=== PATIENT | female | born 1980 | race Caucasian/White ===

== ENCOUNTER → 2019-05-22 07:04 | Outpatient (CLI) | payer BC, SELFPAY ==
[2019-05-22 08:39] LABS: Alanine Aminotransferase 22 IU/L (9-52); Albumin 4.3 g/dL (3.5-5.0); Albumin Globulin Ratio 1.3 (1.0-2.8); Alkaline Phosphatase 62 U/L (38-126); Aspartate Aminotransferase 22 IU/L (14-36); BUN Creatinine Ratio 23.3 (6-22); Bilirubin Total 0.4 mg/dL (0.2-1.3); Blood Urea Nitrogen 14 mg/dL (7-17); Calcium 9.2 mg/dL (8.4-10.2); Carbon Dioxide 27 mmol/L (22-32); Chloride 103 mmol/L (98-107); Cholesterol 146 mg/dL (140-199); Estimated Glomerular Filt Rate > 60.0 mL/min (>60); Globulin 3.3 g/dL (1.7-4.1); Glucose 101 mg/dL (70-100); HDL Cholesterol 39 mg/dL (40-60); HEMOLYSIS < 15 (0-50); LDL Cholesterol Calculated 70 mg/dL (<100); Potassium 3.5 mmol/L (3.4-5.1); Sodium 139 mmol/L (137-145); Total Protein 7.6 g/dL (6.3-8.2); Triglycerides 186 mg/dL (35-150)
[2019-05-22 08:46] LABS: Creatinine Urine Random 135.7 mg/dL
[2019-05-22 08:50] LABS: Microalbumi Creatinin Ratio Ur 11.7 ug/mg CR (<30); Microalbumin Urine Random 1.6 mg/dL (0-1.6)
[2019-05-22 09:05] LABS: Thyroid Stimulating Hormone 2.14 uIU/mL (0.47-4.68)
== END ==
PROVIDERS: PCP Physician Assistant; Visit Provider Physician Assistant
DX: Z00.00 Encounter for general adult medical examination without abnormal findings (principal); Z13.1 Encounter for screening for diabetes mellitus; Z13.220 Encounter for screening for lipoid disorders; Z13.6 Encounter for screening for cardiovascular disorders
CPT/HCPCS: 36415; 80053; 80061; 82043; 82570; 84443

== ENCOUNTER → 2020-05-16 08:00 | Outpatient (CLI) | payer BC, SELFPAY ==
[2020-05-16 10:02] LABS: Alanine Aminotransferase 18 IU/L (<35); Albumin 4.5 g/dL (3.5-5.0); Albumin Globulin Ratio 1.5 (1.0-2.8); Alkaline Phosphatase 51 U/L (38-126); Aspartate Aminotransferase 27 IU/L (14-36); BUN Creatinine Ratio 20.3 (6-22); Bilirubin Total 0.3 mg/dL (0.2-1.3); Blood Urea Nitrogen 14 mg/dL (7-17); Calcium 9.2 mg/dL (8.4-10.2); Carbon Dioxide 25 mmol/L (22-32); Chloride 106 mmol/L (98-107); Estimated Glomerular Filt Rate > 60.0 mL/min (>60); Glucose 99 mg/dL (70-100); HEMOLYSIS < 15 (0-50); Potassium 3.5 mmol/L (3.4-5.1); Sodium 139 mmol/L (137-145); Total Protein 7.5 g/dL (6.3-8.2)
[2020-05-16 10:36] LABS: Thyroid Stimulating Hormone 3.65 uIU/mL (0.47-4.68)
== END ==
PROVIDERS: PCP Family Medicine; Referring Provider Family Medicine; Visit Provider Family Medicine
DX: Z00.00 Encounter for general adult medical examination without abnormal findings (principal); F32.9 Major depressive disorder, single episode, unspecified
CPT/HCPCS: 36415; 80053; 84443

== ENCOUNTER → 2020-08-05 09:53 | Outpatient (CLI) | payer BC, SELFPAY ==
--- NOTE | 2020-08-05 09:55 | DI.RAD.S_ITS ---
PROCEDURE: XR LUMBAR SPINE 2-3V INDICATIONS: Acute low back pain TECHNIQUE: 3 views of the lumbar spine were acquired. COMPARISON: [facility], CR, XR CERVICAL SPINE 2V OR 3V, 08/05/2020, 9:51. FINDINGS: Bones: 5 [id number] vertebrae are present. There is minimal levoconvex lumbar scoliotic curvature seen. No focal AP alignment abnormality is seen. No vertebral body compression fractures. No suspicious bony lesions. The disc heights are well preserved. Mild lower lumbar spine facet arthropathy is seen. Soft tissues: Overlying bowel gas pattern is normal. No suspicious soft tissue calcifications. Right pelvis clips are seen. IMPRESSION: No acute abnormality is seen on these plain films. Lower lumbar spine facet arthropathy can be seen. Minimal levoconvex scoliotic curvature. Dictated by: Bishnu Ashton M.D. on 08/05/2020 at 9:53 Approved by: Bishnu Ashton M.D. on 08/05/2020 at 9:54
--- NOTE | 2020-08-05 09:55 | DI.RAD.S_ITS ---
PROCEDURE: XR CERVICAL SPINE 2V OR 3V INDICATIONS: Progressive neck and right shoulder pain TECHNIQUE: 3 view(s) of the cervical spine were acquired. COMPARISON: [facility], CR, XR LUMBAR SPINE 2-3V, 08/05/2020, 9:51. FINDINGS: Bones: No fractures or dislocations to the T1 level. The lateral masses of C1 appear intact on the odontoid view. No suspicious bony lesions. There is straightening of the normal cervical lordosis. The disc heights are well preserved. Soft tissues: No prevertebral soft tissue swelling. The visualized lung apices are unremarkable. IMPRESSION: Straightening of the normal cervical lordosis is seen, which is commonly observed in patients with muscular spasm. Dictated by: Bishnu Ashton M.D. on 08/05/2020 at 9:54 Approved by: Bishnu Ashton M.D. on 08/05/2020 at 9:55
== END ==
PROVIDERS: PCP Family Medicine; Referring Provider Family Medicine; Visit Provider Family Medicine
DX: S16.1XXA Strain of muscle, fascia and tendon at neck level, initial encounter (principal); M54.2 Cervicalgia; M25.511 Pain in right shoulder; M54.5 Low back pain; M47.816 Spondylosis without myelopathy or radiculopathy, lumbar region
CPT/HCPCS: 72040; 72100

== ENCOUNTER 2020-08-12 17:06 | Emergency (ER) | payer BC, SELFPAY ==
[2020-08-12] VITALS (8 sets, daily range): BP systolic 140–188; BP diastolic 88–108; PULSE 61–67; RESP 13–48; TEMP 36.6; O2SAT 98–99; BMI 28.2
[2020-08-12] MEDS: LIDOCAINE 2% 6 ML in SODIUM CHLORIDE 0.9% 50 ML 336 ML IV (18:10)
[2020-08-12] MEDS: ONDANSETRON 4 MG/2 ML INJ IV (18:10)
[2020-08-12 18:16] LABS: Bacteria Urine Many (>30); Culture Indicated Urine Specimen Cultured; RBC Urine 5-10/HPF (0-5/HPF); Squamous Epithelial Cell Urine 1-5 /HPF (0-5/HPF); WBC Urine 5-10/HPF (0-5/HPF)
[2020-08-12] MEDS: KETOROLAC 60 MG/2 ML VIAL 30 MG IV (18:18)
--- NOTE | 2020-08-12 18:23 | ED_ITS ---
HPI - Abdominal Pain General Chief Complaint: Abdominal Pain Stated Complaint: thinks she has a kidney stone Time Seen by Provider: 08/12/20 17:29 Source: patient Mode of arrival: Ambulatory Limitations: no limitations History of Present Illness HPI narrative: 39-year-old woman with a history kidney stones 5 years ago status post lithotripsy presents with 2 days of bladder symptoms including burning and a sense of incomplete voiding and pressure. She increased cranberry juice hoping that things would improve however she woke this morning and felt generally unwell without a fever vomiting, diarrhea, cough, chest pain, dyspnea. Began developing left-sided flank pain around 11:00 a.m. high up near the kidney described as a burning, constant type pain. Only other complaint is a sense of feeling bloated. Related Data Home Medications Medication Instructions Recorded Confirmed cetirizine 10 mg tablet 10 mg PO DAILY 04/07/19 08/05/20 fluticasone propionate 50 2 spray NASAL DAILY 04/07/19 08/05/20 mcg/actuation nasal spray,suspension multivitamin 1 tab PO DAILY 05/20/19 08/05/20 Previous Rx's Medication Instructions Recorded hydrochlorothiazide 25 mg tablet 25 mg PO DAILY PRN #30 tab 05/20/19 zaleplon 5 mg capsule See Rx Instructions PO BEDTIME PRN 11/11/19 #45 cap sertraline 100 mg tablet 100 mg PO DAILY #90 tab 03/08/20 cyclobenzaprine 10 mg tablet 10 mg PO BEDTIME #20 tab 07/13/20 naproxen 500 mg tablet 500 mg PO BID #30 tab 07/13/20 tramadol 50 mg tablet 50 mg PO TID PRN #30 tab 07/13/20 lidocaine 5 % topical patch 1 patch TOP DAILY #30 each 08/05/20 methocarbamol 500 mg tablet 500 mg PO TID #30 tab 08/05/20 naproxen 500 mg tablet 500 mg PO BID #60 tab 08/05/20 levofloxacin 500 mg PO DAILY #7 tab 08/12/20 Allergies Allergy/AdvReac Type Severity Reaction Status Date / Time Sulfa (Sulfonamide Allergy Severe Anaphylactic Verified 08/12/20 17:21 Antibiotics) shock Penicillins Allergy Intermediate Hives Verified 08/12/20 17:21 cefaclor [From [facility]] Allergy Mild Hives Verified 08/12/20 17:21 Review of Systems Review of Systems Narrative: Remainder of review of systems including constitutional, ENT, cardiovascular, respiratory, GI, , musculoskeletal, skin, neurologic and psychiatric systems reviewed and are unremarkable except as noted in HPI. Patient History Medical History Asthma (Chronic) Cervical strain (Acute) Fractures (Resolved) Kidney stones (Chronic ~2013) Lumbar strain (Acute) Seasonal allergies (Chronic ~2015) Surgical History H/O lithotripsy (Acute) H/O: hysterectomy (Acute) Family History Father Hyperlipidemia Hypertension Grandfather Cancer Grandmother Cancer Grandfather Dementia Grandmother Dementia Social History Smoking Status: Never smoker second hand exposure: No alcohol intake: never substance use type: does not use Smoking Status: Never smoker Substance Use Type: does not use Exam Narrative Exam Narrative: General: Healthy appearing, in no acute distress. Able to give a complete and coherent history. Well-nourished well-developed HEENT: Moist mucous membranes, normal sclera with reactive pupils, Neck: No JVD, supple Respiratory: Lungs are clear to auscultation, no wheezing no rales no rhonchi. Full and symmetrical air movement Cardiac: Regular rate and rhythm no murmurs no bruits Abdomen: Soft slightly distended, hypoactive bowel tones, left upper flank pain radiating into the left lower quadrant without rebound or guarding Skin: Warm and dry, no rashes Neurologic: Grossly neurologically intact with no obvious asymmetries or abnormalities Extremities: No trauma, well perfused Psych: Cooperative, appropriate insight and affect Initial Vital Signs Initial Vital Signs: Vital Signs Pulse Rate 64 08/12/20 17:14 Blood Pressure 186/103 H 08/12/20 17:14 Pulse Oximetry 99 08/12/20 17:14 Course Orders Ordered: ED Orders 08/12/20 17:55 Urine Culture Stat Urine Microscopic Stat 08/12/20 18:27 CT kidney ureter bladder (KUB) Stat 08/12/20 20:23 Basic Metabolic Panel Stat Complete Blood Count AUTO DIFF Stat Discontinued Medications Lidocaine HCl 6 ml/ Sodium (Chloride) 56 mls @ 336 mls/hr IV NOW ONE Stop: 08/12/20 17:47 Last Infusion: 08/12/20 18:27 Dose: 0 mls/hr Documented by: Admin: 08/12/20 18:10 Dose: 336 mls/hr Documented by: KT Levofloxacin (Levaquin) 750 mg in 150 mls @ 100 mls/hr IV NOW ONE Stop: 08/12/20 21:53 Last Infusion: 08/12/20 22:07 Dose: 0 mls/hr Documented by: Admin: 08/12/20 20:37 Dose: 100 mls/hr Documented by: CAROLA Ketorolac Tromethamine (Toradol) 30 mg IV NOW ONE Stop: 08/12/20 18:00 Last Admin: 08/12/20 18:18 Dose: 30 mg Documented by: KT Ondansetron HCl (Zofran) 4 mg IV NOW ONE Stop: 08/12/20 17:47 Last Admin: 08/12/20 18:10 Dose: 4 mg Documented by: KT Vital Signs Vital signs: Vital Signs - 8 hr 08/12/20 17:14 08/12/20 17:21 08/12/20 17:23 Temperature 97.9 F Pulse Rate 64 67 65 Respiratory Rate 18 22 Blood Pressure 186/103 H 186/103 H Pulse Oximetry 99 99 99 08/12/20 18:12 08/12/20 18:16 08/12/20 18:20 Temperature Pulse Rate 67 Respiratory Rate 48 H 23 Blood Pressure 188/97 H 181/108 H Pulse Oximetry 08/12/20 18:30 08/12/20 21:54 Temperature Pulse Rate 61 63 Respiratory Rate 13 20 Blood Pressure 173/102 H 140/88 Pulse Oximetry 98 MDM - Abdominal Pain Medical Records Attestation: I reviewed the patient's medical records. Lab Data Attestation: I reviewed the patient's lab results. Result diagrams: 08/12/20 20:23 08/12/20 20:23 Labs: Lab Results 08/12/20 08/12/20 08/12/20 Range/Units 17:55 20:23 20:23 WBC 8.8 (4.5-11.0) X10^3/uL RBC 4.38 (4.0-5.2) X10^6/uL Hgb 12.3 (12.0-16.0) g/dL Hct 37.2 (36-46) % MCV 85.0 (80-100) fL MCH 28.1 (26-34) PG MCHC 33.1 (30-36) % RDW 13.9 (11.6-14.8) % Plt Count 225 (150-400) X10^3/uL Neut % (Auto) 53.4 (50-75) % Lymph % (Auto) 34.1 (25-40) % Mcdonald % (Auto) 8.0 (3-14) % Eos % (Auto) 4.0 (2-4) % Baso % (Auto) 0.5 (0-2) % Neut # (Auto) 4700 (8354-8858) /uL Lymph # (Auto) 3000 (7524-1314) /uL Mcdonald # (Auto) 700 (0-900) /uL Eos # (Auto) 400 (0-450) /uL Baso # (Auto) 0 (0-100) /uL Sodium 139 (137-145) mmol/L Potassium 3.8 (3.4-5.1) mmol/L Chloride 107 (98-107) mmol/L Carbon Dioxide 27 (22-32) mmol/L BUN 11 (7-17) mg/dL Creatinine 0.52 (0.52-1.04) mg/dL Estimated GFR > 60.0 (>60) mL/min BUN/Creatinine Ratio 21.2 (6-22) Glucose 94 (70-100) mg/dL Calcium 8.9 (8.4-10.2) mg/dL Urine RBC 5-10/hpf H (0-5/HPF) Urine WBC 5-10/hpf H (0-5/HPF) Ur Squamous Epith Cells 1-5 /hpf (0-5/HPF) Urine Bacteria Many (>30) H (None) Ur Culture Indicated? Specimen cultured Point of care testing: Urine Dip Bedside Urine Glucose Negative Bedside Urine Bilirubin - Negative Bedside Urine Ketone - Negative Urine Specific [place] 1.015 Bedside Urine Occult Blood ++ Bedside Urine pH 6.5 Bedside Urine Protein - Negative Bedside Urine Urobilinogen - Negative Bedside Urine Nitrite - Negative Bedside Urine Leukocytes - Negative Esterase Imaging Data CT KUB: Radiologist's Impression: FINDINGS: Image quality: Excellent. Lung bases: Lung bases are clear. Heart size is normal. Urinary system: Both kidneys are normal in size. No kidney stones. No hydronephrosis or perinephric fat stranding. Both ureters appear non-dilated throughout their expected courses. Bladder wall thickness is normal; no calcified bladder stones. Other solid organs: Liver is normal in size. Gallbladder is unremarkable . Pancreas is normal in contours. Spleen is normal in size. No adrenal nodules. Peritoneum and bowel: Unenhanced bowel loops demonstrate normal wall thickness and caliber. The appendix is not visualized; however surgical clips are present in the region of the cecum in the lower quadrant suggesting prior appendectomy. No free fluid or air. Nodes and vessels: No retroperitoneal or mesenteric adenopathy by size criteria. Aorta and inferior vena cava are normal in caliber. Abdominal wall: No ventral hernias. Pelvis: No free pelvic fluid. No inguinal hernias or adenopathy. Bones: No suspicious bony lesions. No vertebral body compression fractures. IMPRESSION: 1. No hydronephrosis, nephrolithiasis, hydroureter, or ureterolithiasis. 1. No acute intra-abdominal findings. Findings likely associated with prior appendectomy. Dictated by: Zahira Mcdaniels M.D. on 08/12/2020 at 18:53 MDM Narrative Medical decision making narrative: 39-year-old woman presents with dysuria for 48 hours and increasing left flank pain. Workup suggest no evidence for acute kidney stone nor dramatic pyelonephritis. She is not septic. Due to her allergies, Levaquin was chosen as the treatment drug of choice. First dose is given IV in the emergency department. She will be discharged home with a prescription for same. Along with instructions on when to return and signs and symptoms of pyelonephritis. Safe for home discharge Discharge Plan Departure Patient Disposition: Home Clinical Impression: Urinary tract infection Qualifiers: Urinary tract infection type: acute cystitis Hematuria presence: with hematuria Qualified Code(s): N30.01 - Acute cystitis with hematuria Discharge Date/Time: 08/12/20 22:09 Instructions: DI for Kidney Infection Activity Restrictions/Additional Instructions: Thank you for coming in today There is no sign of a kidney stone. Your lab work was very reassuring with no signs of sepsis or overwhelming infection. Your urine clearly looks like a bladder infection and with your worsening symptoms I am concerned that this will develop or is beginning to develop into a kidney infection. With all of your allergies, I have used an antibiotic called Levaquin. I will ask you to continue a full 7 day course. If you develop worsening fevers, chills, pain or other symptoms that are new or concerning please return to the emergency department. I wish you the best Prescriptions: New levofloxacin 500 mg tablet 500 mg PO DAILY Qty: 7 RF: 0 No Action zaleplon 5 mg capsule See Rx Instructions PO BEDTIME PRN (Reason: difficulty staying asleep) Qty: 45 RF: 0 sertraline 100 mg tablet 100 mg PO DAILY Qty: 90 RF: 3 cetirizine [Zyrtec] 10 mg tablet 10 mg PO DAILY RF: 0 fluticasone propionate [Flonase Allergy Relief] 50 mcg/actuation spray,s uspension 2 spray NASAL DAILY RF: 0 multivitamin tablet 1 tab PO DAILY RF: 0 hydrochlorothiazide 25 mg tablet 25 mg PO DAILY PRN (Reason: edema) Qty: 30 RF: 3 cyclobenzaprine 10 mg tablet 10 mg PO BEDTIME Qty: 20 RF: 0 tramadol 50 mg tablet 50 mg PO TID PRN (Reason: pain) Qty: 30 RF: 0 naproxen 500 mg tablet 500 mg PO BID Qty: 30 RF: 0 lidocaine 5 % adhesive patch,medicated 1 patch TOP DAILY Qty: 30 RF: 0 methocarbamol 500 mg tablet 500 mg PO TID Qty: 30 RF: 1 naproxen 500 mg tablet 500 mg PO BID Qty: 60 RF: 1 Referrals: Robert Ramirez, [Primary Care Provider] -
--- NOTE | 2020-08-12 18:27 | DI.CT.S_ITS ---
PROCEDURE: CT KIDNEY URETER BLADDER (KUB) INDICATIONS: Left flank pain with hematuria TECHNIQUE: Noncontrast 5 mm thick sections acquired from the diaphragms to the symphysis. 5 mm thick coronal and sagittal reformats were then performed. For radiation dose reduction, the following was used: automated exposure control, adjustment of mA and/or kV according to patient size. COMPARISON: None. FINDINGS: Image quality: Excellent. Lung bases: Lung bases are clear. Heart size is normal. Urinary system: Both kidneys are normal in size. No kidney stones. No hydronephrosis or perinephric fat stranding. Both ureters appear non-dilated throughout their expected courses. Bladder wall thickness is normal; no calcified bladder stones. Other solid organs: Liver is normal in size. Gallbladder is unremarkable . Pancreas is normal in contours. Spleen is normal in size. No adrenal nodules. Peritoneum and bowel: Unenhanced bowel loops demonstrate normal wall thickness and caliber. The appendix is not visualized; however surgical clips are present in the region of the cecum in the lower quadrant suggesting prior appendectomy. No free fluid or air. Nodes and vessels: No retroperitoneal or mesenteric adenopathy by size criteria. Aorta and inferior vena cava are normal in caliber. Abdominal wall: No ventral hernias. Pelvis: No free pelvic fluid. No inguinal hernias or adenopathy. Bones: No suspicious bony lesions. No vertebral body compression fractures. IMPRESSION: 1. No hydronephrosis, nephrolithiasis, hydroureter, or ureterolithiasis. 1. No acute intra-abdominal findings. Findings likely associated with prior appendectomy. Dictated by: Zahira Mcdaniels M.D. on 08/12/2020 at 18:53 Approved by: Zahira Mcdaniels M.D. on 08/12/2020 at 18:56
[2020-08-12 20:31] LABS: Add Manual Diff / Slide Review NO; Basophils Absolute Auto 0 /uL (0-100); Basophils Percent Auto 0.5 % (0-2); Eosinophils Absolute Auto 400 /uL (0-450); Hematocrit 37.2 % (36-46); Hemoglobin 12.3 g/dL (12.0-16.0); Lymphocytes Absolute Auto 3000 /uL (1100-4500); Lymphocytes Percent Auto 34.1 % (25-40); Mean Corpuscular HGB Conc 33.1 % (30-36); Mean Corpuscular Hemoglobin 28.1 PG (26-34); Monocytes Absolute Auto 700 /uL (0-900); Neutrophils Absolute Auto 4700 /uL (1500-7000); Neutrophils Percent Auto 53.4 % (50-75); Platelet Count 225 X10^3/uL (150-400); Red Blood Cell Count 4.38 X10^6/uL (4.0-5.2); Red Cell Distribution Width 13.9 % (11.6-14.8); White Blood Cell Count 8.8 X10^3/uL (4.5-11.0)
[2020-08-12] MEDS: levoFLOXacin 750 MG/150 ML PIGGYBACK 100 MG IV (20:37)
[2020-08-12 20:43] LABS: BUN Creatinine Ratio 21.2 (6-22); Blood Urea Nitrogen 11 mg/dL (7-17); Calcium 8.9 mg/dL (8.4-10.2); Carbon Dioxide 27 mmol/L (22-32); Chloride 107 mmol/L (98-107); Estimated Glomerular Filt Rate > 60.0 mL/min (>60); Glucose 94 mg/dL (70-100); HEMOLYSIS < 15 (0-50); Potassium 3.8 mmol/L (3.4-5.1); Sodium 139 mmol/L (137-145)
== END 2020-08-12 22:09 | disposition home or self-care (01) ==
PROVIDERS: Emergency Medicine; Emergency Provider Emergency Medicine; PCP Family Medicine
DX: N30.01 Acute cystitis with hematuria (principal)
CPT/HCPCS: 74176; 80048; 81003; 81015; 85025; 87077; 87086; 87186; 96365; 96367; 96375; 99284; J1885; J1956; J2405

== ENCOUNTER → 2020-08-19 10:02 | Outpatient (CLI) | payer BC, SELFPAY | PROVIDERS: PCP Family Medicine; Visit Provider Family Medicine | DX: N30.01 Acute cystitis with hematuria (principal) | CPT/HCPCS: 87086 ==

== ENCOUNTER 2020-10-05 05:03 | Emergency (ER) | payer BC, SELFPAY ==
[2020-10-05] VITALS (12 sets, daily range): BP systolic 150–189; BP diastolic 81–104; PULSE 54–65; RESP 12–23; TEMP 36.8; O2SAT 98–100; BMI 28.2
[2020-10-05] MEDS: ONDANSETRON 4 MG/2 ML INJ IV ×2 (05:36→08:38)
[2020-10-05] MEDS: diazePAM 5 MG TABLET PO (05:36)
--- NOTE | 2020-10-05 05:39 | ED_ITS ---
HPI - General Adult <Kamran Rivas DO - Last Filed: 10/05/20 18:39> General Chief complaint: Dizziness Stated complaint: Dizzy, headache, weakness since 9pm Time Seen by Provider: 10/05/20 05:05 Source: patient and family Mode of arrival: Ambulatory Limitations: no limitations History of Present Illness HPI narrative: Patient is a 39-year-old female here for evaluation of dizziness and a slight headache. She states that the symptoms started last evening at approximately 2100 hours. She was sitting on the couch when she stood up the symptoms started. They have been consistent since then. When she closes her eyes she feels like the symptoms improved somewhat. Has had quite a bit of nausea. No ringing in her ears. No sore throat. No fevers. Has not tried anything for the symptoms prior to arrival. She also describes a slight headache and weakness in her lower extremities. Related Data Home Medications Medication Instructions Recorded Confirmed cetirizine 10 mg tablet 10 mg PO DAILY 04/07/19 08/19/20 fluticasone propionate 50 2 spray NASAL DAILY 04/07/19 08/19/20 mcg/actuation nasal spray,suspension multivitamin 1 tab PO DAILY 05/20/19 08/19/20 Previous Rx's Medication Instructions Recorded hydrochlorothiazide 25 mg tablet 25 mg PO DAILY PRN #30 tab 05/20/19 zaleplon 5 mg capsule See Rx Instructions PO BEDTIME PRN 11/11/19 #45 cap sertraline 100 mg tablet 100 mg PO DAILY #90 tab 03/08/20 cyclobenzaprine 10 mg tablet 10 mg PO BEDTIME #20 tab 07/13/20 naproxen 500 mg tablet 500 mg PO BID #30 tab 07/13/20 tramadol 50 mg tablet 50 mg PO TID PRN #30 tab 07/13/20 lidocaine 5 % topical patch 1 patch TOP DAILY #30 each 08/05/20 methocarbamol 500 mg tablet 500 mg PO TID #30 tab 08/05/20 naproxen 500 mg tablet 500 mg PO BID #60 tab 08/05/20 levofloxacin 500 mg PO DAILY #7 tab 08/12/20 diazepam [Valium] 5 mg PO Q6H PRN #14 tab 10/05/20 meclizine 25 mg PO Q6-8H PRN #14 tab 10/05/20 ondansetron 4 mg PO Q4H PRN #14 tab 10/05/20 Allergies Allergy/AdvReac Type Severity Reaction Status Date / Time Sulfa (Sulfonamide Allergy Severe Anaphylactic Verified 10/05/20 05:22 Antibiotics) shock Penicillins Allergy Intermediate Hives Verified 10/05/20 05:22 cefaclor [From Ceclor] Allergy Mild Hives Verified 10/05/20 05:22 Review of Systems <Kamran Rivas DO - Last Filed: 10/05/20 18:39> Constitutional Constitutional: Reports fatigue, Denies fever(s), Reports headache(s) and Reports weakness Eyes Eyes: Reports blurry vision ENT Ears, Nose, Mouth, and Throat: Reports vertigo, Reports dizziness, Reports headache(s), Reports disequilibrium and Denies sore throat Cardiovascular Cardiovascular: Denies chest pain and Denies dyspnea Respiratory Respiratory: Denies dyspnea Gastrointestinal Gastrointestinal: Denies abdominal pain, Reports nausea and Denies vomiting Genitourinary Genitourinary: Denies dysuria Genitourinary: Denies dysuria Musculoskeletal Musculoskeletal: Denies arthralgias and Denies myalgias Integumentary/Breasts Skin/Breast: Denies lesions and Denies rash Neurologic Neurologic: Denies behavioral changes, Denies confusion, Reports vertigo, Reports dizziness, Reports headache(s), Reports disequilibrium and Reports weakness Psychiatric Psychiatric: Denies behavioral changes and Denies confusion Endocrine Endocrine: Reports fatigue Hematologic/Lymphatic Hematologic/Lymphatic: Denies easy bleeding and Denies easy bruising Allergic/Immunologic Allergic/Immunologic: Denies urticaria Patient History <Kamran Rivas DO - Last Filed: 10/05/20 18:39> Medical History (Updated 10/05/20 @ 08:28 by Marc Foley MD) Asthma Cervical strain Fractures Kidney stones (~2013) Lumbar strain Seasonal allergies (~2015) Surgical History H/O lithotripsy H/O: hysterectomy Family History Father Hyperlipidemia Hypertension Grandfather Cancer Grandmother Cancer Grandfather Dementia Grandmother Dementia Social History Smoking Status: Never smoker second hand exposure: No alcohol intake: never substance use type: does not use Smoking Status: Never smoker alcohol intake frequency: other Substance Use Type: does not use Exam <DO Abdulkadir Everett Last Filed: 10/05/20 18:39> Initial Vital Signs Initial Vital Signs: Vital Signs Pulse Rate 62 10/05/20 05:20 Respiratory Rate 12 10/05/20 05:20 Blood Pressure 170/104 H 10/05/20 05:20 Pulse Oximetry 99 10/05/20 05:20 Const General: cooperative Limitations: mental status not altered HENMT Head: normal to inspection and normocephalic Ears: TM's normal bilaterally Nose: external nose normal Face and sinus: normal facial exam Eyes Pupils: PERRL EOM: EOM intact bilaterally Resp Effort & Inspection: normal respiratory effort Auscultation: clear to auscultation bilaterally Cardio Rate: regular rate Rhythm: regular rhythm GI Inspection: non-distended Palpation: soft and No firm Skin Lesions: no lesions Rashes: no rashes Neuro General: patient alert, patient awake and patient oriented x3 Cognition: normal cognition Motor: muscle tone normal throughout Sensory Exam: no sensory deficits noted Extrem General: normal to inspection and capillary refill normal Psych Appearance: grossly normal and well kempt <Marc Foley MD - Last Filed: 10/05/20 09:14> Initial Vital Signs Initial Vital Signs: Vital Signs Pulse Rate 62 10/05/20 05:20 Respiratory Rate 12 10/05/20 05:20 Blood Pressure 170/104 H 10/05/20 05:20 Pulse Oximetry 99 10/05/20 05:20 Scores <DO Abdulkadir Everett Last Filed: 10/05/20 18:39> GCS [place] coma scale eye opening: Spontaneous [place] coma scale verbal response: Orientated [place] coma scale motor response: Obey commands [place] coma scale total score: 15 Course <DO Abdulkadir Everett Last Filed: 10/05/20 18:39> Orders Ordered: Discontinued Medications Diazepam (Diazepam 5 Mg Tablet) 5 mg PO NOW ONE Stop: 10/05/20 05:33 Last Admin: 10/05/20 05:36 Dose: 5 mg Documented by: AUPDIKE Meclizine HCl (Meclizine Hcl 12.5 Mg Tablet) 25 mg PO NOW ONE Stop: 10/05/20 06:51 Last Admin: 10/05/20 06:54 Dose: 25 mg Documented by: LAURE Ondansetron HCl (Ondansetron 4 Mg/2 Ml Inj) 4 mg IV NOW ONE Stop: 10/05/20 05:33 Last Admin: 10/05/20 05:36 Dose: 4 mg Documented by: LAURE Ondansetron HCl (Ondansetron 4 Mg/2 Ml Inj) 4 mg IV NOW ONE Stop: 10/05/20 08:35 Last Admin: 10/05/20 08:38 Dose: 4 mg Documented by: TAYLOR Vital Signs Vital signs: Vital Signs - 8 hr 10/05/20 05:20 10/05/20 05:22 10/05/20 05:30 Temperature 98.3 F Pulse Rate 62 65 65 Respiratory Rate 12 18 13 Blood Pressure 170/104 H 189/102 H 170/102 H Pulse Oximetry 99 99 98 10/05/20 06:00 10/05/20 06:30 10/05/20 06:56 Temperature Pulse Rate 64 57 L 54 L Respiratory Rate 23 19 17 Blood Pressure 158/100 H 166/89 H 159/88 H Pulse Oximetry 98 98 99 10/05/20 07:00 10/05/20 07:30 10/05/20 08:00 Temperature Pulse Rate 57 L 54 L 62 Respiratory Rate 15 12 Blood Pressure 150/81 H 163/90 H Pulse Oximetry 99 99 99 10/05/20 08:30 10/05/20 08:34 10/05/20 08:38 Temperature Pulse Rate 54 L 54 L 55 L Respiratory Rate 12 12 14 Blood Pressure 163/91 H Pulse Oximetry 99 100 99 <Marc Foley MD - Last Filed: 10/05/20 09:14> Course Course Narrative: The patient was initially evaluated and treated by Dr. Rivas. He gave Valium initially, due to ongoing symptoms I dose of meclizine was given. At this time she is improved, but is not symptom free. She is sitting up with slight dizziness compared to earlier. She has ongoing nausea without emesis. She denies any headache. She has no visual changes. She denies confusion. She has no focal numbness or weakness. She reports symptoms consistent with a viral URI over the past 2 days. She has no chronic ENT disease, no chronic dizziness. On my repeat exam: Vitals are reviewed and are stable. ENT is normal. Cardiovascular: RRR, no murmur. Normal S1-S2. Normal sinus rhythm on cardiac technologist. Neuro exam: Motor and sensory intact. She is oriented x3. Sees is improved. I will treat her for labyrinthitis. She will be discharged home on Valium, Meclizine, and Zofran as needed for nausea. Orders Ordered: Discontinued Medications Diazepam (Diazepam 5 Mg Tablet) 5 mg PO NOW ONE Stop: 10/05/20 05:33 Last Admin: 10/05/20 05:36 Dose: 5 mg Documented by: LAURE Meclizine HCl (Meclizine Hcl 12.5 Mg Tablet) 25 mg PO NOW ONE Stop: 10/05/20 06:51 Last Admin: 10/05/20 06:54 Dose: 25 mg Documented by: LAURE Ondansetron HCl (Ondansetron 4 Mg/2 Ml Inj) 4 mg IV NOW ONE Stop: 10/05/20 05:33 Last Admin: 10/05/20 05:36 Dose: 4 mg Documented by: LAURE Ondansetron HCl (Ondansetron 4 Mg/2 Ml Inj) 4 mg IV NOW ONE Stop: 10/05/20 08:35 Last Admin: 10/05/20 08:38 Dose: 4 mg Documented by: TAYLOR Vital Signs Vital signs: Vital Signs - 8 hr 10/05/20 05:20 10/05/20 05:22 10/05/20 05:30 Temperature 98.3 F Pulse Rate 62 65 65 Respiratory Rate 12 18 13 Blood Pressure 170/104 H 189/102 H 170/102 H Pulse Oximetry 99 99 98 10/05/20 06:00 10/05/20 06:30 10/05/20 06:56 Temperature Pulse Rate 64 57 L 54 L Respiratory Rate 23 19 17 Blood Pressure 158/100 H 166/89 H 159/88 H Pulse Oximetry 98 98 99 10/05/20 07:00 10/05/20 07:30 10/05/20 08:00 Temperature Pulse Rate 57 L 54 L 62 Respiratory Rate 15 12 Blood Pressure 150/81 H 163/90 H Pulse Oximetry 99 99 99 10/05/20 08:30 10/05/20 08:34 12/02/20 08:38 Temperature Pulse Rate 54 L 54 L 55 L Respiratory Rate 12 12 14 Blood Pressure 163/91 H Pulse Oximetry 99 100 99 Medical Decision Making <Kamran Rivas, DO - Last Filed: 10/05/20 18:39> ECG Data Attestation: I personally reviewed and interpreted this ECG as follows: Prior ECG tracings: not available for review Interpretation: Sinus bradycardia Ventricular rate of 54 Normal axis Normal QRS Normal QTC No ST T wave changes MDM Narrative Medical decision making narrative: Patient did have positional symptoms. Her symptoms were worse when she looked to the left. They were still present when she looked to the right but significantly better than the left. She was given Valium which improved her symptoms tremendously until she stood up and became very unsteady. She was then given meclizine. Care turned over to day provider change of shift to re-evaluate and disposition. Discharge Plan Departure Patient Disposition: Home Clinical Impression: Acute labyrinthitis Qualifiers: Laterality: left Qualified Code(s): H83.02 - Labyrinthitis, left ear Instructions: DI for Labyrinthitis Activity Restrictions/Additional Instructions: Rest at home, be sure you drink plenty of fluids and remain well hydrated. Meclizine every 6 hours as needed for dizziness. Valium every 6 hours for added control dizziness. Zofran every 4 hours prevent nausea. Follow-up with your doctor within 2 days of not improving, return the ER if obviously worse. Prescriptions: New diazepam [Valium] 5 mg tablet 5 mg PO Q6H PRN (Reason: dizziness) Qty: 14 RF: 0 meclizine 25 mg tablet,chewable 25 mg PO Q6-8H PRN (Reason: dizziness) Qty: 14 RF: 0 ondansetron 4 mg tablet,disintegrating 4 mg PO Q4H PRN (Reason: nausea and vomiting) Qty: 14 RF: 0 No Action zaleplon 5 mg capsule See Rx Instructions PO BEDTIME PRN (Reason: difficulty staying asleep) Qty: 45 RF: 0 sertraline 100 mg tablet 100 mg PO DAILY Qty: 90 RF: 3 cetirizine [Zyrtec] 10 mg tablet 10 mg PO DAILY RF: 0 fluticasone propionate [Flonase Allergy Relief] 50 mcg/actuation spray,suspension 2 spray NASAL DAILY RF: 0 multivitamin tablet 1 tab PO DAILY RF: 0 hydrochlorothiazide 25 mg tablet 25 mg PO DAILY PRN (Reason: edema) Qty: 30 RF: 3 cyclobenzaprine 10 mg tablet 10 mg PO BEDTIME Qty: 20 RF: 0 tramadol 50 mg tablet 50 mg PO TID PRN (Reason: pain) Qty: 30 RF: 0 naproxen 500 mg tablet 500 mg PO BID Qty: 30 RF: 0 lidocaine 5 % adhesive patch,medicated 1 patch TOP DAILY Qty: 30 RF: 0 methocarbamol 500 mg tablet 500 mg PO TID Qty: 30 RF: 1 naproxen 500 mg tablet 500 mg PO BID Qty: 60 RF: 1 levofloxacin 500 mg tablet 500 mg PO DAILY Qty: 7 RF: 0 Referrals: Robert Ramirez DO [Primary Care Provider] -
--- NOTE | 2020-10-05 06:50 | PC.NURSE ---
Attempted to ambulate pt. Pt sat on the bed with some slight dizziness. When pt went to stand she states she felt as if she was going to fall over. Pt was unable to ambulate. informed.
[2020-10-05] MEDS: MECLIZINE HCL 12.5 MG TABLET 25 MG PO (06:54)
--- NOTE | 2020-10-05 08:13 | PC.NURSE ---
Patient able to stand at bedside, reports some dizziness best if eyes are closed. Reports improvement since last medication, feels as though she would be able to manage at home. Provider aware of patient improvement
== END 2020-10-05 09:00 | disposition home or self-care (01) ==
PROVIDERS: Emergency Provider Emergency Medicine; PCP Family Medicine
DX: H83.02 Labyrinthitis, left ear (principal); R51.9 Headache, unspecified; R11.0 Nausea; R07.9 Chest pain, unspecified
CPT/HCPCS: 93005; 99281; 99283; J2405

== ENCOUNTER → 2021-01-03 17:07 | Outpatient (CLI) | payer BC, SELFPAY ==
--- NOTE | 2021-01-03 17:08 | DI.MRI.S_ITS ---
PROCEDURE: MR KNEE RT WO CON INDICATIONS: right knee injury, PT has been tried, not helping TECHNIQUE: Noncontrast sagittal PD fast spin echo and T2 fast spin echo with fat saturation, sagittal 3-D FLASH with fat saturation; coronal T1 spin echo and PD fast spin echo with fat saturation, and axial PD fast spin echo with fat saturation through the knee. COMPARISON: None. FINDINGS: Image quality: Excellent. Menisci: The medial and lateral menisci demonstrate normal morphology and internal signal. The meniscal root ligaments appear intact. Cruciate ligaments: The anterior and posterior cruciate ligaments appear intact. Medial structures: Mildly thickened MCL is seen suggestive of low-grade MCL sprain. The posterior oblique ligament, semimembranosus tendon insertions, oblique popliteal ligament, and meniscocapsular junction appear intact. Visualized portions of the pes anserinus tendons appear normal. No abnormal bursal fluid. Lateral structures: The lateral collateral ligament, long and short heads of the biceps femoris tendon appear intact. The popliteus tendon appears normal; the popliteofibular ligament appears intact. The posterosuperior and anteroinferior popliteomeniscal fascicles appear intact. The arcuate and fabellofibular ligaments appear intact, on either side of the lateral inferior geniculate artery. Iliotibial band appears normal. Anterior structures: The quadriceps and patellar tendons appear intact. Patellar alignment is normal. No femoral trochlear dysplasia or ventral trochlear prominence. No edema in the infrapatellar fat pad. Bones and cartilage: No bone marrow contusions or fractures. Mild joint space narrowing and low-grade chondromalacia in medial femoral tibial compartment is seen. Low-grade chondromalacia involving apex and medial facet of patella cartilage is also noted. Joint space: There is small amount of joint fluid. No Granger's cyst. Normal appearing synovial plicae are incidentally noted. IMPRESSION: 1. No evidence of focal meniscal tear. 2. Cruciate ligaments are intact. Low-grade MCL sprain. 3. Mild medial femoral tibial compartment joint space narrowing and low-grade chondromalacia. Low-grade chondromalacia patella as above. No fracture or dislocation. Small joint effusion. Dictated by: Alfonzo Taylor M.D. on 01/04/2021 at 9:15 Approved by: Alfonzo Taylor M.D. on 01/04/2021 at 9:18
== END ==
PROVIDERS: Family Provider Family Medicine; PCP Family Medicine; Referring Provider Family Medicine; Visit Provider Family Medicine
DX: S89.91XA Unspecified injury of right lower leg, initial encounter (principal); S83.411A Sprain of medial collateral ligament of right knee, initial encounter; M22.41 Chondromalacia patellae, right knee; M25.561 Pain in right knee; X58.XXXA Exposure to other specified factors, initial encounter
CPT/HCPCS: 73721

== ENCOUNTER 2021-01-10 09:00 | Outpatient (RCR) | payer BC, SELFPAY ==
--- NOTE | 2020-12-05 13:21 | PT.OIE ---
Current Diagnoses Sprain of medial collateral ligament of right knee, initial encounter (12/05/20) Past Medical History (Last Updated 11/16/20 @ 14:14 by Robert Ramirez DO) Asthma Cervical strain Fractures Kidney stones (~2013) Lumbar strain MCL sprain of right knee Seasonal allergies (~2015) Past Surgical History (Last Reviewed 08/12/20 @ 18:26 by Haydee Jimenes MD) H/O lithotripsy H/O: hysterectomy Visit Care Team Role Provider Type Robert Ramirez DO Attending Provider Physician Family Provider Primary Care Provider Referring Provider Specialty: Family Practice Address: [address] [place] [address] Email: [email or web address] Physical Therapy Initial Evaluation PT-OP-A Visit Information Start: 12/05/20 08:53 Freq: Status: Active Protocol: Document 12/05/20 09:01 (Rec: 12/05/20 13:21 [email or web address]) Out-Patient Physical Therapy Visit Information Visit Information Visit Type Initial Evaluation Visit Start Time 09:01 Visit Stop Time 09:45 Total Visit Minutes 44 Visit Number 12/03 Number of TEMPERATURE REGULATOR Visits 0 Evaluation Information Evaluation Date 12/05/20 PT-OP-B Current Condition Start: 12/05/20 08:53 Freq: Status: Active Protocol: Document 12/05/20 09:01 (Rec: 12/05/20 13:21 [email or web address]) Current Condition History of Current Condition Onset Date a month ago Current Complaints R medial knee pain, difficulty in walking and standing History of Current Condition Pt is a 40 yo healthy and active female here for her new onset of R medial knee pain started a month ago. Pt was riding her stationary bike at home and accidentally extended her R leg forcefully while riding it in a hill climb workout. Pt stated that it feels like stepping down into air when you miss a step sometimes. Pt felt a pull and popping sensation at the inner aspect of her R knee. She has been having pain 4/10 in standing and walking ever since. Bending her knees such as squat bothers her as well. 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 Pt currently is able to do some light exercise in the pool but too painful for exercising on the land. Her goal is to be able to participate a race with 3.5 miles running + 13 miles biking and 400 M swimming this May. Pt went to see Dr. Ramirez 11/16/20 and he stated Exam is consistent with a [id number] right MCL sprain with a potential meniscal injury Treatment Goals Patient/Caregiver Goals 1. Her goal is to be able to participate a race with 3.5 miles running + 13 miles biking and 400 M swimming this May. 2. To be able to stand, walk and squat without discomfort. Personal Factors Other Personal Factors That May Effect anxiety Therapy/Recovery PT-OP-C Subjective Start: 12/05/20 08:53 Freq: Status: Active Protocol: Document 12/05/20 09:01 (Rec: 12/05/20 13:21 [email or web address]) Patient Questionnaires Lower Extremity Functional Scale LEFS Score 34 LEFS Impairment 40 to 59% Impaired (Score 32- 47) OP-PT Pain Assessment Location R medial knee pain Pain Location Details MCL region and medial joint line Intensity 4 Scale Used Numeric (0 - 10) Description Aching,Dull,Pressure Frequency Constant Pain Aggravating Factors Activity,Exercise,Standing, Walking,Bending,Lifting Pain Alleviating Factors Cold,Inactivity PT-OP-D Balance Start: 12/05/20 08:53 Freq: Status: Active Protocol: Document 12/05/20 09:01 (Rec: 12/05/20 13:21 [email or web address]) Balance Tests Single Limb Standing Single Limb- Right 30s Single Limb- Left >60 Other Other Balance Tests Performed pt stands with R knee slightly flexed during balance test PT-OP-E Functional Tests Start: 12/05/20 08:53 Freq: Status: Active Protocol: Document 12/05/20 09:01 (Rec: 12/05/20 13:21 [email or web address]) Functional Tests Star Excursion Balance Test Score standing on R (with pain) fwd= 22inches lateral= 27 standing on L fwd= 28inches lateral= 28 Single Leg Squat Test Comment squat with RLE (with pain) = 23.5inches, squat with LLE = 20.5 inches PT-OP-F Manual Assessment Start: 12/05/20 08:53 Freq: Status: Active Protocol: Document 12/05/20 09:01 (Rec: 12/05/20 13:21 [email or web address]) Manual Assessments Soft Tissue Assessment Soft Tissue Mobility Assessment significant tenderness to pressure at medial joint line at R knee, and increased pain at MCL region PT-OP-G Mobility & Gait Start: 12/05/20 08:53 Freq: Status: Active Protocol: Document 12/05/20 09:01 (Rec: 12/05/20 13:21 [email or web address]) OP Gait Assessment Gait Deviations General Gait Pattern Antalgic,Decreased Stride Length,Decreased Feet Clearance Comments Gait Comments increased knee flexion on R during stance phase noted. dec push off PT-OP-J Posture/Palpation/Skin Start: 12/05/20 08:53 Freq: Status: Active Protocol: Document 12/05/20 09:01 (Rec: 12/05/20 13:21 [email or web address]) Posture Evaluation Position Standing Knee Posture (R) Ext. Tibial Torsion,(R) Excess Flexion PT-OP-K Range of Motion Start: 12/05/20 08:53 Freq: Status: Active Protocol: Document 12/05/20 09:01 (Rec: 12/05/20 13:21 [email or web address]) Knee Goniometric Range of Motion Knee Right Knee ROM WFL No Patient Position Supine Flexion Active (degrees) 125 Extension Active (degrees) 3 Comments medial knee pain during flexion and extension Left Knee ROM WFL Yes Patient Position Supine Flexion Active (degrees) 140 Extension Active (degrees) 0 PT-OP-L Special Tests Start: 12/05/20 08:53 Freq: Status: Active Protocol: Document 12/05/20 09:01 (Rec: 12/05/20 13:21 [email or web address]) Special Tests Knee Special Tests Kong's Test Results -ve Apley's Compression Test Results +ve R medial knee Comments pain noted Alise Test Test Results +ve R medial knee Comments pain noted Varus- 25 Degrees Test Results +ve R medial knee Comments pain noted no laxity noted Varus- 0 Degrees Test Results +ve R medial knee Comments pain notedm, no laxity noted Valgus- 25 Degrees Test Results +ve R medial knee Comments pain noted no laxity noted Valgus- 0 Degrees Test Results +ve R medial knee Comments pain noted no laxity noted PT-OP-M Strength Start: 12/05/20 08:53 Freq: Status: Active Protocol: Document 12/05/20 09:01 (Rec: 12/05/20 13:21 [email or web address]) Hip Strength Hip Manual Muscle Testing Right Flexion (L2) 4+ Good+ Extension (S1) 4+ Good+ Abduction 4+ Good+ Adduction 4+ Good+ Left Flexion (L2) 5 Normal Extension (S1) 5 Normal Abduction 5 Normal Adduction 5 Normal Knee Strength Knee Manual Muscle Testing Right Flexion (S2) 4- Good- Extension (L3) 4- Good- Comments significant medial knee pain noted from 90 - 3 degrees against resistance Left Flexion (S2) 5 Normal Extension (L3) 5 Normal Ankle/Foot Strength Ankle and Foot Manual Muscle Testing Right Dorsiflexion (L4) 5 Normal Plantarflexion (S1) 5 Normal Left Dorsiflexion (L4) 5 Normal Plantarflexion (S1) 5 Normal PT-OP-Q Treatments Start: 12/05/20 08:53 Freq: Status: Active Protocol: Document 12/05/20 09:01 (Rec: 12/05/20 13:21 [email or web address]) Manual Therapy Treatment Soft Tissue Mobilization medial joint line Mobilization Type Sustained Pressure,Trigger Point Release Intensity/Depth Superficial Body Position Hooklying Comments significant pain at MCL region and less sensitive at medial joint line. Improved discomfort after. PT-OP-T Assessment and Plan Start: 12/05/20 08:53 Freq: Status: Active Protocol: Document 12/05/20 09:01 (Rec: 12/05/20 13:21 [email or web address]) Physical Therapy Assessment Rehab Potential Rehabilitation Potential Excellent Evaluation Complexity Number of Personal Factors/Comorbidities 1-2 Number of Body Systems Impaired 1-2 Clinical Presentation at Evaluation Stable Impairments Impairments Activity Tolerance,Balance, Edema,Functional Activities, Functional Mobility,Gait,Pain, Posture,ROM,Sensation,Soft Tissue Mobility,Strength, Transfers Goals return to sports Impairment unable to participate triathlon training Short Term Goal (STG) pt will be able to return to biking and swimming 3 times / week with minimal discomfort STG Duration 5 weeks Aluminum Boat Inspector Goal (LTG) pt will be able to return to running, biking and swimming 4 -5 times at full effort per week without discomfort so she can continue her triathlon training for competition in May. LTG Duration 10 weeks ROM Impairment R knee flexion =125, extension =3 Aluminum Boat Inspector Goal (LTG) pt will regain full ROM at R knee ( flexion = 140 , extension =0) LTG Duration 6 weeks functional activities Impairment pain 4/10 for walking , standing and squating Aluminum Boat Inspector Goal (LTG) Pt will not have pain more than 2/10 during walking, standing and squating LTG Duration 10 weeks LEFS Impairment pt scores 34/80 on LEFS Short Term Goal (STG) pt will score >45 on LEFS to improve her overall quality of life STG Duration 5 weeks Aluminum Boat Inspector Goal (LTG) pt will score >60 on LEFS to improve her overall quality of life LTG Duration 10 weeks Assessment Summary Assessment Pt is an active and healthy 40 yo female here for her new onset of R medial knee pain since a month ago who injured herself while riding a stationary bike. Upon assessment, pt was very pain sensitive which makes accurate assessment difficult. However , pt shows signs of grade 1- 2 MCL strain with possible medial meniscal tear since she was positive for WB activities and Alise & Apley compression special tests. Pt did feel better with improved ROM and gait after manual therapy so this PT will cont monitor her progress. Pt will benefit from skilled therapy at this point to improve her ROM, single leg balance /stability and strength in order for her to fully return to her triathlon training for competition in May. Will consider recommending further imaging to rule out meniscal tear if pt unable to progress. Physical Therapy Plan Frequency and Duration Frequency of Treatment 2x/wkx4 then 1x/wkx4 Duration of Treatment 10 weeks Plan of Care Start Date 12/05/20 Plan of Care End Date 02/18/21 Therapeutic Interventions Therapeutic Interventions Aquatic Therapy,Balance Training,Coordination Training ,Gait Training,Home Exercise Program,Joint Mobilizations, Manual Therapy,Neuromuscular Re-education,Patient/Caregiver Education,Self-Care/Home Management,Soft Tissue Mobilization,Taping, Therapeutic Activities, Therapeutic Exercises Modalities Biofeedback,Cold Pack/Ice Massage,Electric Stimulation, Hot Packs,Infrared Therapy, Iontophoresis,Ultrasound Next Visit Focus/Plan Next Note Type Treatment Note Next Visit Plan STM on medial joint line and MCL tibial IR knee flexion and extension ROM bike LAQ and knee flexion leg press if needed.
--- NOTE | 2020-12-05 13:21 | PT.OPPOC ---
Physical, Occupational & Speech Therapy At [facility] Current Diagnoses Sprain of medial collateral ligament of right knee, initial encounter (12/05/20) Visit Care Team Role Provider Type Robert Ramirez DO Attending Provider Physician Family Provider Primary Care Provider Referring Provider Specialty: Family Practice Address: [address] [place] [address], [facility] Email: [email or web address] Of Care PT-OP-T Assessment and Plan Start: 12/05/20 08:53 Freq: Status: Active Protocol: Document 12/05/20 09:01 (Rec: 12/05/20 13:21 [email or web address]) Physical Therapy Assessment Rehab Potential Rehabilitation Potential Excellent Evaluation Complexity Number of Personal Factors/Comorbidities 1-2 Number of Body Systems Impaired 1-2 Clinical Presentation at Evaluation Stable Impairments Impairments Activity Tolerance,Balance, Edema,Functional Activities, Functional Mobility,Gait,Pain, Posture,ROM,Sensation,Soft Tissue Mobility,Strength, Transfers Goals return to sports Impairment unable to participate triathlon training Short Term Goal (STG) pt will be able to return to biking and swimming 3 times / week with minimal discomfort STG Duration 5 weeks [employer] Goal (LTG) pt will be able to return to running, biking and swimming 4 -5 times at full effort per week without discomfort so she can continue her triathlon training for competition in May. LTG Duration 10 weeks ROM Impairment R knee flexion =125, extension =3 Fdc Goal (LTG) pt will regain full ROM at R knee ( flexion = 140 , extension =0) LTG Duration 6 weeks functional activities Impairment pain 4/10 for walking , standing and squating [employer] Goal (LTG) Pt will not have pain more than 2/10 during walking, standing and squating LTG Duration 10 weeks LEFS Impairment pt scores 34/80 on LEFS Short Term Goal (STG) pt will score >45 on LEFS to improve her overall quality of life STG Duration 5 weeks Fdc Goal (LTG) pt will score >60 on LEFS to improve her overall quality of life LTG Duration 10 weeks Assessment Summary Assessment Pt is an active and healthy 40 yo female here for her new onset of R medial knee pain since a month ago who injured herself while riding a stationary bike. Upon assessment, pt was very pain sensitive which makes accurate assessment difficult. However , pt shows signs of grade 1- 2 MCL strain with possible medial meniscal tear since she was positive for WB activities and Alise & Apley compression special tests. Pt did feel better with improved ROM and gait after manual therapy so this PT will cont monitor her progress. Pt will benefit from skilled therapy at this point to improve her ROM, single leg balance /stability and strength in order for her to fully return to her triathlon training for competition in May. Will consider recommending further imaging to rule out meniscal tear if pt unable to progress. Physical Therapy Plan Frequency and Duration Frequency of Treatment 2x/wkx4 then 1x/wkx4 Duration of Treatment 10 weeks Plan of Care Start Date 12/05/20 Plan of Care End Date 02/18/21 Therapeutic Interventions Therapeutic Interventions Aquatic Therapy,Balance Training,Coordination Training ,Gait Training,Home Exercise Program,Joint Mobilizations, Manual Therapy,Neuromuscular Re-education,Patient/Caregiver Education,Self-Care/Home Management,Soft Tissue Mobilization,Taping, Therapeutic Activities, Therapeutic Exercises Modalities Biofeedback,Cold Pack/Ice Massage,Electric Stimulation, Hot Packs,Infrared Therapy, Iontophoresis,Ultrasound Next Visit Focus/Plan Next Note Type Treatment Note Next Visit Plan STM on medial joint line and MCL tibial IR knee flexion and extension ROM bike LAQ and knee flexion leg press if needed. Plan of Care Dates Plan of Care Start Date 12/05/20 Plan of Care End Date 02/18/21 Electronically Signed by: Darlene Guerrero PT 12/05/20 1321 Please Sign and Return: I have reviewed this Plan of Care and certify that the skilled therapy services above are required to meet the patient?s needs. Physician Signature Date Printed Name and Credentials Clinical Instructor Signature Printed Name and Credentials
--- NOTE | 2020-12-08 09:49 | PT.OTN ---
Current Diagnoses Sprain of medial collateral ligament of right knee, initial encounter (12/08/20) Physical Therapy Treatment Note PT-OP-A Visit Information Start: 12/05/20 08:53 Freq: Status: Active Protocol: Document 12/08/20 08:58 HH (Rec: 12/08/20 09:49 HH [id number]) Out-Patient Physical Therapy Visit Information Visit Information Visit Type Treatment Note Visit Start Time 09:02 Visit Stop Time 09:45 Total Visit Minutes 43 Visit Number Number of MERCERIZER Visits 0 PT-OP-B Current Condition Start: 12/05/20 08:53 Freq: Status: Active Protocol: Document 12/05/20 09:01 HH (Rec: 12/05/20 13:21 HH [email or web address]) Current Condition History of Current Condition Onset Date a month ago Current Complaints R medial knee pain, difficulty in walking and standing History of Current Condition Pt is a 40 yo healthy and active female here for her new onset of R medial knee pain started a month ago. Pt was riding her stationary bike at home and accidentally extended her R leg forcefully while riding it in a hill climb workout. Pt stated that it feels like stepping down into air when you miss a step sometimes. Pt felt a pull and popping sensation at the inner aspect of her R knee. She has been having pain 4/10 in standing and walking ever since. Bending her knees such as squat bothers her as well. 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 Pt currently is able to do some light exercise in the pool but too painful for exercising on the land. Her goal is to be able to participate a race with 3.5 miles running + 13 miles biking and 400 M swimming this May. Pt went to see Dr. Ramirez 11/16/20 and he stated Exam is consistent with a [id number] right MCL sprain with a potential meniscal injury Treatment Goals Patient/Caregiver Goals 1. Her goal is to be able to participate a race with 3.5 miles running + 13 miles biking and 400 M swimming this May. 2. To be able to stand, walk and squat without discomfort. Personal Factors Other Personal Factors That May Effect anxiety Therapy/Recovery PT-OP-C Subjective Start: 12/05/20 08:53 Freq: Status: Active Protocol: Document 12/08/20 08:58 (Rec: 12/08/20 09:49 [id number]) OP-PT Subjective Patient Comments Patient Comments I feel a little better on the treatment day but then i got sore yesterday and stiff. Patient Reported Progress Improving PT-OP-D Balance Start: 12/05/20 08:53 Freq: Status: Active Protocol: Document 12/05/20 09:01 (Rec: 12/05/20 13:21 [email or web address]) Balance Tests Single Limb Standing Single Limb- Right 30s Single Limb- Left >60 Other Other Balance Tests Performed pt stands with R knee slightly flexed during balance test PT-OP-E Functional Tests Start: 12/05/20 08:53 Freq: Status: Active Protocol: Document 12/05/20 09:01 (Rec: 12/05/20 13:21 [email or web address]) Functional Tests Star Excursion Balance Test Score standing on R (with pain) fwd= 22inches lateral= 27 standing on L fwd= 28inches lateral= 28 Single Leg Squat Test Comment squat with RLE (with pain) = 23.5inches, squat with LLE = 20.5 inches PT-OP-F Manual Assessment Start: 12/05/20 08:53 Freq: Status: Active Protocol: Document 12/05/20 09:01 (Rec: 12/05/20 13:21 [email or web address]) Manual Assessments Soft Tissue Assessment Soft Tissue Mobility Assessment significant tenderness to pressure at medial joint line at R knee, and increased pain at MCL region PT-OP-G Mobility & Gait Start: 12/05/20 08:53 Freq: Status: Active Protocol: Document 12/05/20 09:01 (Rec: 12/05/20 13:21 [email or web address]) OP Gait Assessment Gait Deviations General Gait Pattern Antalgic,Decreased Stride Length,Decreased Feet Clearance Comments Gait Comments increased knee flexion on R during stance phase noted. dec push off PT-OP-J Posture/Palpation/Skin Start: 12/05/20 08:53 Freq: Status: Active Protocol: Document 12/05/20 09:01 (Rec: 12/05/20 13:21 [email or web address]) Posture Evaluation Position Standing Knee Posture (R) Ext. Tibial Torsion,(R) Excess Flexion PT-OP-K Range of Motion Start: 12/05/20 08:53 Freq: Status: Active Protocol: Document 12/05/20 09:01 (Rec: 12/05/20 13:21 [email or web address]) Knee Goniometric Range of Motion Knee Right Knee ROM WFL No Patient Position Supine Flexion Active (degrees) 125 Extension Active (degrees) 3 Comments medial knee pain during flexion and extension Left Knee ROM WFL Yes Patient Position Supine Flexion Active (degrees) 140 Extension Active (degrees) 0 PT-OP-L Special Tests Start: 12/05/20 08:53 Freq: Status: Active Protocol: Document 12/05/20 09:01 (Rec: 12/05/20 13:21 [email or web address]) Special Tests Knee Special Tests Kong's Test Results -ve Apley's Compression Test Results +ve R medial knee Comments pain noted Alise Test Test Results +ve R medial knee Comments pain noted Varus- 25 Degrees Test Results +ve R medial knee Comments pain noted no laxity noted Varus- 0 Degrees Test Results +ve R medial knee Comments pain notedm, no laxity noted Valgus- 25 Degrees Test Results +ve R medial knee Comments pain noted no laxity noted Valgus- 0 Degrees Test Results +ve R medial knee Comments pain noted no laxity noted PT-OP-M Strength Start: 12/05/20 08:53 Freq: Status: Active Protocol: Document 12/05/20 09:01 (Rec: 12/05/20 13:21 [email or web address]) Hip Strength Hip Manual Muscle Testing Right Flexion (L2) 4+ Good+ Extension (S1) 4+ Good+ Abduction 4+ Good+ Adduction 4+ Good+ Left Flexion (L2) 5 Normal Extension (S1) 5 Normal Abduction 5 Normal Adduction 5 Normal Knee Strength Knee Manual Muscle Testing Right Flexion (S2) 4- Good- Extension (L3) 4- Good- Comments significant medial knee pain noted from 90 - 3 degrees against resistance Left Flexion (S2) 5 Normal Extension (L3) 5 Normal Ankle/Foot Strength Ankle and Foot Manual Muscle Testing Right Dorsiflexion (L4) 5 Normal Plantarflexion (S1) 5 Normal Left Dorsiflexion (L4) 5 Normal Plantarflexion (S1) 5 Normal PT-OP-Q Treatments Start: 12/05/20 08:53 Freq: Status: Active Protocol: Document 12/08/20 08:58 (Rec: 12/08/20 09:49 [id number]) Cardio Equipment Bicycle (Upright) Duration (Minutes) 4 Resistance 0 Seat Position 4 Other pt tends to ER R tibia, pain noted Therapeutic Exercises Supine Exercises SAQ Side right Reps/Minutes 3 sec hold x 8 Comments for HEP, difficulty engaging quad supine knee flexion Supine Exercise Name heel slide Side right Comments for HEP, pain at medial joint line quad set Side right Reps/Minutes 3 sec hold x10 Comments for HEP, pain at medial joint line Sitting Exercises knee flexion Sitting Exercise Name with skateboard Side left Comments for HEP, pain at medial joint line LAQ Side left Comments significant pain at medial joint line Manual Therapy Treatment Soft Tissue Mobilization medial joint line Mobilization Type Sustained Pressure,Trigger Point Release Intensity/Depth Superficial Body Position Hooklying Comments significant pain at MCL region and less sensitive at medial joint line. PT-OP-T Assessment and Plan Start: 12/05/20 08:53 Freq: Status: Active Protocol: Document 12/08/20 08:58 (Rec: 12/08/20 09:49 [id number]) Physical Therapy Assessment Goals return to sports Impairment unable to participate triathlon training Short Term Goal (STG) pt will be able to return to biking and swimming 3 times / week with minimal discomfort STG Duration 5 weeks Sheeter Helper Goal (LTG) pt will be able to return to running, biking and swimming 4 -5 times at full effort per week without discomfort so she can continue her triathlon training for competition in May. LTG Duration 10 weeks ROM Impairment R knee flexion =125, extension =3 Usp Goal (LTG) pt will regain full ROM at R knee ( flexion = 140 , extension =0) LTG Duration 6 weeks functional activities Impairment pain 4/10 for walking , standing and squating Usp Goal (LTG) Pt will not have pain more than 2/10 during walking, standing and squating LTG Duration 10 weeks LEFS Impairment pt scores 34/80 on LEFS Short Term Goal (STG) pt will score >45 on LEFS to improve her overall quality of life STG Duration 5 weeks Usp Goal (LTG) pt will score >60 on LEFS to improve her overall quality of life LTG Duration 10 weeks Assessment Summary Assessment pt has significant pain during knee ROM. Difficulty performning LAQ and knee flexion. She also has clicking during knee ROM ex which indicates possible meniscal tear. Added SAQ, quad set, knee flexion and biking today, Physical Therapy Plan Frequency and Duration Frequency of Treatment 2x/wkx4 then 1x/wkx4 Duration of Treatment 10 weeks Plan of Care Start Date 12/05/20 Plan of Care End Date 02/18/21 Next Visit Focus/Plan Next Note Type Treatment Note Next Visit Plan STM on medial joint line and MCL tibial IR knee flexion and extension ROM bike LAQ and knee flexion leg press if needed.
--- NOTE | 2020-12-12 09:16 | PT.OTN ---
Current Diagnoses Sprain of medial collateral ligament of right knee, initial encounter (12/12/20) Physical Therapy Treatment Note PT-OP-A Visit Information Start: 12/05/20 08:53 Freq: Status: Active Protocol: Document 12/12/20 08:10 HH (Rec: 12/12/20 09:16 [id number]) Out-Patient Physical Therapy Visit Information Visit Information Visit Type Treatment Note Visit Start Time 08:14 Visit Stop Time 09:05 Total Visit Minutes 51 Visit Number 01/31 Number of OPERATIONS ASST Visits 0 PT-OP-B Current Condition Start: 12/05/20 08:53 Freq: Status: Active Protocol: Document 12/05/20 09:01 HH (Rec: 12/05/20 13:21 [email or web address]) Current Condition History of Current Condition Onset Date a month ago Current Complaints R medial knee pain, difficulty in walking and standing History of Current Condition Pt is a 40 yo healthy and active female here for her new onset of R medial knee pain started a month ago. Pt was riding her stationary bike at home and accidentally extended her R leg forcefully while riding it in a hill climb workout. Pt stated that it feels like stepping down into air when you miss a step sometimes. Pt felt a pull and popping sensation at the inner aspect of her R knee. She has been having pain 4/10 in standing and walking ever since. Bending her knees such as squat bothers her as well. 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 Pt currently is able to do some light exercise in the pool but too painful for exercising on the land. Her goal is to be able to participate a race with 3.5 miles running + 13 miles biking and 400 M swimming this May. Pt went to see Dr. Ramirez 11/16/20 and he stated Exam is consistent with a [id number] right MCL sprain with a potential meniscal injury Treatment Goals Patient/Caregiver Goals 1. Her goal is to be able to participate a race with 3.5 miles running + 13 miles biking and 400 M swimming this May. 2. To be able to stand, walk and squat without discomfort. Personal Factors Other Personal Factors That May Effect anxiety Therapy/Recovery PT-OP-C Subjective Start: 12/05/20 08:53 Freq: Status: Active Protocol: Document 12/12/20 08:10 (Rec: 12/12/20 09:16 [id number]) OP-PT Subjective Patient Comments Patient Comments Sindy been doing my exercises couple times a day. Bending my knee is the hardest. But i am able to straighten a little better. I tend to get swelled up towards the end of the day. Patient Reported Progress Improving PT-OP-D Balance Start: 12/05/20 08:53 Freq: Status: Active Protocol: Document 12/05/20 09:01 (Rec: 12/05/20 13:21 [email or web address]) Balance Tests Single Limb Standing Single Limb- Right 30s Single Limb- Left >60 Other Other Balance Tests Performed pt stands with R knee slightly flexed during balance test PT-OP-E Functional Tests Start: 12/05/20 08:53 Freq: Status: Active Protocol: Document 12/05/20 09:01 (Rec: 12/05/20 13:21 [email or web address]) Functional Tests Star Excursion Balance Test Score standing on R (with pain) fwd= 22inches lateral= 27 standing on L fwd= 28inches lateral= 28 Single Leg Squat Test Comment squat with RLE (with pain) = 23.5inches, squat with LLE = 20.5 inches PT-OP-F Manual Assessment Start: 12/05/20 08:53 Freq: Status: Active Protocol: Document 12/05/20 09:01 (Rec: 12/05/20 13:21 [email or web address]) Manual Assessments Soft Tissue Assessment Soft Tissue Mobility Assessment significant tenderness to pressure at medial joint line at R knee, and increased pain at MCL region PT-OP-G Mobility & Gait Start: 12/05/20 08:53 Freq: Status: Active Protocol: Document 12/05/20 09:01 (Rec: 12/05/20 13:21 [email or web address]) OP Gait Assessment Gait Deviations General Gait Pattern Antalgic,Decreased Stride Length,Decreased Feet Clearance Comments Gait Comments increased knee flexion on R during stance phase noted. dec push off PT-OP-J Posture/Palpation/Skin Start: 12/05/20 08:53 Freq: Status: Active Protocol: Document 12/05/20 09:01 (Rec: 12/05/20 13:21 [email or web address]) Posture Evaluation Position Standing Knee Posture (R) Ext. Tibial Torsion,(R) Excess Flexion PT-OP-K Range of Motion Start: 12/05/20 08:53 Freq: Status: Active Protocol: Document 12/05/20 09:01 (Rec: 12/05/20 13:21 [email or web address]) Knee Goniometric Range of Motion Knee Right Knee ROM WFL No Patient Position Supine Flexion Active (degrees) 125 Extension Active (degrees) 3 Comments medial knee pain during flexion and extension Left Knee ROM WFL Yes Patient Position Supine Flexion Active (degrees) 140 Extension Active (degrees) 0 PT-OP-L Special Tests Start: 12/05/20 08:53 Freq: Status: Active Protocol: Document 12/05/20 09:01 (Rec: 12/05/20 13:21 [email or web address]) Special Tests Knee Special Tests Kong's Test Results -ve Apley's Compression Test Results +ve R medial knee Comments pain noted Alise Test Test Results +ve R medial knee Comments pain noted Varus- 25 Degrees Test Results +ve R medial knee Comments pain noted no laxity noted Varus- 0 Degrees Test Results +ve R medial knee Comments pain notedm, no laxity noted Valgus- 25 Degrees Test Results +ve R medial knee Comments pain noted no laxity noted Valgus- 0 Degrees Test Results +ve R medial knee Comments pain noted no laxity noted PT-OP-M Strength Start: 12/05/20 08:53 Freq: Status: Active Protocol: Document 12/05/20 09:01 (Rec: 12/05/20 13:21 [email or web address]) Hip Strength Hip Manual Muscle Testing Right Flexion (L2) 4+ Good+ Extension (S1) 4+ Good+ Abduction 4+ Good+ Adduction 4+ Good+ Left Flexion (L2) 5 Normal Extension (S1) 5 Normal Abduction 5 Normal Adduction 5 Normal Knee Strength Knee Manual Muscle Testing Right Flexion (S2) 4- Good- Extension (L3) 4- Good- Comments significant medial knee pain noted from 90 - 3 degrees against resistance Left Flexion (S2) 5 Normal Extension (L3) 5 Normal Ankle/Foot Strength Ankle and Foot Manual Muscle Testing Right Dorsiflexion (L4) 5 Normal Plantarflexion (S1) 5 Normal Left Dorsiflexion (L4) 5 Normal Plantarflexion (S1) 5 Normal PT-OP-Q Treatments Start: 12/05/20 08:53 Freq: Status: Active Protocol: Document 12/12/20 08:10 (Rec: 12/12/20 09:16 [email or web address]) Cardio Equipment Bicycle (Upright) Duration (Minutes) 6 Resistance 0 Seat Position 4 Other less pain noted. Therapeutic Exercises Supine Exercises SAQ Side right Reps/Minutes 3 sec hold x 8 Comments difficulty engaging quad supine knee flexion Supine Exercise Name heel slide Side right Comments pain at medial joint line quad set Side right Reps/Minutes 3 sec hold x10 Comments pain at medial joint line Prone Exercises hamstrings curl Side right Reps/Minutes 10 x2 Comments joint tightness at end range ~ 100 degrees Sitting Exercises knee flexion Sitting Exercise Name with skateboard, up to 100degrees Side right Comments pain at medial joint line, clicking at 55 degreee Manual Therapy Treatment Soft Tissue Mobilization medial quad Mobilization Type Sustained Pressure,Trigger Point Release Intensity/Depth Moderate Body Position Supine Comments noticed tightness at distal medial quad. medial joint line Mobilization Type Sustained Pressure,Trigger Point Release Intensity/Depth Superficial Body Position Hooklying Comments significant pain at MCL region and less sensitive at medial joint line. Joint Mobilizations patella Joint medial and lateral Grade III Body Position Supine Reps/Duration 4 mins PT-OP-T Assessment and Plan Start: 12/05/20 08:53 Freq: Status: Active Protocol: Document 12/12/20 08:10 (Rec: 12/12/20 09:16 [id number]) Physical Therapy Assessment Goals return to sports Impairment unable to participate triathlon training Short Term Goal (STG) pt will be able to return to biking and swimming 3 times / week with minimal discomfort STG Duration 5 weeks Snf Goal (LTG) pt will be able to return to running, biking and swimming 4 -5 times at full effort per week without discomfort so she can continue her triathlon training for competition in May. LTG Duration 10 weeks ROM Impairment R knee flexion =125, extension =3 Snf Goal (LTG) pt will regain full ROM at R knee ( flexion = 140 , extension =0) LTG Duration 6 weeks functional activities Impairment pain 4/10 for walking , standing and squating Scout Goal (LTG) Pt will not have pain more than 2/10 during walking, standing and squating LTG Duration 10 weeks LEFS Impairment pt scores 34/80 on LEFS Short Term Goal (STG) pt will score >45 on LEFS to improve her overall quality of life STG Duration 5 weeks Snf Goal (LTG) pt will score >60 on LEFS to improve her overall quality of life LTG Duration 10 weeks Assessment Summary Assessment Pt shows some improvements regarding quad engagement and knee extension today. She was able to bike with less discomfort. Cont POC with ROM in gravity eliminated positions Physical Therapy Plan Frequency and Duration Frequency of Treatment 2x/wkx4 then 1x/wkx4 Duration of Treatment 10 weeks Plan of Care Start Date 12/05/20 Plan of Care End Date 02/18/21 Next Visit Focus/Plan Next Note Type Treatment Note Next Visit Plan STM on medial joint line and MCL tibial IR knee flexion and extension ROM bike LAQ and knee flexion leg press if needed.
--- NOTE | 2020-12-16 13:00 | PT.OTN ---
Current Diagnoses Sprain of medial collateral ligament of right knee, initial encounter (12/16/20) Physical Therapy Treatment Note PT-OP-A Visit Information Start: 12/05/20 08:53 Freq: Status: Active Protocol: Document 12/16/20 12:01 MA (Rec: 12/16/20 12:58 MA [id number]) Out-Patient Physical Therapy Visit Information Visit Information Visit Type Treatment Note Visit Start Time 11:59 Visit Stop Time 12:44 Total Visit Minutes 45 Visit Number 03/03 Number of MOTORS AND CONTROLS TESTER Visits 1 PT-OP-B Current Condition Start: 12/05/20 08:53 Freq: Status: Active Protocol: Document 12/05/20 09:01 HH (Rec: 12/05/20 13:21 HH [email or web address]) Current Condition History of Current Condition Onset Date a month ago Current Complaints R medial knee pain, difficulty in walking and standing History of Current Condition Pt is a 40 yo healthy and active female here for her new onset of R medial knee pain started a month ago. Pt was riding her stationary bike at home and accidentally extended her R leg forcefully while riding it in a hill climb workout. Pt stated that it feels like stepping down into air when you miss a step sometimes. Pt felt a pull and popping sensation at the inner aspect of her R knee. She has been having pain 4/10 in standing and walking ever since. Bending her knees such as squat bothers her as well. 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 Pt currently is able to do some light exercise in the pool but too painful for exercising on the land. Her goal is to be able to participate a race with 3.5 miles running + 13 miles biking and 400 M swimming this May. Pt went to see Dr. Ramirez 11/16/20 and he stated Exam is consistent with a [id number] right MCL sprain with a potential meniscal injury Treatment Goals Patient/Caregiver Goals 1. Her goal is to be able to participate a race with 3.5 miles running + 13 miles biking and 400 M swimming this May. 2. To be able to stand, walk and squat without discomfort. Personal Factors Other Personal Factors That May Effect anxiety Therapy/Recovery PT-OP-C Subjective Start: 12/05/20 08:53 Freq: Status: Active Protocol: Document 12/16/20 12:01 MA (Rec: 12/16/20 12:58 MA [id number]) OP-PT Subjective Patient Comments Patient Comments My knee is more stiff and achy today and I couldn't sleep last night PT-OP-D Balance Start: 12/05/20 08:53 Freq: Status: Active Protocol: Document 12/05/20 09:01 (Rec: 12/05/20 13:21 [email or web address]) Balance Tests Single Limb Standing Single Limb- Right 30s Single Limb- Left >60 Other Other Balance Tests Performed pt stands with R knee slightly flexed during balance test PT-OP-E Functional Tests Start: 12/05/20 08:53 Freq: Status: Active Protocol: Document 12/05/20 09:01 (Rec: 12/05/20 13:21 [email or web address]) Functional Tests Star Excursion Balance Test Score standing on R (with pain) fwd= 22inches lateral= 27 standing on L fwd= 28inches lateral= 28 Single Leg Squat Test Comment squat with RLE (with pain) = 23.5inches, squat with LLE = 20.5 inches PT-OP-F Manual Assessment Start: 12/05/20 08:53 Freq: Status: Active Protocol: Document 12/05/20 09:01 (Rec: 12/05/20 13:21 [email or web address]) Manual Assessments Soft Tissue Assessment Soft Tissue Mobility Assessment significant tenderness to pressure at medial joint line at R knee, and increased pain at MCL region PT-OP-G Mobility & Gait Start: 12/05/20 08:53 Freq: Status: Active Protocol: Document 12/05/20 09:01 (Rec: 12/05/20 13:21 [email or web address]) OP Gait Assessment Gait Deviations General Gait Pattern Antalgic,Decreased Stride Length,Decreased Feet Clearance Comments Gait Comments increased knee flexion on R during stance phase noted. dec push off PT-OP-J Posture/Palpation/Skin Start: 12/05/20 08:53 Freq: Status: Active Protocol: Document 12/05/20 09:01 (Rec: 12/05/20 13:21 [email or web address]) Posture Evaluation Position Standing Knee Posture (R) Ext. Tibial Torsion,(R) Excess Flexion PT-OP-K Range of Motion Start: 12/05/20 08:53 Freq: Status: Active Protocol: Document 12/05/20 09:01 (Rec: 12/05/20 13:21 [email or web address]) Knee Goniometric Range of Motion Knee Right Knee ROM WFL No Patient Position Supine Flexion Active (degrees) 125 Extension Active (degrees) 3 Comments medial knee pain during flexion and extension Left Knee ROM WFL Yes Patient Position Supine Flexion Active (degrees) 140 Extension Active (degrees) 0 PT-OP-L Special Tests Start: 12/05/20 08:53 Freq: Status: Active Protocol: Document 12/05/20 09:01 (Rec: 12/05/20 13:21 [email or web address]) Special Tests Knee Special Tests Kong's Test Results -ve Apley's Compression Test Results +ve R medial knee Comments pain noted Alise Test Test Results +ve R medial knee Comments pain noted Varus- 25 Degrees Test Results +ve R medial knee Comments pain noted no laxity noted Varus- 0 Degrees Test Results +ve R medial knee Comments pain notedm, no laxity noted Valgus- 25 Degrees Test Results +ve R medial knee Comments pain noted no laxity noted Valgus- 0 Degrees Test Results +ve R medial knee Comments pain noted no laxity noted PT-OP-M Strength Start: 12/05/20 08:53 Freq: Status: Active Protocol: Document 12/05/20 09:01 (Rec: 12/05/20 13:21 [email or web address]) Hip Strength Hip Manual Muscle Testing Right Flexion (L2) 4+ Good+ Extension (S1) 4+ Good+ Abduction 4+ Good+ Adduction 4+ Good+ Left Flexion (L2) 5 Normal Extension (S1) 5 Normal Abduction 5 Normal Adduction 5 Normal Knee Strength Knee Manual Muscle Testing Right Flexion (S2) 4- Good- Extension (L3) 4- Good- Comments significant medial knee pain noted from 90 - 3 degrees against resistance Left Flexion (S2) 5 Normal Extension (L3) 5 Normal Ankle/Foot Strength Ankle and Foot Manual Muscle Testing Right Dorsiflexion (L4) 5 Normal Plantarflexion (S1) 5 Normal Left Dorsiflexion (L4) 5 Normal Plantarflexion (S1) 5 Normal PT-OP-Q Treatments Start: 12/05/20 08:53 Freq: Status: Active Protocol: Document 12/16/20 12:01 MA (Rec: 12/16/20 12:58 MA [id number]) Cardio Equipment Bicycle (Upright) Duration (Minutes) 6 Resistance 2 Seat Position 4 Other added resistance due to pt pushing too hard down Therapeutic Exercises Supine Exercises HS curl Supine Exercise Name HS curl with RLE up on theraball Equipment Used 55cm theraball Reps/Minutes 2x8 SAQ Side right Reps/Minutes 3 sec hold x 8 Comments difficulty engaging quad supine knee flexion Supine Exercise Name heel slide Side right Equipment Used scooter Comments pain at medial joint line quad set Side right Reps/Minutes 3 sec hold x10 Comments pain at medial joint line Prone Exercises hamstrings curl Side right Reps/Minutes x8 Comments d/c due to increase in pain to 8/10 Manual Therapy Treatment Soft Tissue Mobilization medial quad Mobilization Type Sustained Pressure,Trigger Point Release Intensity/Depth Moderate Body Position Supine Comments noticed tightness at distal medial quad. medial joint line Mobilization Type Sustained Pressure,Trigger Point Release Intensity/Depth Superficial Body Position Hooklying Comments significant pain at MCL region and less sensitive at medial joint line. Self-Care/Home Management Treatment Education Patient Education Pain Management Other Education Spoke with pt about taking it easy this weekend with workouts and icing due to her significant increase in pain today before next tx session on Saturday. PT-OP-R Modalities Start: 12/05/20 08:53 Freq: Status: Active Protocol: Document 12/16/20 12:58 MA (Rec: 12/16/20 13:00 MA [id number]) Hot Pack/Cold Pack Treatment Cold Pack Location R knee Patient Position Supine Treatment Duration (minutes) 10 Patient Tolerance Good Comments pillow long ways under RLE PT-OP-T Assessment and Plan Start: 12/05/20 08:53 Freq: Status: Active Protocol: Document 12/16/20 12:01 MA (Rec: 12/16/20 12:58 MA [id number]) Physical Therapy Assessment Goals return to sports Impairment unable to participate triathlon training Short Term Goal (STG) pt will be able to return to biking and swimming 3 times / week with minimal discomfort STG Duration 5 weeks Fpc Goal (LTG) pt will be able to return to running, biking and swimming 4 -5 times at full effort per week without discomfort so she can continue her triathlon training for competition in May. LTG Duration 10 weeks ROM Impairment R knee flexion =125, extension =3 Fpc Goal (LTG) pt will regain full ROM at R knee ( flexion = 140 , extension =0) LTG Duration 6 weeks functional activities Impairment pain 4/10 for walking , standing and squating Fpc Goal (LTG) Pt will not have pain more than 2/10 during walking, standing and squating LTG Duration 10 weeks LEFS Impairment pt scores 34/80 on LEFS Short Term Goal (STG) pt will score >45 on LEFS to improve her overall quality of life STG Duration 5 weeks Fpc Goal (LTG) pt will score >60 on LEFS to improve her overall quality of life LTG Duration 10 weeks Assessment Summary Assessment Pt arrives with significant knee pain, 05/13, today. She is unsure what she did differently yesterday but didn 't sleep well due to the pain. Pt was unable to do prone HS curls due to the pain but could tolerate HS curls supine with RLE up on theraball. Increased resistance on upright bike with improvement to pt's form and no increase in pain. Spoke with pt about taking it easy with workouts over the weekend and icing to reduce R knee swelling to see if pain decreases before next tx session on Saturday. Physical Therapy Plan Next Visit Focus/Plan Next Note Type Treatment Note Next Visit Plan STM on medial joint line and MCL tibial IR knee flexion and extension ROM bike LAQ and knee flexion leg press if needed.
--- NOTE | 2020-12-19 10:24 | PT.OTN ---
Current Diagnoses Sprain of medial collateral ligament of right knee, initial encounter (12/19/20) Physical Therapy Treatment Note PT-OP-A Visit Information Start: 12/05/20 08:53 Freq: Status: Active Protocol: Document 12/19/20 09:35 MA (Rec: 12/19/20 10:19 MA [id number]) Out-Patient Physical Therapy Visit Information Visit Information Visit Type Treatment Note Visit Start Time 09:32 Visit Stop Time 10:22 Total Visit Minutes 50 Visit Number 04/02 Number of PRESCRIPTION CLERK LENSES Visits 2 PT-OP-B Current Condition Start: 12/05/20 08:53 Freq: Status: Active Protocol: Document 12/05/20 09:01 HH (Rec: 12/05/20 13:21 HH [email or web address]) Current Condition History of Current Condition Onset Date a month ago Current Complaints R medial knee pain, difficulty in walking and standing History of Current Condition Pt is a 40 yo healthy and active female here for her new onset of R medial knee pain started a month ago. Pt was riding her stationary bike at home and accidentally extended her R leg forcefully while riding it in a hill climb workout. Pt stated that it feels like stepping down into air when you miss a step sometimes. Pt felt a pull and popping sensation at the inner aspect of her R knee. She has been having pain 4/10 in standing and walking ever since. Bending her knees such as squat bothers her as well. 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 Pt currently is able to do some light exercise in the pool but too painful for exercising on the land. Her goal is to be able to participate a race with 3.5 miles running + 13 miles biking and 400 M swimming this May. Pt went to see Dr. Ramirez 11/16/20 and he stated Exam is consistent with a [id number] right MCL sprain with a potential meniscal injury Treatment Goals Patient/Caregiver Goals 1. Her goal is to be able to participate a race with 3.5 miles running + 13 miles biking and 400 M swimming this May. 2. To be able to stand, walk and squat without discomfort. Personal Factors Other Personal Factors That May Effect anxiety Therapy/Recovery PT-OP-C Subjective Start: 12/05/20 08:53 Freq: Status: Active Protocol: Document 12/19/20 09:35 MA (Rec: 12/19/20 10:19 MA [id number]) OP-PT Subjective Patient Comments Patient Comments My knee is sore but doesn't hurt as much as it did last week PT-OP-D Balance Start: 12/05/20 08:53 Freq: Status: Active Protocol: Document 12/05/20 09:01 (Rec: 12/05/20 13:21 [email or web address]) Balance Tests Single Limb Standing Single Limb- Right 30s Single Limb- Left >60 Other Other Balance Tests Performed pt stands with R knee slightly flexed during balance test PT-OP-E Functional Tests Start: 12/05/20 08:53 Freq: Status: Active Protocol: Document 12/05/20 09:01 (Rec: 12/05/20 13:21 [email or web address]) Functional Tests Star Excursion Balance Test Score standing on R (with pain) fwd= 22inches lateral= 27 standing on L fwd= 28inches lateral= 28 Single Leg Squat Test Comment squat with RLE (with pain) = 23.5inches, squat with LLE = 20.5 inches PT-OP-F Manual Assessment Start: 12/05/20 08:53 Freq: Status: Active Protocol: Document 12/05/20 09:01 (Rec: 12/05/20 13:21 [email or web address]) Manual Assessments Soft Tissue Assessment Soft Tissue Mobility Assessment significant tenderness to pressure at medial joint line at R knee, and increased pain at MCL region PT-OP-G Mobility & Gait Start: 12/05/20 08:53 Freq: Status: Active Protocol: Document 12/05/20 09:01 (Rec: 12/05/20 13:21 [email or web address]) OP Gait Assessment Gait Deviations General Gait Pattern Antalgic,Decreased Stride Length,Decreased Feet Clearance Comments Gait Comments increased knee flexion on R during stance phase noted. dec push off PT-OP-J Posture/Palpation/Skin Start: 12/05/20 08:53 Freq: Status: Active Protocol: Document 12/05/20 09:01 (Rec: 12/05/20 13:21 [email or web address]) Posture Evaluation Position Standing Knee Posture (R) Ext. Tibial Torsion,(R) Excess Flexion PT-OP-K Range of Motion Start: 12/05/20 08:53 Freq: Status: Active Protocol: Document 12/05/20 09:01 (Rec: 12/05/20 13:21 [email or web address]) Knee Goniometric Range of Motion Knee Right Knee ROM WFL No Patient Position Supine Flexion Active (degrees) 125 Extension Active (degrees) 3 Comments medial knee pain during flexion and extension Left Knee ROM WFL Yes Patient Position Supine Flexion Active (degrees) 140 Extension Active (degrees) 0 PT-OP-L Special Tests Start: 12/05/20 08:53 Freq: Status: Active Protocol: Document 12/05/20 09:01 (Rec: 12/05/20 13:21 [email or web address]) Special Tests Knee Special Tests Kong's Test Results -ve Apley's Compression Test Results +ve R medial knee Comments pain noted Alise Test Test Results +ve R medial knee Comments pain noted Varus- 25 Degrees Test Results +ve R medial knee Comments pain noted no laxity noted Varus- 0 Degrees Test Results +ve R medial knee Comments pain notedm, no laxity noted Valgus- 25 Degrees Test Results +ve R medial knee Comments pain noted no laxity noted Valgus- 0 Degrees Test Results +ve R medial knee Comments pain noted no laxity noted PT-OP-M Strength Start: 12/05/20 08:53 Freq: Status: Active Protocol: Document 12/05/20 09:01 (Rec: 12/05/20 13:21 [email or web address]) Hip Strength Hip Manual Muscle Testing Right Flexion (L2) 4+ Good+ Extension (S1) 4+ Good+ Abduction 4+ Good+ Adduction 4+ Good+ Left Flexion (L2) 5 Normal Extension (S1) 5 Normal Abduction 5 Normal Adduction 5 Normal Knee Strength Knee Manual Muscle Testing Right Flexion (S2) 4- Good- Extension (L3) 4- Good- Comments significant medial knee pain noted from 90 - 3 degrees against resistance Left Flexion (S2) 5 Normal Extension (L3) 5 Normal Ankle/Foot Strength Ankle and Foot Manual Muscle Testing Right Dorsiflexion (L4) 5 Normal Plantarflexion (S1) 5 Normal Left Dorsiflexion (L4) 5 Normal Plantarflexion (S1) 5 Normal PT-OP-Q Treatments Start: 12/05/20 08:53 Freq: Status: Active Protocol: Document 12/19/20 09:35 MA (Rec: 12/19/20 10:19 MA [id number]) Cardio Equipment Bicycle (Upright) Duration (Minutes) 6 Resistance 2 Seat Position 4 Other d/c due to knee popping Therapeutic Exercises Supine Exercises HS curl Supine Exercise Name HS curl with RLE up on theraball Equipment Used 55cm theraball Reps/Minutes 2x8 SAQ Side right Reps/Minutes 3 sec hold x 8 Comments difficulty engaging quad, 6/10 pain supine knee flexion Supine Exercise Name heel slide Side right Comments pain at medial joint line quad set Side right Reps/Minutes 3 sec hold x10 Comments pain at medial joint line Manual Therapy Treatment Soft Tissue Mobilization medial quad Mobilization Type Sustained Pressure,Trigger Point Release Intensity/Depth Moderate Body Position Supine Comments noticed tightness at distal medial quad. medial joint line Mobilization Type Sustained Pressure,Trigger Point Release Intensity/Depth Superficial Body Position Hooklying Comments significant pain at MCL region and less sensitive at medial joint line. 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 PT-OP-R Modalities Start: 12/05/20 08:53 Freq: Status: Active Protocol: Document 12/19/20 10:19 MA (Rec: 12/19/20 10:20 MA [id number]) Hot Pack/Cold Pack Treatment Cold Pack Location R knee Patient Position Hooklying Treatment Duration (minutes) 10 Patient Tolerance Good Comments hooklying with legs propped up PT-OP-T Assessment and Plan Start: 12/05/20 08:53 Freq: Status: Active Protocol: Document 12/19/20 09:35 MA (Rec: 12/19/20 10:19 MA [id number]) Physical Therapy Assessment Goals return to sports Impairment unable to participate triathlon training Short Term Goal (STG) pt will be able to return to biking and swimming 3 times / week with minimal discomfort STG Duration 5 weeks Group Home Goal (LTG) pt will be able to return to running, biking and swimming 4 -5 times at full effort per week without discomfort so she can continue her triathlon training for competition in May. LTG Duration 10 weeks ROM Impairment R knee flexion =125, extension =3 Group Home Goal (LTG) pt will regain full ROM at R knee ( flexion = 140 , extension =0) LTG Duration 6 weeks functional activities Impairment pain 4/10 for walking , standing and squating Group Home Goal (LTG) Pt will not have pain more than 2/10 during walking, standing and squating LTG Duration 10 weeks LEFS Impairment pt scores 34/80 on LEFS Short Term Goal (STG) pt will score >45 on LEFS to improve her overall quality of life STG Duration 5 weeks Group Home Goal (LTG) pt will score >60 on LEFS to improve her overall quality of life LTG Duration 10 weeks Assessment Summary Assessment Pt continues to have medial knee pain 6/10 with movement today. Discontinued cardio biking after 4 minutes due to uncomfortable clicking in R knee. Pt did not have clicking feeling during any other ther ex. Pt has some swelling around medial jt line . Ended session with an ice pack Physical Therapy Plan Frequency and Duration Frequency of Treatment 2x/wkx4 then 1x/wkx4 Duration of Treatment 10 weeks Plan of Care Start Date 12/05/20 Plan of Care End Date 02/18/21 Therapeutic Interventions Therapeutic Interventions Aquatic Therapy,Balance Training,Coordination Training ,Gait Training,Home Exercise Program,Joint Mobilizations, Manual Therapy,Neuromuscular Re-education,Patient/Caregiver Education,Self-Care/Home Management,Soft Tissue Mobilization,Taping, Therapeutic Activities, Therapeutic Exercises Modalities Biofeedback,Cold Pack/Ice Massage,Electric Stimulation, Hot Packs,Infrared Therapy, Iontophoresis,Ultrasound Next Visit Focus/Plan Next Note Type Treatment Note Next Visit Plan STM on medial joint line and MCL tibial IR knee flexion and extension ROM bike LAQ and knee flexion leg press if needed.
--- NOTE | 2020-12-21 10:16 | PT.OTN ---
Current Diagnoses Sprain of medial collateral ligament of right knee, initial encounter (12/21/20) Physical Therapy Treatment Note PT-OP-A Visit Information Start: 12/05/20 08:53 Freq: Status: Active Protocol: Document 12/21/20 09:32 MA (Rec: 12/21/20 10:16 MA [id number]) Out-Patient Physical Therapy Visit Information Visit Information Visit Type Treatment Note Visit Start Time 09:30 Visit Stop Time 10:10 Total Visit Minutes 40 Visit Number 05/03 Number of TOPOGRAPHICAL SURVEYOR Visits 3 PT-OP-B Current Condition Start: 12/05/20 08:53 Freq: Status: Active Protocol: Document 12/05/20 09:01 HH (Rec: 12/05/20 13:21 HH [email or web address]) Current Condition History of Current Condition Onset Date a month ago Current Complaints R medial knee pain, difficulty in walking and standing History of Current Condition Pt is a 40 yo healthy and active female here for her new onset of R medial knee pain started a month ago. Pt was riding her stationary bike at home and accidentally extended her R leg forcefully while riding it in a hill climb workout. Pt stated that it feels like stepping down into air when you miss a step sometimes. Pt felt a pull and popping sensation at the inner aspect of her R knee. She has been having pain 4/10 in standing and walking ever since. Bending her knees such as squat bothers her as well. 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 Pt currently is able to do some light exercise in the pool but too painful for exercising on the land. Her goal is to be able to participate a race with 3.5 miles running + 13 miles biking and 400 M swimming this May. Pt went to see Dr. Ramirez 11/16/20 and he stated Exam is consistent with a [id number] right MCL sprain with a potential meniscal injury Treatment Goals Patient/Caregiver Goals 1. Her goal is to be able to participate a race with 3.5 miles running + 13 miles biking and 400 M swimming this May. 2. To be able to stand, walk and squat without discomfort. Personal Factors Other Personal Factors That May Effect anxiety Therapy/Recovery PT-OP-C Subjective Start: 12/05/20 08:53 Freq: Status: Active Protocol: Document 12/21/20 09:32 MA (Rec: 12/21/20 10:16 MA [id number]) OP-PT Subjective Patient Comments Patient Comments My knee feels stiff and the knot on the inside of my knee reminds me of when you get hit by a paint ball PT-OP-D Balance Start: 12/05/20 08:53 Freq: Status: Active Protocol: Document 12/05/20 09:01 (Rec: 12/05/20 13:21 [email or web address]) Balance Tests Single Limb Standing Single Limb- Right 30s Single Limb- Left >60 Other Other Balance Tests Performed pt stands with R knee slightly flexed during balance test PT-OP-E Functional Tests Start: 12/05/20 08:53 Freq: Status: Active Protocol: Document 12/05/20 09:01 (Rec: 12/05/20 13:21 [email or web address]) Functional Tests Star Excursion Balance Test Score standing on R (with pain) fwd= 22inches lateral= 27 standing on L fwd= 28inches lateral= 28 Single Leg Squat Test Comment squat with RLE (with pain) = 23.5inches, squat with LLE = 20.5 inches PT-OP-F Manual Assessment Start: 12/05/20 08:53 Freq: Status: Active Protocol: Document 12/05/20 09:01 (Rec: 12/05/20 13:21 [email or web address]) Manual Assessments Soft Tissue Assessment Soft Tissue Mobility Assessment significant tenderness to pressure at medial joint line at R knee, and increased pain at MCL region PT-OP-G Mobility & Gait Start: 12/05/20 08:53 Freq: Status: Active Protocol: Document 12/05/20 09:01 (Rec: 12/05/20 13:21 [email or web address]) OP Gait Assessment Gait Deviations General Gait Pattern Antalgic,Decreased Stride Length,Decreased Feet Clearance Comments Gait Comments increased knee flexion on R during stance phase noted. dec push off PT-OP-J Posture/Palpation/Skin Start: 12/05/20 08:53 Freq: Status: Active Protocol: Document 12/05/20 09:01 (Rec: 12/05/20 13:21 [email or web address]) Posture Evaluation Position Standing Knee Posture (R) Ext. Tibial Torsion,(R) Excess Flexion PT-OP-K Range of Motion Start: 12/05/20 08:53 Freq: Status: Active Protocol: Document 12/05/20 09:01 (Rec: 12/05/20 13:21 [email or web address]) Knee Goniometric Range of Motion Knee Right Knee ROM WFL No Patient Position Supine Flexion Active (degrees) 125 Extension Active (degrees) 3 Comments medial knee pain during flexion and extension Left Knee ROM WFL Yes Patient Position Supine Flexion Active (degrees) 140 Extension Active (degrees) 0 PT-OP-L Special Tests Start: 12/05/20 08:53 Freq: Status: Active Protocol: Document 12/05/20 09:01 (Rec: 12/05/20 13:21 [email or web address]) Special Tests Knee Special Tests Kong's Test Results -ve Apley's Compression Test Results +ve R medial knee Comments pain noted Alise Test Test Results +ve R medial knee Comments pain noted Varus- 25 Degrees Test Results +ve R medial knee Comments pain noted no laxity noted Varus- 0 Degrees Test Results +ve R medial knee Comments pain notedm, no laxity noted Valgus- 25 Degrees Test Results +ve R medial knee Comments pain noted no laxity noted Valgus- 0 Degrees Test Results +ve R medial knee Comments pain noted no laxity noted PT-OP-M Strength Start: 12/05/20 08:53 Freq: Status: Active Protocol: Document 12/05/20 09:01 (Rec: 12/05/20 13:21 [email or web address]) Hip Strength Hip Manual Muscle Testing Right Flexion (L2) 4+ Good+ Extension (S1) 4+ Good+ Abduction 4+ Good+ Adduction 4+ Good+ Left Flexion (L2) 5 Normal Extension (S1) 5 Normal Abduction 5 Normal Adduction 5 Normal Knee Strength Knee Manual Muscle Testing Right Flexion (S2) 4- Good- Extension (L3) 4- Good- Comments significant medial knee pain noted from 90 - 3 degrees against resistance Left Flexion (S2) 5 Normal Extension (L3) 5 Normal Ankle/Foot Strength Ankle and Foot Manual Muscle Testing Right Dorsiflexion (L4) 5 Normal Plantarflexion (S1) 5 Normal Left Dorsiflexion (L4) 5 Normal Plantarflexion (S1) 5 Normal PT-OP-Q Treatments Start: 12/05/20 08:53 Freq: Status: Active Protocol: Document 12/21/20 09:32 MA (Rec: 12/21/20 10:16 MA [id number]) Cardio Equipment Bicycle (Upright) Duration (Minutes) 3 Resistance 2 Seat Position 4 Other d/c due to knee popping Gym Equipment Shuttle Recovery squats Details bilateral Resistance 50# Shuttle Recovery Platform Stable Reps/Time 8x Therapeutic Exercises Supine Exercises SAQ Side right Reps/Minutes 3 sec hold x 8 supine knee flexion Supine Exercise Name heel slide Side right Comments pain at medial joint line quad set Side right Reps/Minutes 5 sec hold x10 Comments pain at medial jt line Manual Therapy Treatment Soft Tissue Mobilization medial quad Mobilization Type Sustained Pressure,Trigger Point Release Intensity/Depth Moderate Body Position Supine Comments noticed tightness at distal medial quad. medial joint line Mobilization Type Sustained Pressure,Trigger Point Release Intensity/Depth Superficial Body Position Hooklying Comments significant pain at MCL region and less sensitive at medial joint line. PT-OP-R Modalities Start: 12/05/20 08:53 Freq: Status: Active Protocol: Document 12/19/20 10:19 MA (Rec: 12/19/20 10:20 MA [id number]) Hot Pack/Cold Pack Treatment Cold Pack Location R knee Patient Position Hooklying Treatment Duration (minutes) 10 Patient Tolerance Good Comments hooklying with legs propped up PT-OP-T Assessment and Plan Start: 12/05/20 08:53 Freq: Status: Active Protocol: Document 12/21/20 09:32 MA (Rec: 12/21/20 10:16 MA [id number]) Physical Therapy Assessment Goals return to sports Impairment unable to participate triathlon training Short Term Goal (STG) pt will be able to return to biking and swimming 3 times / week with minimal discomfort STG Duration 5 weeks Residential Goal (LTG) pt will be able to return to running, biking and swimming 4 -5 times at full effort per week without discomfort so she can continue her triathlon training for competition in May. LTG Duration 10 weeks ROM Impairment R knee flexion =125, extension =3 Ironworker Apprentice Goal (LTG) pt will regain full ROM at R knee ( flexion = 140 , extension =0) LTG Duration 6 weeks functional activities Impairment pain 4/10 for walking , standing and squating Ironworker Apprentice Goal (LTG) Pt will not have pain more than 2/10 during walking, standing and squating LTG Duration 10 weeks LEFS Impairment pt scores 34/80 on LEFS Short Term Goal (STG) pt will score >45 on LEFS to improve her overall quality of life STG Duration 5 weeks Residential Goal (LTG) pt will score >60 on LEFS to improve her overall quality of life LTG Duration 10 weeks Assessment Summary Assessment Pt continues to having clicking when on exercise bike. Attempted supine squats on shuttle recovery with clicking continuing. Clicking is more bothersome than painful for pt. She is showing better quad engagement with quad sets and SAQ today.She continues to have 6/10 pain during exercises. Pt has less swelling medially than on Saturday, but did not have time to ice at end of session due to work schedule. Physical Therapy Plan Frequency and Duration Frequency of Treatment 2x/wkx4 then 1x/wkx4 Duration of Treatment 10 weeks Plan of Care Start Date 12/05/20 Plan of Care End Date 02/18/21 Therapeutic Interventions Therapeutic Interventions Aquatic Therapy,Balance Training,Coordination Training ,Gait Training,Home Exercise Program,Joint Mobilizations, Manual Therapy,Neuromuscular Re-education,Patient/Caregiver Education,Self-Care/Home Management,Soft Tissue Mobilization,Taping, Therapeutic Activities, Therapeutic Exercises Modalities Biofeedback,Cold Pack/Ice Massage,Electric Stimulation, Hot Packs,Infrared Therapy, Iontophoresis,Ultrasound Next Visit Focus/Plan Next Note Type Treatment Note Next Visit Plan Adjust leg press for less ROM STM on medial joint line and MCL tibial IR knee flexion and extension ROM bike LAQ and knee flexion
--- NOTE | 2020-12-26 10:14 | PT.OTN ---
Current Diagnoses Sprain of medial collateral ligament of right knee, initial encounter (12/26/20) Physical Therapy Treatment Note PT-OP-A Visit Information Start: 12/05/20 08:53 Freq: Status: Active Protocol: Document 12/26/20 09:34 MA (Rec: 12/26/20 10:14 MA [id number]) Out-Patient Physical Therapy Visit Information Visit Information Visit Type Treatment Note Visit Start Time 09:30 Visit Stop Time 10:18 Total Visit Minutes 48 Visit Number 06/02 Number of DRAW IN HAND Visits 4 PT-OP-B Current Condition Start: 12/05/20 08:53 Freq: Status: Active Protocol: Document 12/05/20 09:01 HH (Rec: 12/05/20 13:21 HH [email or web address]) Current Condition History of Current Condition Onset Date a month ago Current Complaints R medial knee pain, difficulty in walking and standing History of Current Condition Pt is a 40 yo healthy and active female here for her new onset of R medial knee pain started a month ago. Pt was riding her stationary bike at home and accidentally extended her R leg forcefully while riding it in a hill climb workout. Pt stated that it feels like stepping down into air when you miss a step sometimes. Pt felt a pull and popping sensation at the inner aspect of her R knee. She has been having pain 4/10 in standing and walking ever since. Bending her knees such as squat bothers her as well. 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 Pt currently is able to do some light exercise in the pool but too painful for exercising on the land. Her goal is to be able to participate a race with 3.5 miles running + 13 miles biking and 400 M swimming this May. Pt went to see Dr. Ramirez 11/16/20 and he stated Exam is consistent with a [id number] right MCL sprain with a potential meniscal injury Treatment Goals Patient/Caregiver Goals 1. Her goal is to be able to participate a race with 3.5 miles running + 13 miles biking and 400 M swimming this May. 2. To be able to stand, walk and squat without discomfort. Personal Factors Other Personal Factors That May Effect anxiety Therapy/Recovery PT-OP-C Subjective Start: 12/05/20 08:53 Freq: Status: Active Protocol: Document 12/26/20 09:34 MA (Rec: 12/26/20 10:14 MA [id number]) OP-PT Subjective Patient Comments Patient Comments My knee doesn't feel any worse, so that's good right? PT-OP-D Balance Start: 12/05/20 08:53 Freq: Status: Active Protocol: Document 12/05/20 09:01 (Rec: 12/05/20 13:21 [email or web address]) Balance Tests Single Limb Standing Single Limb- Right 30s Single Limb- Left >60 Other Other Balance Tests Performed pt stands with R knee slightly flexed during balance test PT-OP-E Functional Tests Start: 12/05/20 08:53 Freq: Status: Active Protocol: Document 12/05/20 09:01 (Rec: 12/05/20 13:21 [email or web address]) Functional Tests Star Excursion Balance Test Score standing on R (with pain) fwd= 22inches lateral= 27 standing on L fwd= 28inches lateral= 28 Single Leg Squat Test Comment squat with RLE (with pain) = 23.5inches, squat with LLE = 20.5 inches PT-OP-F Manual Assessment Start: 12/05/20 08:53 Freq: Status: Active Protocol: Document 12/05/20 09:01 (Rec: 12/05/20 13:21 [email or web address]) Manual Assessments Soft Tissue Assessment Soft Tissue Mobility Assessment significant tenderness to pressure at medial joint line at R knee, and increased pain at MCL region PT-OP-G Mobility & Gait Start: 12/05/20 08:53 Freq: Status: Active Protocol: Document 12/05/20 09:01 (Rec: 12/05/20 13:21 [email or web address]) OP Gait Assessment Gait Deviations General Gait Pattern Antalgic,Decreased Stride Length,Decreased Feet Clearance Comments Gait Comments increased knee flexion on R during stance phase noted. dec push off PT-OP-J Posture/Palpation/Skin Start: 12/05/20 08:53 Freq: Status: Active Protocol: Document 12/05/20 09:01 (Rec: 12/05/20 13:21 [email or web address]) Posture Evaluation Position Standing Knee Posture (R) Ext. Tibial Torsion,(R) Excess Flexion PT-OP-K Range of Motion Start: 12/05/20 08:53 Freq: Status: Active Protocol: Document 12/05/20 09:01 (Rec: 12/05/20 13:21 [email or web address]) Knee Goniometric Range of Motion Knee Right Knee ROM WFL No Patient Position Supine Flexion Active (degrees) 125 Extension Active (degrees) 3 Comments medial knee pain during flexion and extension Left Knee ROM WFL Yes Patient Position Supine Flexion Active (degrees) 140 Extension Active (degrees) 0 PT-OP-L Special Tests Start: 12/05/20 08:53 Freq: Status: Active Protocol: Document 12/05/20 09:01 (Rec: 12/05/20 13:21 [email or web address]) Special Tests Knee Special Tests Kong's Test Results -ve Apley's Compression Test Results +ve R medial knee Comments pain noted Alise Test Test Results +ve R medial knee Comments pain noted Varus- 25 Degrees Test Results +ve R medial knee Comments pain noted no laxity noted Varus- 0 Degrees Test Results +ve R medial knee Comments pain notedm, no laxity noted Valgus- 25 Degrees Test Results +ve R medial knee Comments pain noted no laxity noted Valgus- 0 Degrees Test Results +ve R medial knee Comments pain noted no laxity noted PT-OP-M Strength Start: 12/05/20 08:53 Freq: Status: Active Protocol: Document 12/05/20 09:01 (Rec: 12/05/20 13:21 [email or web address]) Hip Strength Hip Manual Muscle Testing Right Flexion (L2) 4+ Good+ Extension (S1) 4+ Good+ Abduction 4+ Good+ Adduction 4+ Good+ Left Flexion (L2) 5 Normal Extension (S1) 5 Normal Abduction 5 Normal Adduction 5 Normal Knee Strength Knee Manual Muscle Testing Right Flexion (S2) 4- Good- Extension (L3) 4- Good- Comments significant medial knee pain noted from 90 - 3 degrees against resistance Left Flexion (S2) 5 Normal Extension (L3) 5 Normal Ankle/Foot Strength Ankle and Foot Manual Muscle Testing Right Dorsiflexion (L4) 5 Normal Plantarflexion (S1) 5 Normal Left Dorsiflexion (L4) 5 Normal Plantarflexion (S1) 5 Normal PT-OP-Q Treatments Start: 12/05/20 08:53 Freq: Status: Active Protocol: Document 12/26/20 09:34 MA (Rec: 12/26/20 10:14 MA [id number]) Cardio Equipment Recumbent Bicycle Duration (Minutes) 6 Resistance 1 Seat Position 4 Therapeutic Exercises Supine Exercises HS curl Supine Exercise Name HS curl with RLE up on theraball Equipment Used 55cm theraball Reps/Minutes 2x8 Prone Exercises hamstrings curl Side right Reps/Minutes x10 Comments 0-90 degrees flexion Sitting Exercises knee flexion Sitting Exercise Name with towel under R foot Side right Reps/Minutes x10 Comments heel slides seated 0-100 degrees knee flexion LAQ Side right Reps/Minutes x10 Comments 6/10 pain Manual Therapy Treatment Soft Tissue Mobilization medial quad Mobilization Type Sustained Pressure,Trigger Point Release Intensity/Depth Moderate Body Position Supine Comments noticed tightness at distal medial quad. medial joint line Mobilization Type Sustained Pressure,Trigger Point Release Intensity/Depth Superficial Body Position Hooklying Comments significant pain at MCL region and less sensitive at medial joint line. PT-OP-R Modalities Start: 12/05/20 08:53 Freq: Status: Active Protocol: Document 12/26/20 09:34 MA (Rec: 12/26/20 10:14 MA [id number]) Hot Pack/Cold Pack Treatment Cold Pack Location R knee Patient Position Hooklying Treatment Duration (minutes) 10 Patient Tolerance Good Comments hooklying with legs propped up PT-OP-T Assessment and Plan Start: 12/05/20 08:53 Freq: Status: Active Protocol: Document 12/26/20 09:34 MA (Rec: 12/26/20 10:14 MA [id number]) Physical Therapy Assessment Goals return to sports Impairment unable to participate triathlon training Short Term Goal (STG) pt will be able to return to biking and swimming 3 times / week with minimal discomfort STG Duration 5 weeks Retail Maintenance Technician Goal (LTG) pt will be able to return to running, biking and swimming 4 -5 times at full effort per week without discomfort so she can continue her triathlon training for competition in May. LTG Duration 10 weeks ROM Impairment R knee flexion =125, extension =3 Retail Maintenance Technician Goal (LTG) pt will regain full ROM at R knee ( flexion = 140 , extension =0) LTG Duration 6 weeks functional activities Impairment pain 4/10 for walking , standing and squating Senior Care Goal (LTG) Pt will not have pain more than 2/10 during walking, standing and squating LTG Duration 10 weeks LEFS Impairment pt scores 34/80 on LEFS Short Term Goal (STG) pt will score >45 on LEFS to improve her overall quality of life STG Duration 5 weeks Retail Maintenance Technician Goal (LTG) pt will score >60 on LEFS to improve her overall quality of life LTG Duration 10 weeks Assessment Summary Assessment Pt has less pain today during most exercises but continues to feel some pain at medial jt line. Pt had less pain and clicking with recumbant bike than upright bike last week. Performed heel slides seated today with less pain than when supine. Pt continues to have minor swelling around R medial jt line- ended session with ice pack. Physical Therapy Plan Frequency and Duration Frequency of Treatment 2x/wkx4 then 1x/wkx4 Duration of Treatment 10 weeks Plan of Care Start Date 12/05/20 Plan of Care End Date 02/18/21 Therapeutic Interventions Therapeutic Interventions Aquatic Therapy,Balance Training,Coordination Training ,Gait Training,Home Exercise Program,Joint Mobilizations, Manual Therapy,Neuromuscular Re-education,Patient/Caregiver Education,Self-Care/Home Management,Soft Tissue Mobilization,Taping, Therapeutic Activities, Therapeutic Exercises Modalities Biofeedback,Cold Pack/Ice Massage,Electric Stimulation, Hot Packs,Infrared Therapy, Iontophoresis,Ultrasound Next Visit Focus/Plan Next Note Type Treatment Note Next Visit Plan Adjust leg press for less ROM STM on medial joint line and MCL tibial IR knee flexion and extension ROM recumbant bike LAQ and knee flexion
--- NOTE | 2020-12-29 09:53 | PT.OTN ---
Current Diagnoses Sprain of medial collateral ligament of right knee, initial encounter (12/29/20) Physical Therapy Treatment Note PT-OP-A Visit Information Start: 12/05/20 08:53 Freq: Status: Active Protocol: Document 12/29/20 09:06 (Rec: 12/29/20 09:53 [id number]) Out-Patient Physical Therapy Visit Information Visit Information Visit Type Progress Note Visit Start Time 09:04 Visit Stop Time 09:45 Total Visit Minutes 41 Visit Number 07/03 Number of LABORER SAWMILL Visits 0 PT-OP-B Current Condition Start: 12/05/20 08:53 Freq: Status: Active Protocol: Document 12/05/20 09:01 HH (Rec: 12/05/20 13:21 [email or web address]) Current Condition History of Current Condition Onset Date a month ago Current Complaints R medial knee pain, difficulty in walking and standing History of Current Condition Pt is a 40 yo healthy and active female here for her new onset of R medial knee pain started a month ago. Pt was riding her stationary bike at home and accidentally extended her R leg forcefully while riding it in a hill climb workout. Pt stated that it feels like stepping down into air when you miss a step sometimes. Pt felt a pull and popping sensation at the inner aspect of her R knee. She has been having pain 4/10 in standing and walking ever since. Bending her knees such as squat bothers her as well. 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 Pt currently is able to do some light exercise in the pool but too painful for exercising on the land. Her goal is to be able to participate a race with 3.5 miles running + 13 miles biking and 400 M swimming this May. Pt went to see Dr. Ramirez 11/16/20 and he stated Exam is consistent with a [id number] right MCL sprain with a potential meniscal injury Treatment Goals Patient/Caregiver Goals 1. Her goal is to be able to participate a race with 3.5 miles running + 13 miles biking and 400 M swimming this May. 2. To be able to stand, walk and squat without discomfort. Personal Factors Other Personal Factors That May Effect anxiety Therapy/Recovery PT-OP-C Subjective Start: 12/05/20 08:53 Freq: Status: Active Protocol: Document 12/29/20 09:06 (Rec: 12/29/20 09:53 [id number]) OP-PT Subjective Patient Comments Patient Comments My knee basically feels the same over the past month but it didnt get worse Patient Reported Progress Same PT-OP-D Balance Start: 12/05/20 08:53 Freq: Status: Active Protocol: Document 12/05/20 09:01 (Rec: 12/05/20 13:21 [email or web address]) Balance Tests Single Limb Standing Single Limb- Right 30s Single Limb- Left >60 Other Other Balance Tests Performed pt stands with R knee slightly flexed during balance test PT-OP-E Functional Tests Start: 12/05/20 08:53 Freq: Status: Active Protocol: Document 12/05/20 09:01 (Rec: 12/05/20 13:21 [email or web address]) Functional Tests Star Excursion Balance Test Score standing on R (with pain) fwd= 22inches lateral= 27 standing on L fwd= 28inches lateral= 28 Single Leg Squat Test Comment squat with RLE (with pain) = 23.5inches, squat with LLE = 20.5 inches PT-OP-F Manual Assessment Start: 12/05/20 08:53 Freq: Status: Active Protocol: Document 12/05/20 09:01 (Rec: 12/05/20 13:21 [email or web address]) Manual Assessments Soft Tissue Assessment Soft Tissue Mobility Assessment significant tenderness to pressure at medial joint line at R knee, and increased pain at MCL region PT-OP-G Mobility & Gait Start: 12/05/20 08:53 Freq: Status: Active Protocol: Document 12/05/20 09:01 (Rec: 12/05/20 13:21 [email or web address]) OP Gait Assessment Gait Deviations General Gait Pattern Antalgic,Decreased Stride Length,Decreased Feet Clearance Comments Gait Comments increased knee flexion on R during stance phase noted. dec push off PT-OP-J Posture/Palpation/Skin Start: 12/05/20 08:53 Freq: Status: Active Protocol: Document 12/05/20 09:01 (Rec: 12/05/20 13:21 [email or web address]) Posture Evaluation Position Standing Knee Posture (R) Ext. Tibial Torsion,(R) Excess Flexion PT-OP-K Range of Motion Start: 12/05/20 08:53 Freq: Status: Active Protocol: Document 12/05/20 09:01 (Rec: 12/05/20 13:21 [email or web address]) Knee Goniometric Range of Motion Knee Right Knee ROM WFL No Patient Position Supine Flexion Active (degrees) 125 Extension Active (degrees) 3 Comments medial knee pain during flexion and extension Left Knee ROM WFL Yes Patient Position Supine Flexion Active (degrees) 140 Extension Active (degrees) 0 PT-OP-L Special Tests Start: 12/05/20 08:53 Freq: Status: Active Protocol: Document 12/05/20 09:01 (Rec: 12/05/20 13:21 [email or web address]) Special Tests Knee Special Tests Kong's Test Results -ve Apley's Compression Test Results +ve R medial knee Comments pain noted Alise Test Test Results +ve R medial knee Comments pain noted Varus- 25 Degrees Test Results +ve R medial knee Comments pain noted no laxity noted Varus- 0 Degrees Test Results +ve R medial knee Comments pain notedm, no laxity noted Valgus- 25 Degrees Test Results +ve R medial knee Comments pain noted no laxity noted Valgus- 0 Degrees Test Results +ve R medial knee Comments pain noted no laxity noted PT-OP-M Strength Start: 12/05/20 08:53 Freq: Status: Active Protocol: Document 12/05/20 09:01 (Rec: 12/05/20 13:21 [email or web address]) Hip Strength Hip Manual Muscle Testing Right Flexion (L2) 4+ Good+ Extension (S1) 4+ Good+ Abduction 4+ Good+ Adduction 4+ Good+ Left Flexion (L2) 5 Normal Extension (S1) 5 Normal Abduction 5 Normal Adduction 5 Normal Knee Strength Knee Manual Muscle Testing Right Flexion (S2) 4- Good- Extension (L3) 4- Good- Comments significant medial knee pain noted from 90 - 3 degrees against resistance Left Flexion (S2) 5 Normal Extension (L3) 5 Normal Ankle/Foot Strength Ankle and Foot Manual Muscle Testing Right Dorsiflexion (L4) 5 Normal Plantarflexion (S1) 5 Normal Left Dorsiflexion (L4) 5 Normal Plantarflexion (S1) 5 Normal PT-OP-Q Treatments Start: 12/05/20 08:53 Freq: Status: Active Protocol: Document 12/29/20 09:06 (Rec: 12/29/20 09:53 [id number]) Cardio Equipment Recumbent Stepper (Sci-Fit) Duration (Minutes) 8 Resistance 1 Seat Position 10 Other no much discomfort Therapeutic Exercises Sitting Exercises knee flexion Sitting Exercise Name with skate board Side right Reps/Minutes x10 Comments heel slides seated 0-100 degrees knee flexion LAQ Side right Reps/Minutes x10 Manual Therapy Treatment Soft Tissue Mobilization medial quad Mobilization Type Sustained Pressure,Trigger Point Release Intensity/Depth Moderate Body Position Supine Comments noticed tightness at distal medial quad. medial joint line Mobilization Type Sustained Pressure,Trigger Point Release Intensity/Depth Superficial Body Position Hooklying Comments significant pain at MCL region and less sensitive at medial joint line. PT-OP-R Modalities Start: 12/05/20 08:53 Freq: Status: Active Protocol: Document 12/26/20 09:34 MA (Rec: 12/26/20 10:14 MA [id number]) Hot Pack/Cold Pack Treatment Cold Pack Location R knee Patient Position Hooklying Treatment Duration (minutes) 10 Patient Tolerance Good Comments hooklying with legs propped up PT-OP-T Assessment and Plan Start: 12/05/20 08:53 Freq: Status: Active Protocol: Document 12/29/20 09:06 (Rec: 12/29/20 09:53 [id number]) Physical Therapy Assessment Goals return to sports Impairment unable to participate triathlon training Short Term Goal (STG) pt will be able to return to biking and swimming 3 times / week with minimal discomfort STG Duration 5 weeks [employer] Weapons Sergeant Goal (LTG) pt will be able to return to running, biking and swimming 4 -5 times at full effort per week without discomfort so she can continue her triathlon training for competition in May. LTG Duration 10 weeks ROM Impairment R knee flexion =125, extension =3 [employer] Weapons Sergeant Goal (LTG) pt will regain full ROM at R knee ( flexion = 140 , extension =0) LTG Duration 6 weeks functional activities Impairment pain 4/10 for walking , standing and squating [employer] Sergeant Goal (LTG) Pt will not have pain more than 2/10 during walking, standing and squating LTG Duration 10 weeks LEFS Impairment pt scores 34/80 on LEFS Short Term Goal (STG) pt will score >45 on LEFS to improve her overall quality of life STG Duration 5 weeks Assisted Goal (LTG) pt will score >60 on LEFS to improve her overall quality of life LTG Duration 10 weeks Progress Towards Goals Progress Towards Goals Slow Progress - Other Assessment Summary Assessment Pt has been in rehab for almost 1 month but did not show significant progress with ROM and activity tolerance. Her R knee flexion= 125 same as IE. Pt cont to have difficulty in knee flexion , prolonged WB position, and cont stiffness throughout the day. In my professional opinion, i suspect pt has possible meniscal tear vs MCL strain. Recommended pt to consult with PCP to acquire MRI screening and further ortho consult. However, Pt will still benefit from skilled therapy to maintain her ROM, strength and overall mobility if pt had to go for surgery. Physical Therapy Plan Frequency and Duration Frequency of Treatment 2x/wkx4 then 1x/wkx4 Duration of Treatment 10 weeks Plan of Care Start Date 12/05/20 Plan of Care End Date 02/18/21 Next Visit Focus/Plan Next Note Type Treatment Note Next Visit Plan Adjust leg press for less ROM STM on medial joint line and MCL tibial IR knee flexion and extension ROM recumbant bike LAQ and knee flexion
--- NOTE | 2021-01-03 10:48 | PT.OTN ---
Current Diagnoses Sprain of medial collateral ligament of right knee, initial encounter (01/03/21) Physical Therapy Treatment Note PT-OP-A Visit Information Start: 12/05/20 08:53 Freq: Status: Active Protocol: Document 01/03/21 09:02 (Rec: 01/03/21 09:50 [id number]) Out-Patient Physical Therapy Visit Information Visit Information Visit Type Treatment Note Visit Start Time 09:04 Visit Stop Time 09:45 Total Visit Minutes 41 Visit Number 08/03 Number of AUTOMATIC CHIEF Visits 0 PT-OP-B Current Condition Start: 12/05/20 08:53 Freq: Status: Active Protocol: Document 12/05/20 09:01 HH (Rec: 12/05/20 13:21 [email or web address]) Current Condition History of Current Condition Onset Date a month ago Current Complaints R medial knee pain, difficulty in walking and standing History of Current Condition Pt is a 40 yo healthy and active female here for her new onset of R medial knee pain started a month ago. Pt was riding her stationary bike at home and accidentally extended her R leg forcefully while riding it in a hill climb workout. Pt stated that it feels like stepping down into air when you miss a step sometimes. Pt felt a pull and popping sensation at the inner aspect of her R knee. She has been having pain 4/10 in standing and walking ever since. Bending her knees such as squat bothers her as well. 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 Pt currently is able to do some light exercise in the pool but too painful for exercising on the land. Her goal is to be able to participate a race with 3.5 miles running + 13 miles biking and 400 M swimming this May. Pt went to see Dr. Ramirez 11/16/20 and he stated Exam is consistent with a [id number] right MCL sprain with a potential meniscal injury Treatment Goals Patient/Caregiver Goals 1. Her goal is to be able to participate a race with 3.5 miles running + 13 miles biking and 400 M swimming this May. 2. To be able to stand, walk and squat without discomfort. Personal Factors Other Personal Factors That May Effect anxiety Therapy/Recovery PT-OP-C Subjective Start: 12/05/20 08:53 Freq: Status: Active Protocol: Document 01/03/21 09:02 (Rec: 01/03/21 09:50 [id number]) OP-PT Subjective Patient Comments Patient Comments My knee got really swollen on saturday since i stood for a long time for the swimming. Patient Reported Progress Same PT-OP-D Balance Start: 12/05/20 08:53 Freq: Status: Active Protocol: Document 12/05/20 09:01 (Rec: 12/05/20 13:21 [email or web address]) Balance Tests Single Limb Standing Single Limb- Right 30s Single Limb- Left >60 Other Other Balance Tests Performed pt stands with R knee slightly flexed during balance test PT-OP-E Functional Tests Start: 12/05/20 08:53 Freq: Status: Active Protocol: Document 12/05/20 09:01 (Rec: 12/05/20 13:21 [email or web address]) Functional Tests Star Excursion Balance Test Score standing on R (with pain) fwd= 22inches lateral= 27 standing on L fwd= 28inches lateral= 28 Single Leg Squat Test Comment squat with RLE (with pain) = 23.5inches, squat with LLE = 20.5 inches PT-OP-F Manual Assessment Start: 12/05/20 08:53 Freq: Status: Active Protocol: Document 12/05/20 09:01 (Rec: 12/05/20 13:21 [email or web address]) Manual Assessments Soft Tissue Assessment Soft Tissue Mobility Assessment significant tenderness to pressure at medial joint line at R knee, and increased pain at MCL region PT-OP-G Mobility & Gait Start: 12/05/20 08:53 Freq: Status: Active Protocol: Document 12/05/20 09:01 (Rec: 12/05/20 13:21 [email or web address]) OP Gait Assessment Gait Deviations General Gait Pattern Antalgic,Decreased Stride Length,Decreased Feet Clearance Comments Gait Comments increased knee flexion on R during stance phase noted. dec push off PT-OP-J Posture/Palpation/Skin Start: 12/05/20 08:53 Freq: Status: Active Protocol: Document 12/05/20 09:01 (Rec: 12/05/20 13:21 [email or web address]) Posture Evaluation Position Standing Knee Posture (R) Ext. Tibial Torsion,(R) Excess Flexion PT-OP-K Range of Motion Start: 12/05/20 08:53 Freq: Status: Active Protocol: Document 12/05/20 09:01 (Rec: 12/05/20 13:21 [email or web address]) Knee Goniometric Range of Motion Knee Right Knee ROM WFL No Patient Position Supine Flexion Active (degrees) 125 Extension Active (degrees) 3 Comments medial knee pain during flexion and extension Left Knee ROM WFL Yes Patient Position Supine Flexion Active (degrees) 140 Extension Active (degrees) 0 PT-OP-L Special Tests Start: 12/05/20 08:53 Freq: Status: Active Protocol: Document 12/05/20 09:01 (Rec: 12/05/20 13:21 [email or web address]) Special Tests Knee Special Tests Kong's Test Results -ve Apley's Compression Test Results +ve R medial knee Comments pain noted Alise Test Test Results +ve R medial knee Comments pain noted Varus- 25 Degrees Test Results +ve R medial knee Comments pain noted no laxity noted Varus- 0 Degrees Test Results +ve R medial knee Comments pain notedm, no laxity noted Valgus- 25 Degrees Test Results +ve R medial knee Comments pain noted no laxity noted Valgus- 0 Degrees Test Results +ve R medial knee Comments pain noted no laxity noted PT-OP-M Strength Start: 12/05/20 08:53 Freq: Status: Active Protocol: Document 12/05/20 09:01 (Rec: 12/05/20 13:21 [email or web address]) Hip Strength Hip Manual Muscle Testing Right Flexion (L2) 4+ Good+ Extension (S1) 4+ Good+ Abduction 4+ Good+ Adduction 4+ Good+ Left Flexion (L2) 5 Normal Extension (S1) 5 Normal Abduction 5 Normal Adduction 5 Normal Knee Strength Knee Manual Muscle Testing Right Flexion (S2) 4- Good- Extension (L3) 4- Good- Comments significant medial knee pain noted from 90 - 3 degrees against resistance Left Flexion (S2) 5 Normal Extension (L3) 5 Normal Ankle/Foot Strength Ankle and Foot Manual Muscle Testing Right Dorsiflexion (L4) 5 Normal Plantarflexion (S1) 5 Normal Left Dorsiflexion (L4) 5 Normal Plantarflexion (S1) 5 Normal PT-OP-Q Treatments Start: 12/05/20 08:53 Freq: Status: Active Protocol: Document 01/03/21 09:02 HH (Rec: 01/03/21 09:50 HH [id number]) Cardio Equipment Recumbent Stepper (Sci-Fit) Duration (Minutes) 8 Resistance 1 Seat Position 10 Other no much discomfort Gym Equipment Shuttle Recovery squats Details unilateral, mini squat to TKE Resistance 25# Shuttle Recovery Platform Stable Reps/Time pain with full squat Therapeutic Exercises Sitting Exercises TKE Side bilateral Equipment Used level 1 Reps/Minutes 10 x2 knee flexion Sitting Exercise Name with skate board Side right Reps/Minutes x10 Comments heel slides seated 0-100 degrees knee flexion Manual Therapy Treatment Soft Tissue Mobilization medial quad Mobilization Type Sustained Pressure,Trigger Point Release Intensity/Depth Moderate Body Position Supine Comments noticed tightness at distal medial quad. medial joint line Mobilization Type Sustained Pressure,Trigger Point Release Intensity/Depth Superficial Body Position Hooklying Comments significant pain at MCL region , medial posterior jointline PT-OP-R Modalities Start: 12/05/20 08:53 Freq: Status: Active Protocol: Document 12/26/20 09:34 MA (Rec: 12/26/20 10:14 MA [id number]) Hot Pack/Cold Pack Treatment Cold Pack Location R knee Patient Position Hooklying Treatment Duration (minutes) 10 Patient Tolerance Good Comments hooklying with legs propped up PT-OP-T Assessment and Plan Start: 12/05/20 08:53 Freq: Status: Active Protocol: Document 01/03/21 09:02 HH (Rec: 01/03/21 09:50 [id number]) Physical Therapy Assessment Goals return to sports Impairment unable to participate triathlon training Short Term Goal (STG) pt will be able to return to biking and swimming 3 times / week with minimal discomfort STG Duration 5 weeks Business Development Executive Goal (LTG) pt will be able to return to running, biking and swimming 4 -5 times at full effort per week without discomfort so she can continue her triathlon training for competition in May. LTG Duration 10 weeks ROM Impairment R knee flexion =125, extension =3 Group Home Goal (LTG) pt will regain full ROM at R knee ( flexion = 140 , extension =0) LTG Duration 6 weeks functional activities Impairment pain 4/10 for walking , standing and squating Group Home Goal (LTG) Pt will not have pain more than 2/10 during walking, standing and squating LTG Duration 10 weeks LEFS Impairment pt scores 34/80 on LEFS Short Term Goal (STG) pt will score >45 on LEFS to improve her overall quality of life STG Duration 5 weeks Group Home Goal (LTG) pt will score >60 on LEFS to improve her overall quality of life LTG Duration 10 weeks Assessment Summary Assessment Pt has increased pain , tonicity at medial and medialposterior joint line with swelling. She did feel better after manual therapy. Also focused on close chain activities since pt has been c /o significant pain with open chain ROM ex. Pt alecia session well and she will have MRI screen and f/u with Dr. Ramirez tomorrow. Physical Therapy Plan Frequency and Duration Frequency of Treatment 2x/wkx4 then 1x/wkx4 Duration of Treatment 10 weeks Plan of Care Start Date 12/05/20 Plan of Care End Date 02/18/21 Next Visit Focus/Plan Next Note Type Treatment Note Next Visit Plan Adjust leg press for less ROM STM on medial joint line and MCL tibial IR knee flexion and extension ROM recumbant bike LAQ and knee flexion
--- NOTE | 2021-01-10 09:53 | PT.OTN ---
Current Diagnoses Sprain of medial collateral ligament of right knee, initial encounter (01/10/21) Physical Therapy Treatment Note PT-OP-A Visit Information Start: 12/05/20 08:53 Freq: Status: Active Protocol: Document 01/10/21 08:37 HH (Rec: 01/10/21 09:53 [id number]) Out-Patient Physical Therapy Visit Information Visit Information Visit Type Treatment Note Visit Note MRI on 01/04/21 1. No evidence of focal meniscal tear. 2. Cruciate ligaments are intact. Low-grade MCL sprain. 3. Mild medial femoral tibial compartment joint space narrowing and low-grade chondromalacia. Low-grade chondromalacia patella as above. No fracture or dislocation. Small joint effusion. Visit Start Time 09:02 Visit Stop Time 09:45 Total Visit Minutes 43 Visit Number 09/02 Number of MACHINIST LINOTYPE Visits 0 PT-OP-B Current Condition Start: 12/05/20 08:53 Freq: Status: Active Protocol: Document 12/05/20 09:01 HH (Rec: 12/05/20 13:21 [email or web address]) Current Condition History of Current Condition Onset Date a month ago Current Complaints R medial knee pain, difficulty in walking and standing History of Current Condition Pt is a 40 yo healthy and active female here for her new onset of R medial knee pain started a month ago. Pt was riding her stationary bike at home and accidentally extended her R leg forcefully while riding it in a hill climb workout. Pt stated that it feels like stepping down into air when you miss a step sometimes. Pt felt a pull and popping sensation at the inner aspect of her R knee. She has been having pain 4/10 in standing and walking ever since. Bending her knees such as squat bothers her as well. 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 Pt currently is able to do some light exercise in the pool but too painful for exercising on the land. Her goal is to be able to participate a race with 3.5 miles running + 13 miles biking and 400 M swimming this May. Pt went to see Dr. Ramirez 11/16/20 and he stated Exam is consistent with a 4hd-[id number] right MCL sprain with a potential meniscal injury Treatment Goals Patient/Caregiver Goals 1. Her goal is to be able to participate a race with 3.5 miles running + 13 miles biking and 400 M swimming this May. 2. To be able to stand, walk and squat without discomfort. Personal Factors Other Personal Factors That May Effect anxiety Therapy/Recovery PT-OP-C Subjective Start: 12/05/20 08:53 Freq: Status: Active Protocol: Document 01/10/21 08:37 (Rec: 01/10/21 09:53 [id number]) OP-PT Subjective Patient Comments Patient Comments My medial side doesnt really hurt anymore but more so at the anterior side. Patient Reported Progress Same PT-OP-D Balance Start: 12/05/20 08:53 Freq: Status: Active Protocol: Document 12/05/20 09:01 (Rec: 12/05/20 13:21 [email or web address]) Balance Tests Single Limb Standing Single Limb- Right 30s Single Limb- Left >60 Other Other Balance Tests Performed pt stands with R knee slightly flexed during balance test PT-OP-E Functional Tests Start: 12/05/20 08:53 Freq: Status: Active Protocol: Document 12/05/20 09:01 (Rec: 12/05/20 13:21 [email or web address]) Functional Tests Star Excursion Balance Test Score standing on R (with pain) fwd= 22inches lateral= 27 standing on L fwd= 28inches lateral= 28 Single Leg Squat Test Comment squat with RLE (with pain) = 23.5inches, squat with LLE = 20.5 inches PT-OP-F Manual Assessment Start: 12/05/20 08:53 Freq: Status: Active Protocol: Document 12/05/20 09:01 (Rec: 12/05/20 13:21 [email or web address]) Manual Assessments Soft Tissue Assessment Soft Tissue Mobility Assessment significant tenderness to pressure at medial joint line at R knee, and increased pain at MCL region PT-OP-G Mobility & Gait Start: 12/05/20 08:53 Freq: Status: Active Protocol: Document 12/05/20 09:01 (Rec: 12/05/20 13:21 [email or web address]) OP Gait Assessment Gait Deviations General Gait Pattern Antalgic,Decreased Stride Length,Decreased Feet Clearance Comments Gait Comments increased knee flexion on R during stance phase noted. dec push off PT-OP-J Posture/Palpation/Skin Start: 12/05/20 08:53 Freq: Status: Active Protocol: Document 12/05/20 09:01 (Rec: 12/05/20 13:21 [email or web address]) Posture Evaluation Position Standing Knee Posture (R) Ext. Tibial Torsion,(R) Excess Flexion PT-OP-K Range of Motion Start: 12/05/20 08:53 Freq: Status: Active Protocol: Document 12/05/20 09:01 (Rec: 12/05/20 13:21 [email or web address]) Knee Goniometric Range of Motion Knee Right Knee ROM WFL No Patient Position Supine Flexion Active (degrees) 125 Extension Active (degrees) 3 Comments medial knee pain during flexion and extension Left Knee ROM WFL Yes Patient Position Supine Flexion Active (degrees) 140 Extension Active (degrees) 0 PT-OP-L Special Tests Start: 12/05/20 08:53 Freq: Status: Active Protocol: Document 12/05/20 09:01 (Rec: 12/05/20 13:21 [email or web address]) Special Tests Knee Special Tests Kong's Test Results -ve Apley's Compression Test Results +ve R medial knee Comments pain noted Alise Test Test Results +ve R medial knee Comments pain noted Varus- 25 Degrees Test Results +ve R medial knee Comments pain noted no laxity noted Varus- 0 Degrees Test Results +ve R medial knee Comments pain notedm, no laxity noted Valgus- 25 Degrees Test Results +ve R medial knee Comments pain noted no laxity noted Valgus- 0 Degrees Test Results +ve R medial knee Comments pain noted no laxity noted PT-OP-M Strength Start: 12/05/20 08:53 Freq: Status: Active Protocol: Document 12/05/20 09:01 (Rec: 12/05/20 13:21 [email or web address]) Hip Strength Hip Manual Muscle Testing Right Flexion (L2) 4+ Good+ Extension (S1) 4+ Good+ Abduction 4+ Good+ Adduction 4+ Good+ Left Flexion (L2) 5 Normal Extension (S1) 5 Normal Abduction 5 Normal Adduction 5 Normal Knee Strength Knee Manual Muscle Testing Right Flexion (S2) 4- Good- Extension (L3) 4- Good- Comments significant medial knee pain noted from 90 - 3 degrees against resistance Left Flexion (S2) 5 Normal Extension (L3) 5 Normal Ankle/Foot Strength Ankle and Foot Manual Muscle Testing Right Dorsiflexion (L4) 5 Normal Plantarflexion (S1) 5 Normal Left Dorsiflexion (L4) 5 Normal Plantarflexion (S1) 5 Normal PT-OP-Q Treatments Start: 12/05/20 08:53 Freq: Status: Active Protocol: Document 01/10/21 08:37 (Rec: 01/10/21 09:53 [id number]) Cardio Equipment Bicycle (Upright) Duration (Minutes) 6 Resistance 3 Therapeutic Exercises Supine Exercises issa stretch Side right Reps/Minutes 15 sec x 5 Comments quad tightness noted. Sitting Exercises TKE Side bilateral Equipment Used level 1 Reps/Minutes 10 x2 knee flexion Sitting Exercise Name with skate board Side right Reps/Minutes x10 Comments heel slides seated 0-100 degrees knee flexion Manual Therapy Treatment Soft Tissue Mobilization medial quad Mobilization Type Sustained Pressure,Trigger Point Release Intensity/Depth Moderate Body Position Supine Comments noticed tightness at distal medial quad. medial joint line Mobilization Type Sustained Pressure,Trigger Point Release Intensity/Depth Superficial Body Position Hooklying Comments significant pain at patella tendon region , medial posterior jointline PT-OP-R Modalities Start: 12/05/20 08:53 Freq: Status: Active Protocol: Document 01/10/21 08:37 (Rec: 01/10/21 09:53 [id number]) Ultrasound Therapy Treatment R knee Treatment Duration (minutes) 3 Patient Position Supine Coupling Medium Ultrasound Gel Applicator Size (cm2) 5 Frequency Setting (mHz) 3 Mode Setting Pulsed Duty Cycle 50% Comments @ MCL and patella tendon region PT-OP-T Assessment and Plan Start: 12/05/20 08:53 Freq: Status: Active Protocol: Document 01/10/21 08:37 (Rec: 01/10/21 09:53 [id number]) Physical Therapy Assessment Goals return to sports Impairment unable to participate triathlon training Short Term Goal (STG) pt will be able to return to biking and swimming 3 times / week with minimal discomfort STG Duration 5 weeks Senior Living Goal (LTG) pt will be able to return to running, biking and swimming 4 -5 times at full effort per week without discomfort so she can continue her triathlon training for competition in May. LTG Duration 10 weeks ROM Impairment R knee flexion =125, extension =3 Housekeeping Attendant Goal (LTG) pt will regain full ROM at R knee ( flexion = 140 , extension =0) LTG Duration 6 weeks functional activities Impairment pain 4/10 for walking , standing and squating Housekeeping Attendant Goal (LTG) Pt will not have pain more than 2/10 during walking, standing and squating LTG Duration 10 weeks LEFS Impairment pt scores 34/80 on LEFS Short Term Goal (STG) pt will score >45 on LEFS to improve her overall quality of life STG Duration 5 weeks Senior Living Goal (LTG) pt will score >60 on LEFS to improve her overall quality of life LTG Duration 10 weeks Assessment Summary Assessment MRI shows pt does not have meniscus tear but MCL sprain. Pt is going to consult with Dr Heike Blankenship for second opinion. Started ultrasound tx today with non thremal setting for pain management and swelling control. Will reassess next visit. Physical Therapy Plan Frequency and Duration Frequency of Treatment 2x/wkx4 then 1x/wkx4 Duration of Treatment 10 weeks Plan of Care Start Date 12/05/20 Plan of Care End Date 02/18/21 Next Visit Focus/Plan Next Note Type Treatment Note Next Visit Plan reassess pt's response ultrasound/ E- stim for swelling pain management ROM as alecia
--- NOTE | 2021-06-29 13:00 | PT.OPDS ---
Current Diagnoses Sprain of medial collateral ligament of right knee, initial encounter (01/10/21) Visit Care Team Role Provider Type Robert Ramirez DO Attending Provider Physician Family Provider Primary Care Provider Referring Provider Specialty: Family Practice Address: [address] [place] [address], [facility] Email: [email or web address] Visit Number Visit Number 09/02 Discharge Summary PT-OP-T Assessment and Plan Start: 12/05/20 08:53 Freq: Status: Active Protocol: Document 06/29/21 12:59 HH (Rec: 06/29/21 13:00 HH [email or web address]) Physical Therapy Plan Discharge Physical Therapy Discharge Reasons No Longer Attending PT Discharge Comments Per EMR, pt has been seeing orthopedic and he believe it's maltracking of patella. pt is no longer attending PT at this point. DC from PT.
== END 2021-06-29 15:01 | disposition home or self-care (01) ==
LOC: PHYS 09:00
PROVIDERS: Family Provider Family Medicine; PCP Family Medicine; Referring Provider Family Medicine; Visit Provider Family Medicine
DX: S83.411A Sprain of medial collateral ligament of right knee, initial encounter (principal)
CPT/HCPCS: 97110; 97140; 97161

== ENCOUNTER → 2021-01-18 09:11 | Outpatient (CLI) | payer BC, SELFPAY ==
[2021-01-18] MEDS: COVID-19 VACC #1, MRNA(MOD) 100 MCG/0.5 ML VIAL IM (09:29)
== END ==
PROVIDERS: Family Provider Family Medicine; PCP Family Medicine; Visit Provider Internal Medicine
DX: Z23 Encounter for immunization (principal)
CPT/HCPCS: 0011A; 91301

== ENCOUNTER → 2021-02-15 08:46 | Outpatient (CLI) | payer BC, SELFPAY ==
[2021-02-15] MEDS: COVID-19 VACC #2, MRNA(MOD) 100 MCG/0.5 ML VIAL IM (09:00)
== END ==
PROVIDERS: Family Provider Family Medicine; PCP Family Medicine; Visit Provider Internal Medicine
DX: Z23 Encounter for immunization (principal)
CPT/HCPCS: 0012A; 91301

== ENCOUNTER 2021-04-21 14:25 | Emergency (ER) | payer BC, SELFPAY ==
[2021-04-21 14:37] VITALS: BP 161/108; PULSE 66; RESP 18; TEMP 36.9; O2SAT 98; BMI 29.0
--- NOTE | 2021-04-21 15:06 | ED.SKABFB ---
HPI - Skin/Abscess/Foreign Bdy General Chief complaint: Skin/Abscess/Foreign Body Stated complaint: hives/tounge numb/throat feels weird Time Seen by Provider: 04/21/21 14:58 Source: patient Mode of arrival: Family Vehicle Limitations: no limitations History of Present Illness HPI narrative: 40-year-old woman with history of mild asthma who recently had a sinus infection treated with clindamycin and a methylprednisolone burst pack. The final day of clindamycin was April 19 and she is feeling significantly improved. She comes in today complaining of a rash in her face and upper chest in a sun-exposed distribution. She notes that she went to high school graduation on April 19 and was sitting in direct sunlight for approximately 2 hours. She complains that it is burning and itchy and is concerned that it may be spreading. Related Data Home Medications Medication Instructions Recorded Confirmed cetirizine 10 mg tablet 10 mg PO DAILY 04/07/19 04/10/21 fluticasone propionate 50 2 spray NASAL DAILY 04/07/19 04/10/21 mcg/actuation nasal spray,suspension multivitamin 1 tab PO DAILY 05/20/19 04/10/21 Previous Rx's Medication Instructions Recorded zaleplon 5 mg capsule See Rx Instructions PO BEDTIME PRN 11/11/19 #45 cap cyclobenzaprine 10 mg tablet 10 mg PO BEDTIME #20 tab 07/13/20 naproxen 500 mg tablet 500 mg PO BID #30 tab 07/13/20 tramadol 50 mg tablet 50 mg PO TID PRN #30 tab 07/13/20 lidocaine 5 % topical patch 1 patch TOP DAILY #30 each 08/05/20 methocarbamol 500 mg tablet 500 mg PO TID #30 tab 08/05/20 naproxen 500 mg tablet 500 mg PO BID #60 tab 08/05/20 diazepam [Valium] 5 mg PO Q6H PRN #14 tab 10/05/20 ondansetron 4 mg PO Q4H PRN #14 tab 10/05/20 methylprednisolone 4 mg tablets in See Rx Instructions PO PER PKG DIR 10/10/20 a dose pack #21 ea meclizine 25 mg chewable tablet 25 mg PO Q6-8H PRN #30 tab 10/14/20 ketoconazole 2 % topical cream 1 applic TOPICAL BID #30 g 12/05/20 sertraline 100 mg tablet 100 mg PO DAILY #90 tab 04/07/21 prednisone 50 mg tablet 50 mg PO DAILY #5 tab 04/10/21 prednisone 20 mg PO DAILY #4 tab 04/21/21 Allergies Allergy/AdvReac Type Severity Reaction Status Date / Time Sulfa (Sulfonamide Allergy Severe Anaphylactic Verified 04/10/21 09:54 Antibiotics) shock Penicillins Allergy Intermediate Hives Verified 04/10/21 09:54 cefaclor [From Ceclor] Allergy Mild Hives Verified 04/10/21 09:54 Cefaclor Allergy Unknown Uncoded 04/10/21 09:54 Penicillin Allergy Unknown Uncoded 04/10/21 09:54 SULFA (sulfonamide) Allergy Unknown Uncoded 04/10/21 09:54 Review of Systems Review of Systems Narrative: Pertinent positive and negative findings as per HPI Remainder of review of systems is otherwise unremarkable for Constitutional: Fevers, chills, weakness ENT: No sore throat, neck pain, ear pain CV: Chest pain, palpitations, Respiratory: Cough, wheeze, dyspnea GI: Nausea, vomiting, diarrhea, : Dysuria, hematuria, Patient History Medical History Asthma Cervical strain Fractures Kidney stones (~2013) Lumbar strain MCL sprain of right knee Seasonal allergies (~2015) Tinea pedis Surgical History H/O lithotripsy H/O: hysterectomy Family History Father Hyperlipidemia Hypertension Grandfather Cancer Grandmother Cancer Grandfather Dementia Grandmother Dementia Social History Smoking Status: Never smoker second hand exposure: No alcohol intake: never substance use type: does not use Smoking Status: Never smoker alcohol intake frequency: 0-2 drinks per day Substance Use Type: does not use Exam Narrative Exam Narrative: General: Alert appropriate in no acute distress Respiratory: Able to speak in full sentences, no obvious respiratory distress Skin: erythema with pruritic papules in the distribution to the upper chest and to the left side of her face. no other skin involvement Neurologic: Grossly intact no obvious asymmetries or abnormalities Psych: appropriate insight and affect, cooperative Initial Vital Signs Initial Vital Signs: Vital Signs Temperature 98.5 F 04/21/21 14:37 Pulse Rate 66 04/21/21 14:37 Respiratory Rate 18 04/21/21 14:37 Blood Pressure 161/108 H 04/21/21 14:37 Pulse Oximetry 98 04/21/21 14:37 Course Orders Ordered: Discontinued Medications Prednisone (Prednisone 20 Mg Tablet) 60 mg PO NOW ONE Stop: 04/21/21 15:14 Last Admin: 04/21/21 15:18 Dose: 60 mg Documented by: Vital Signs Vital signs: Vital Signs - 8 hr 04/21/21 14:37 04/21/21 15:15 Temperature 98.5 F Pulse Rate 66 Respiratory Rate 18 Blood Pressure 161/108 H 168/91 H Pulse Oximetry 98 MDM - Skin/Abscess/Foreign Bdy MDM Narrative Medical decision making narrative: 40-year-old woman with the unfortunate exposure to 2 hours of direct son at the and of a course of clindamycin with a photosensitivity reaction developing over the right side of her face and her upper chest which with the areas of most sun exposure. No evidence of infection and no suggestion of zoster. Will treat her with 60 mg of oral prednisone and give her an additional 4 days of 20 mg of prednisone if needed for symptomatic control only. Reassurance is given. She is safe for home discharge Discharge Plan Departure Patient Disposition: Home Clinical Impression: Photosensitive contact dermatitis Instructions: DI for Adverse Drug Reaction -- Other Activity Restrictions/Additional Instructions: thank you for coming in today you are having of photosensitivity reaction. This is most likely due to clindamycin that was still in your system while you were exposed to the direct sunlight at graduation the other night. This will resolve by itself without any further intervention. I have given you a dose of 60 mg of prednisone in the emergency department to help it not itch and hopefully encourage the rash to resolve more quickly. If you continue to have symptoms over the next few days you can take 20 mg of prednisone daily. If this single dose in the emergency room has sufficiently cleared the rash by tomorrow you do not need to continue the steroids. This is not an actual allergy to clindamycin it is simply a side effect of clindamycin with sun exposure combined. I hope you heal quickly. Prescriptions: New prednisone 20 mg tablet 20 mg PO DAILY Qty: 4 RF: 0 No Action prednisone 50 mg tablet 50 mg PO DAILY Qty: 5 RF: 0 sertraline 100 mg tablet 100 mg PO DAILY Qty: 90 RF: 3 zaleplon 5 mg capsule See Rx Instructions PO BEDTIME PRN (Reason: difficulty staying asleep) Qty: 45 RF: 0 ketoconazole 2 % cream 1 applic topical BID Qty: 30 RF: 1 cetirizine [Zyrtec] 10 mg tablet 10 mg PO DAILY RF: 0 fluticasone propionate [Flonase Allergy Relief] 50 mcg/actuation spray,suspension 2 spray NASAL DAILY RF: 0 multivitamin tablet 1 tab PO DAILY RF: 0 cyclobenzaprine 10 mg tablet 10 mg PO BEDTIME Qty: 20 RF: 0 tramadol 50 mg tablet 50 mg PO TID PRN (Reason: pain) Qty: 30 RF: 0 naproxen 500 mg tablet 500 mg PO BID Qty: 30 RF: 0 lidocaine 5 % adhesive patch,medicated 1 patch TOP DAILY Qty: 30 RF: 0 methocarbamol 500 mg tablet 500 mg PO TID Qty: 30 RF: 1 naproxen 500 mg tablet 500 mg PO BID Qty: 60 RF: 1 methylprednisolone [Medrol (Lasha)] 4 mg tablets,dose pack See Rx Instructions PO PER PKG DIR Qty: 21 RF: 0 meclizine 25 mg tablet,chewable 25 mg PO Q6-8H PRN (Reason: dizziness) Qty: 30 RF: 1 diazepam [Valium] 5 mg tablet 5 mg PO Q6H PRN (Reason: dizziness) Qty: 14 RF: 0 ondansetron 4 mg tablet,disintegrating 4 mg PO Q4H PRN (Reason: nausea and vomiting) Qty: 14 RF: 0 Referrals: Robert Ramirez, [Primary Care Provider] -
[2021-04-21 15:15] VITALS: BP 168/91
[2021-04-21] MEDS: predniSONE 20 MG TABLET 60 MG PO (15:18)
[2021-04-21 15:21] VITALS: PULSE 67; RESP 16; O2SAT 98
== END 2021-04-21 15:26 | disposition home or self-care (01) ==
PROVIDERS: Emergency Provider Emergency Medicine; Family Provider Family Medicine; PCP Family Medicine
DX: L56.8 Other specified acute skin changes due to ultraviolet radiation (principal)
CPT/HCPCS: 99283

== ENCOUNTER → 2021-06-23 07:56 | Outpatient (CLI) | payer BC, SELFPAY ==
[2021-06-23 08:44] LABS: Add Manual Diff / Slide Review NO; Basophils Absolute Auto 100 /uL (0-100); Basophils Percent Auto 0.8 % (0-2); Eosinophils Absolute Auto 200 /uL (0-450); Eosinophils Percent Auto 2.9 % (2-4); Hematocrit 39.1 % (36-46); Lymphocytes Absolute Auto 2000 /uL (1100-4500); Lymphocytes Percent Auto 30.3 % (25-40); Mean Corpuscular HGB Conc 33.2 % (30-36); Mean Corpuscular Hemoglobin 27.9 PG (26-34); Monocytes Absolute Auto 500 /uL (0-900); Monocytes Percent Auto 7.4 % (3-14); Neutrophils Absolute Auto 3900 /uL (1500-7000); Neutrophils Percent Auto 58.6 % (50-75); Platelet Count 244 X10^3/uL (150-400); Red Blood Cell Count 4.66 X10^6/uL (4.0-5.2); Red Cell Distribution Width 13.8 % (11.6-14.8); White Blood Cell Count 6.7 X10^3/uL (4.5-11.0)
[2021-06-23 08:59] LABS: Alanine Aminotransferase 25 IU/L (<35); Albumin 4.2 g/dL (3.5-5.0); Albumin Globulin Ratio 1.3 (1.0-2.8); Alkaline Phosphatase 60 U/L (38-126); Aspartate Aminotransferase 30 IU/L (14-36); BUN Creatinine Ratio 16.1 (6-22); Bilirubin Total 0.6 mg/dL (0.2-1.3); Blood Urea Nitrogen 10 mg/dL (7-17); Carbon Dioxide 26 mmol/L (22-32); Chloride 104 mmol/L (98-107); Cholesterol 170 mg/dL (140-199); Estimated Glomerular Filt Rate > 60.0 mL/min (>60); Globulin 3.2 g/dL (1.7-4.1); Glucose 99 mg/dL (70-100); HDL Cholesterol 42 mg/dL (40-60); HEMOLYSIS < 15 (0-50); LDL Cholesterol Calculated 97 mg/dL (<100); Potassium 3.6 mmol/L (3.4-5.1); Sodium 138 mmol/L (137-145); Total Protein 7.4 g/dL (6.3-8.2); Triglycerides 153 mg/dL (35-150)
[2021-06-23 09:32] LABS: TSH w/ Reflex to FT4 1.28 uIU/mL (0.47-4.68)
== END ==
PROVIDERS: Family Provider Family Medicine; PCP Family Medicine; Referring Provider Family Medicine; Visit Provider Family Medicine
DX: Z00.00 Encounter for general adult medical examination without abnormal findings (principal)
CPT/HCPCS: 36415; 80053; 80061; 84443; 85025

== ENCOUNTER → 2021-09-13 14:52 | Outpatient (CLI) | payer BC, SELFPAY ==
--- NOTE | 2021-09-13 15:00 | DIET.PN1 ---
Dietary Progress Note Assessment: 40y [address] visit for help with IBS-d. Pt has had these issues whole life but worse past 5y, bloating and gas are big problems for her bm 6-7x/d, has fecal urgency after most meals, often getting up to use bathroom before meal is over feels she has to know where all bathrooms are in facility, sometimes food particles are in toilet Pt has been avoiding gluten for 4 days and ultraprocessed foods, sx better but not resolved. 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 can do certain cheeses, milk in cereal but not much otherwise for dairy Does better with smaller, more frequent meals, feels like she cannot tolerate fatty meats or eggs. Usual Day: 1c coffee per day c monkfruit sweetener and dairy free cream B: loves cereal (frosted flakes, fruit loops) c 2% milk but now banana keto smoothie with almond milk Sn: handful almonds L: tomato bisque c vegan biscuit Pt not picky when it comes to F/V but refuses to eat onion or onion powder as it causes GI distress RD Impression: Pt has rather severe but classic manifestation of IBS-d as far as foods which cause her symptoms. As we were going though common triggers, pt had many instances of validation. She knows she can eat up to 1/4 cup almonds but not more, some but not all dairy, small amounts of avocado, no blackberries, etc. Pt seems to be sensitive to many high FODMAP foods and categories plus some fatty proteins and eggs. Pt feeling empowered that her random symptoms and food issues actually follow a documented pattern. Pt will do 4w low FODMAP diet to find sx resolvement, at which point she will start reintroducing one food at a time while keeping food journal with goal of most varied diet possible with fewest sx possible. Pt likely will also need some medication management of IBS-d by GI doctor as pts sx and food triggers are on the severe side. Nutrition Diagnosis: frequent diarrhea and fecal urgency r/t intolerance to specific food fibers and sugars aeb pt reports lifetime of diarrhea, worsening over past 5y to 6-8 unformed bowl movements daily, needing to know where bathroom is at all times, pt intolerant to known high fodmap foods (gluten, dairy, onion, garlic, blackberries...). Interventions: 1. Provided education on IBS-d and low FODMAP diet using handouts. Educated on FODMAP categories and foods in each. 2. Educated pt on elimination diet and reintroduction protocol with step by step instructions. 3. Provided pt variety of shopping lists, meal planning templates, and recipes to support pt. Monitoring/Evaluations: f/u in 4w to assess progress and problem solve barriers. Electronically Signed by: Velia Ozuna 09/13/21 15:00 Clinical Dietitian [address] [address]
== END ==
PROVIDERS: Family Provider Family Medicine; PCP Family Medicine; Referring Provider Family Medicine; Visit Provider Family Medicine
DX: K58.0 Irritable bowel syndrome with diarrhea (principal); Z71.3 Dietary counseling and surveillance
CPT/HCPCS: 97802

== ENCOUNTER → 2021-10-11 10:56 | Outpatient (CLI) | payer BC, SELFPAY ==
--- NOTE | 2021-10-11 11:01 | DIET.PN1 ---
Dietary Progress Note 40y F attending 1mo RD f/u for help with IBS-d. Pt reports with much excitement that she has had normal, 1-2 formed BMs all this week where before would have 6-8 unformed stools per day. Pt had Thanksgiving with her extended family with no abd pain or loose stools. Pt has been following low-fodmap diet x4w and had great improvement in IBS sx one week into the diet. She has a cookbook and joined a few FB groups for support and recipe ideas. Pt reports many quality of life improvements including: not passing gas when she stands up, comfortably sharing office at work, not waking in night to have BM, pt states family plays jeopardy music when she is in restroom when they are all playing card games and family member remarked they won't have to do that this [place]. Pt also reports she has lost 8# in 4w. Pt waiting to reintroduce more food groups as she feels really good and would like to continue low sx until after holiday season before starting reintroduction. She does not feel limited by diet and is able to make most of her normal foods with modifications. Pt desires to continue weight loss with weight goal of 165# (-30#). Current Weight: 195# Height: 66 BMI 31.5 Nutrition Diagnosis: 1. Resolving: frequent diarrhea and fecal urgency r/t intolerance to specific food fibers and sugars aeb pt reports lifetime of diarrhea, worsening over past 5y to 6-8 unformed bowl movements daily, needing to know where bathroom is at all times, pt intolerant to known high fodmap foods (gluten, dairy, onion, garlic, blackberries...). 2. New: Obesity r/t undesirable food choices, meal spacing aeb BMI 31.5, pt at highest weight in adult life, pt unsure about appropriate portion sizes and food combining. Interventions: 1. Set pts calorie level to 1600/d to support 1-2# weight loss per week. 2. Collaborated c pt on meal planning and portion sizes as pt prefers not to count calories daily. Using meal plan template set pts breakfast and snacks then gave reccs for lunch and dinner as follows: L: 1/2c pasta/rice/potato c palm size protein and 1-2c non-starchy veg and D: 2/3c pasta/rice/potato, palm size protein, 1-2c nonstarchy veg Monitoring/Evaluation: f/u in 4w to assess progress and problem solve barriers. Electronically Signed by: Velia Ozuna 10/11/21 11:01 Clinical Dietitian [address] [id number]
[2021-10-11 11:32] VITALS: BMI 31.4
== END ==
PROVIDERS: Family Provider Family Medicine; PCP Family Medicine; Referring Provider Family Medicine; Visit Provider Family Medicine
DX: K58.0 Irritable bowel syndrome with diarrhea (principal); E66.9 Obesity, unspecified; Z68.31 Body mass index [BMI] 31.0-31.9, adult; Z71.3 Dietary counseling and surveillance
CPT/HCPCS: 97803

== ENCOUNTER → 2021-11-21 16:43 | Outpatient (CLI) | payer BC, SELFPAY ==
--- NOTE | 2021-11-21 16:44 | DI.RAD.S_ITS ---
PROCEDURE: XR LUMBAR SPINE 2-3V INDICATIONS: low back pain TECHNIQUE: 2 views of the lumbar spine were acquired. COMPARISON: Merged With [facility], , XR LUMBAR SPINE 2-3V, 08/05/2020, 9:51. FINDINGS: Bones: 5 [id number] vertebrae are present. There is normal bony alignment. Very mild degenerative endplate changes are seen at L4-5 and L5-S1 levels. No vertebral body compression fractures. No suspicious bony lesions. Soft tissues: Overlying bowel gas pattern is normal. No suspicious soft tissue calcifications. IMPRESSION: Very mild degenerative endplate changes at L4-5 and L5-S1 levels. No acute compression fracture or spondylolisthesis. Dictated by: Alfonzo Taylor M.D. on 11/21/2021 at 20:59 Approved by: Alfonzo Taylor M.D. on 11/21/2021 at 21:00
== END ==
PROVIDERS: Family Provider Family Medicine; PCP Family Medicine; Referring Provider Family Medicine; Visit Provider Family Medicine
DX: M54.50 Low back pain, unspecified (principal)
CPT/HCPCS: 72100

== ENCOUNTER → 2021-12-08 15:46 | Outpatient (CLI) | payer BC, SELFPAY ==
--- NOTE | 2021-12-08 15:47 | DI.MRI.S_ITS ---
PROCEDURE: MR LUMBAR SPINE WO CON INDICATIONS: lumbar pain TECHNIQUE: Noncontrast sagittal T1 spin echo and T2 fast echo, sagittal STIR, axial T1 and T2 fast spin echo through the lumbar spine. In cases with scoliosis, additional coronal T2 fast spin echo may be performed. COMPARISON: None. FINDINGS: Image quality: Excellent. Alignment and Curvature: There is normal bony alignment. Bone Marrow: Marrow is of normal overall signal. No acute vertebral body compression fractures. Spinal Cord: Conus medullaris terminates at the L1 level. Visualized cord demonstrates normal signal and size. Paraspinous Soft Tissues: No paravertebral masses. T12-L1: Normal appearance. L1-L2: Normal appearance. L2-L3: Normal appearance. L3-L4: Normal appearance. L4-L5: Normal appearance. L5-S1: Normal appearance. IMPRESSION: Unremarkable MRI of the lumbar spine. No central or foraminal stenosis. Approved by: Mahesh Silva M.D. on 12/08/2021 at 17:56
== END ==
PROVIDERS: Family Provider Family Medicine; PCP Family Medicine; Referring Provider Family Medicine; Visit Provider Family Medicine
DX: M54.16 Radiculopathy, lumbar region
CPT/HCPCS: 72148

== ENCOUNTER 2022-01-27 11:21 | Emergency (ER) | payer BC, SELFPAY ==
[2022-01-27] VITALS (12 sets, daily range): BP systolic 147–171; BP diastolic 78–97; PULSE 68–89; RESP 22; TEMP 36.7; O2SAT 93–99; BMI 30.7
[2022-01-27 12:35] LABS: Add Manual Diff / Slide Review NO; Basophils Absolute Auto 100 /uL (0-100); Basophils Percent Auto 0.7 % (0-2); Eosinophils Absolute Auto 200 /uL (0-450); Eosinophils Percent Auto 1.7 % (2-4); Hematocrit 39.6 % (36-46); Lymphocytes Absolute Auto 2400 /uL (1100-4500); Lymphocytes Percent Auto 18.9 % (25-40); Mean Corpuscular HGB Conc 32.9 % (30-36); Mean Corpuscular Hemoglobin 27.5 PG (26-34); Mean Corpuscular Volume 83.7 fL (80-100); Monocytes Absolute Auto 800 /uL (0-900); Monocytes Percent Auto 6.8 % (3-14); Neutrophils Absolute Auto 9000 /uL (1500-7000); Neutrophils Percent Auto 71.9 % (50-75); Platelet Count 272 X10^3/uL (150-400); Red Blood Cell Count 4.73 X10^6/uL (4.0-5.2); Red Cell Distribution Width 14.6 % (11.6-14.8); White Blood Cell Count 12.5 X10^3/uL (4.5-11.0)
[2022-01-27] MEDS: SODIUM CHLORIDE 0.9% 1,000 ML 1000 ML IV (12:38)
[2022-01-27] MEDS: PANTOPRAZOLE 40 MG VIAL IV (12:38)
[2022-01-27] MEDS: ONDANSETRON 4 MG/2 ML INJ IV (12:38)
[2022-01-27 12:41] LABS: Alanine Aminotransferase 29 IU/L (<35); Albumin 4.6 g/dL (3.5-5.0); Albumin Globulin Ratio 1.4 (1.0-2.8); Alkaline Phosphatase 65 U/L (38-126); Aspartate Aminotransferase 33 IU/L (14-36); Bilirubin Total 0.4 mg/dL (0.2-1.3); Blood Urea Nitrogen 13 mg/dL (7-17); Calcium 9.1 mg/dL (8.4-10.2); Carbon Dioxide 22 mmol/L (22-32); Chloride 107 mmol/L (98-107); Creatine Kinase 70 U/L (30-135); Estimated Glomerular Filt Rate > 60.0 mL/min (>60); Globulin 3.4 g/dL (1.7-4.1); Glucose 90 mg/dL (70-100); HEMOLYSIS 19 (0-50); Lipase 187 U/L (23-300); Potassium 3.7 mmol/L (3.4-5.1); Sodium 139 mmol/L (137-145)
[2022-01-27 12:53] LABS: Troponin I < 0.012 ng/mL (0.01-0.034)
--- NOTE | 2022-01-27 13:57 | DI.US.S_ITS ---
PROCEDURE: US ABDOMEN LIMITED INDICATIONS: epigastric/RUQ pain TECHNIQUE: Real-time focused scanning was performed of the abdomen, with image documentation. COMPARISON: None. FINDINGS: Gallbladder is normal. No gallstones. No gallbladder wall thickening, pericholecystic fluid or sonographic Paredes's sign.. Common bile duct is normal in caliber measuring 5.6 mm. There is diffusely increased hepatic echotexture consistent with fatty infiltration. There is focal fat sparing adjacent to the gallbladder fossa measuring 1.5 x 1.1 x 1.8 cm. Visualized pancreas is normal. IMPRESSION: 1. Normal gallbladder. No gallstones or ultrasound findings to suggest acute cholecystitis. 2. Diffusely increased hepatic echotexture. This finding is most likely secondary to hepatic fatty infiltration although other hepatocellular disease may have a similar appearance. Recommend clinical correlation. 3. A 1.5 x 1.1 x 1.8 cm hypo a choroid area adjacent to the gallbladder fossa is compatible with focal fat sparing. Dictated by: Pat Jewell M.D. on 01/27/2022 at 15:31 Approved by: Pat Jewell M.D. on 01/27/2022 at 15:33
--- NOTE | 2022-01-27 13:59 | ED_ITS ---
HPI - Abdominal Pain General Chief Complaint: Abdominal Pain Stated Complaint: Severe chest/back/abd pain, vomiting, diarrhea Time Seen by Provider: 01/27/22 13:42 Source: patient Mode of arrival: Family Vehicle History of Present Illness HPI narrative: the patient presents with severe epigastric pain, onset this morning. There is slight discomfort radiating to the back. Pain radiates the right upper quadrant. Pain was onset before breakfast. She has no obvious chest pain, no dyspnea. She has a prior history of similar discomfort, never this severe. She has no history of GERD, PUD, or gastritis. She has no dietary intolerance, she has no history of gallbladder disease. She has no URI symptoms, no fever chills, no cough or dyspnea. She has history of hysterectomy and a history of kidney stones. She has previously undergone lithotripsy. she currently has no dysuria or hematuria.. Related Data Home Medications Medication Instructions Recorded Confirmed cetirizine 10 mg tablet (Zyrtec) 10 mg PO DAILY 04/07/19 08/28/21 fluticasone propionate 50 2 spray NASAL DAILY 04/07/19 08/28/21 mcg/actuation nasal spray,suspension (Flonase Allergy Relief) multivitamin 1 tab PO DAILY 05/20/19 08/28/21 Previous Rx's Medication Instructions Recorded zaleplon 5 mg capsule See Rx Instructions PO BEDTIME PRN 11/11/19 #45 cap naproxen 500 mg tablet 500 mg PO BID #60 tab 08/05/20 sertraline 100 mg tablet 100 mg PO DAILY #90 tab 04/07/21 cyclobenzaprine 10 mg tablet 10 mg PO BEDTIME #20 tab 11/21/21 prednisone 50 mg tablet 50 mg PO DAILY #5 tab 11/21/21 tramadol 50 mg tablet 50 mg PO Q8H PRN #30 tab 11/21/21 hydrocodone 5 mg-acetaminophen 325 1 tab PO TID PRN #30 tab 11/24/21 mg tablet omeprazole 20 mg capsule,delayed 40 mg PO DAILY #120 cap 01/27/22 release Allergies Allergy/AdvReac Type Severity Reaction Status Date / Time Sulfa (Sulfonamide Allergy Severe Anaphylactic Verified 01/27/22 11:37 Antibiotics) shock Penicillins Allergy Intermediate Hives Verified 01/27/22 11:37 cefaclor [From [facility]] Allergy Mild Hives Verified 01/27/22 11:37 Cefaclor Allergy Unknown Uncoded 01/27/22 11:37 Penicillin Allergy Unknown Uncoded 01/27/22 11:37 SULFA (sulfonamide) Allergy Unknown Uncoded 01/27/22 11:37 Review of Systems Constitutional Constitutional: Denies body ache(s), Denies chills, Denies fatigue, Denies fever(s) and Denies headache(s) ENT Ears, Nose, Mouth, and Throat: Denies vertigo, Denies dizziness, Denies headache(s), Denies sinus pain and Denies sore throat Cardiovascular Cardiovascular: Denies chest pain, Denies rapid heart rate, Denies pedal edema, Denies leg edema and Denies dyspnea Respiratory Respiratory: Denies chest congestion, Denies cough and Denies dyspnea Gastrointestinal Gastrointestinal: Reports as per HPI Genitourinary Genitourinary: Denies dysuria and Reports other (No hematuria) Musculoskeletal Musculoskeletal: Denies back pain and Denies arthralgias Integumentary/Breasts Skin/Breast: Denies lesions and Denies rash Neurologic Neurologic: Denies confusion, Denies vertigo, Denies dizziness and Denies headache(s) Psychiatric Psychiatric: Denies confusion Endocrine Endocrine: Denies fatigue Hematologic/Lymphatic On Anticoagulants: No Patient History Medical History Asthma Basal cell carcinoma Cervical strain Fractures Irritable bowel syndrome with diarrhea Kidney stones (~2013) Lumbar strain MCL sprain of right knee Pharyngeal lesion Preventative health care Seasonal allergies (~2015) Skin lesion Tinea pedis Well adult exam Surgical History H/O lithotripsy H/O: hysterectomy Family History Father Hyperlipidemia Hypertension Grandfather Cancer Grandmother Cancer Grandfather Dementia Grandmother Dementia Social History Smoking Status: Never smoker second hand exposure: No alcohol intake: never substance use type: does not use Smoking Status: Never smoker alcohol intake frequency: 0-2 drinks per day Substance Use Type: does not use Exam Initial Vital Signs Initial Vital Signs: Vital Signs Temperature 98.1 F 01/27/22 11:34 Pulse Rate 73 01/27/22 11:34 Respiratory Rate 22 01/27/22 11:34 Blood Pressure 171/97 H 01/27/22 11:34 Pulse Oximetry 98 01/27/22 11:34 Const General: cooperative, healthy appearing, comfortable, well developed and well groomed [facility] Head: normal to inspection, normocephalic and atraumatic Eyes General: appearance normal, both eyes and all related structures Pupils: PERRL EOM: EOM intact bilaterally Neck Neck: normal visual inspection and No JVD Chest Chest: normal inspection of the chest Resp Effort & Inspection: normal respiratory effort Auscultation: clear to auscultation bilaterally Cardio Rate: regular rate Rhythm: regular rhythm and abnormal rhythm Heart Sounds: S1 normal and S2 normal GI Inspection: normal to inspection Palpation: soft and tender (Epigastric tenderness. No distension. No guarding rebound.) Back/Spine/Pelvis Back: normal to inspection and No CVA tenderness Course Course Course Narrative: The patient likely has GERD. Protonix was given work. Daughter is give her pain. There is no evidence of gallbladder disease, she does have fatty infiltration of the liver. She is discharged on Prilosec, with advice to fo llow-up with PCM. She is given discharge instructions for GERD. Orders Ordered: ED Orders 01/27/22 12:24 Complete Blood Count AUTO DIFF Stat Comprehensive Metabolic Panel Stat Lipase Stat Troponin & CK Cardiac Panel Stat 01/27/22 13:57 US abdomen limited Stat 01/27/22 14:10 urine tox [Urine Drug Screen, Rapid] Stat Discontinued Medications Hydromorphone HCl (Hydromorphone 1 Mg Inj) 1 mg IV NOW ONE Stop: 01/27/22 13:58 Last Admin: 01/27/22 14:20 Dose: 1 mg Documented by: RSTONE Sodium Chloride (Normal Saline 0.9%) 1,000 mls @ 1,000 mls/hr IV BOLUS ONE Stop: 01/27/22 13:24 Last Infusion: 01/27/22 13:43 Dose: 0 mls/hr Documented by: Admin: 01/27/22 12:38 Dose: 1,000 mls/hr Documented by: LAITH Ondansetron HCl (Ondansetron 4 Mg/2 Ml Inj) 4 mg IV NOW ONE Stop: 01/27/22 12:25 Last Admin: 01/27/22 12:38 Dose: 4 mg Documented by: LAITH Pantoprazole Sodium (Pantoprazole 40 Mg Vial) 40 mg IV NOW ONE Stop: 01/27/22 12:25 Last Admin: 01/27/22 12:38 Dose: 40 mg Documented by: LAITH Vital Signs Vital signs: Vital Signs - 8 hr 01/27/22 13:24 01/27/22 13:25 01/27/22 13:30 Pulse Rate 80 77 70 Blood Pressure 165/97 H Pulse Oximetry 97 99 98 01/27/22 14:00 01/27/22 14:35 01/27/22 15:00 Pulse Rate 78 86 75 Blood Pressure 150/82 H Pulse Oximetry 98 93 95 01/27/22 15:21 01/27/22 15:30 01/27/22 16:00 Pulse Rate 89 69 74 Blood Pressure 157/90 H 148/84 H 150/79 H Pulse Oximetry 97 94 95 01/27/22 16:30 01/27/22 17:00 Pulse Rate 72 68 Blood Pressure 150/78 H 147/85 H Pulse Oximetry 96 MDM - Abdominal Pain Lab Data Result diagrams: 01/27/22 12:24 01/27/22 12:24 Labs: Lab Results 01/27/22 01/27/22 01/27/22 Range/Units 12:24 12:24 14:10 WBC 12.5 H (4.5-11.0) X10^3/uL RBC 4.73 (4.0-5.2) X10^6/uL Hgb 13.0 (12.0-16.0) g/dL Hct 39.6 (36-46) % MCV 83.7 (80-100) fL MCH 27.5 (26-34) PG MCHC 32.9 (30-36) % RDW 14.6 (11.6-14.8) % Plt Count 272 (150-400) X10^3/uL Neut % (Auto) 71.9 (50-75) % Lymph % (Auto) 18.9 L (25-40) % [place] % (Auto) 6.8 (3-14) % Eos % (Auto) 1.7 L (2-4) % Baso % (Auto) 0.7 (0-2) % Neut # (Auto) 9000 H (2253-5349) /uL Lymph # (Auto) 2400 (7164-2017) /uL [place] # (Auto) 800 (0-900) /uL Eos # (Auto) 200 (0-450) /uL Baso # (Auto) 100 (0-100) /uL Sodium 139 (137-145) mmol/L Potassium 3.7 (3.4-5.1) mmol/L Chloride 107 (98-107) mmol/L Carbon Dioxide 22 (22-32) mmol/L BUN 13 (7-17) mg/dL Creatinine 0.62 (0.52-1.04) mg/dL Estimated GFR > 60.0 (>60) mL/min BUN/Creatinine Ratio 21.0 (6-22) Glucose 90 (70-100) mg/dL Calcium 9.1 (8.4-10.2) mg/dL Total Bilirubin 0.4 (0.2-1.3) mg/dL AST 33 (14-36) IU/L ALT 29 (<35) IU/L Alkaline Phosphatase 65 (38-126) U/L Total Creatine Kinase 70 (30-135) U/L CK-MB (CK-2) TNP CK-MB (CK-2) Rel Index TNP Troponin I < 0.012 (0.01-0.034) ng/mL Total Protein 8.0 (6.3-8.2) g/dL Albumin 4.6 (3.5-5.0) g/dL Globulin 3.4 (1.7-4.1) g/dL Albumin/Globulin Ratio 1.4 (1.0-2.8) Lipase 187 (23-300) U/L U Opiates 300ng/mL cut Negative (Negative) Ur Oxycodone Screen Negative (Negative) Urine Methadone Screen Negative (Negative) Ur Barbiturates Screen Negative (Negative) U Tricyclic Antidepress Negative (Negative) Ur Phencyclidine Scrn Negative (Negative) Ur Amphetamines Screen Negative (Negative) U Methamphetamines Scrn Negative (Negative) Ur MDMA Scrn (Ecstasy) Negative (Negative) U Benzodiazepines Scrn Negative (Negative) Urine Cocaine Screen Negative (Negative) U Marijuana (THC) Screen Negative (Negative) Imaging Data US - abdomen: Radiologist's Impression: 1. Normal gallbladder.? No gallstones or ultrasound findings to suggest acute cholecystitis. ? 2.? Diffusely increased hepatic echotexture. This finding is most likely secondary to hepatic fatty infiltration although other hepatocellular disease may have a similar appearance. Recommend clinical correlation. ? 3. A 1.5 x 1.1 x 1.8 cm hypo a choroid area adjacent to the gallbladder fossa is compatible with focal fat sparing.? ECG Data Attestation: I personally reviewed and interpreted this ECG as follows: ( Normal sinus rhythm rate 73 beats per minute. Normal intervals. No ectopy. No acute ST T wave changes.) Discharge Plan Departure Patient Disposition: Home Clinical Impression: Abdominal pain, epigastric, Fatty liver Instructions: DI for Epigastric Pain Activity Restrictions/Additional Instructions: Prilosec 40 mg daily. The prescription has been sent to [facility] in [place]. Loup diet, avoid late meals as we discussed. Small meals only. Follow-up with your doctor in 1-2 weeks. Return here as needed. Prescriptions: New omeprazole 20 mg capsule,delayed release(DR/EC) 40 mg PO DAILY Qty: 120 0RF No Action sertraline 100 mg tablet 100 mg PO DAILY Qty: 90 3RF Rx Instructions: Half tablet a day for the 1st 10 days then advanced to 1 complete tablet hydrocodone-acetaminophen 5-325 mg tablet 1 tab PO TID PRN (Reason: pain) Qty: 30 0RF zaleplon 5 mg capsule See Rx Instructions PO BEDTIME PRN (Reason: difficulty staying asleep) Qty: 45 0RF Rx Instructions: 5-10mg PO bedtime PRN; cetirizine [Zyrtec] 10 mg tablet 10 mg PO DAILY 0RF fluticasone propionate [Flonase Allergy Relief] 50 mcg/actuation spray,suspension 2 spray NASAL DAILY 0RF multivitamin tablet 1 tab PO DAILY 0RF naproxen 500 mg tablet 500 mg PO BID Qty: 60 1RF prednisone 50 mg tablet 50 mg PO DAILY Qty: 5 0RF cyclobenzaprine 10 mg tablet 10 mg PO BEDTIME Qty: 20 0RF tramadol 50 mg tablet 50 mg PO Q8H PRN (Reason: pain) Qty: 30 0RF Referrals: Robert Ramirez, [Primary Care Provider] -
[2022-01-27] MEDS: HYDROMORPHONE 1 MG INJ IV (14:20)
[2022-01-27 14:44] LABS: Ur Creatinine Normal (Normal); Ur Specific Gravity Normal (Normal); Urine pH Normal (Normal)
[2022-01-27 14:45] LABS: UR Morphine/Opiate cutoff 300 Negative (Negative); Urine Amphetamines Negative (Negative); Urine Barbiturates Negative (Negative); Urine Benzodiazepines Negative (Negative); Urine Cocaine Negative (Negative); Urine MDMA Negative (Negative); Urine Methadone Negative (Negative); Urine Methamphetamines Negative (Negative); Urine Oxycodone Negative (Negative); Urine Phencyclidine Negative (Negative); Urine Tetrahydrocannabinol Negative (Negative); Urine Tricyclic Antidepressant Negative (Negative)
== END 2022-01-27 17:12 | disposition home or self-care (01) ==
PROVIDERS: Emergency Provider Emergency Medicine; Family Provider Family Medicine; PCP Family Medicine
DX: R10.13 Epigastric pain (principal); K76.0 Fatty (change of) liver, not elsewhere classified
CPT/HCPCS: 36415; 76705; 80053; 80305; 82550; 83690; 84484; 85025; 93005; 96361; 96374; 96375; 99284; C9113; J1170; J2405

== ENCOUNTER → 2022-07-06 13:23 | Outpatient (CLI) | payer BC, SELFPAY ==
--- NOTE | 2022-07-06 13:26 | DI.RAD.S_ITS ---
PROCEDURE: XR WRIST LT MIN 3V INDICATIONS: left hand injury TECHNIQUE: Four views of the wrist were acquired. COMPARISON: None. FINDINGS: Bones: No fractures or dislocations. No suspicious bony lesions. Scaphoid view: Normal Soft tissues: No suspicious soft tissue calcifications. IMPRESSION: Normal left wrist Dictated by: Harvey Alexis M.D. on 07/06/2022 at 13:48 Approved by: Harvey Alexis M.D. on 07/06/2022 at 13:49
--- NOTE | 2022-07-06 13:26 | DI.RAD.S_ITS ---
PROCEDURE: XR FOREARM LT 2V INDICATIONS: left hand injury TECHNIQUE: 2 views of the forearm were acquired. COMPARISON: [facility], , XR HAND LT MIN 3V, 07/06/2022, 13:30. FINDINGS: Bones: No fractures or dislocations. No suspicious bony lesions. Soft tissues: No suspicious soft tissue calcifications or masses. IMPRESSION: Normal left forearm Dictated by: Harvey Alexis M.D. on 07/06/2022 at 13:46 Approved by: Harvey Alexis M.D. on 07/06/2022 at 13:47
--- NOTE | 2022-07-06 13:26 | DI.RAD.S_ITS ---
PROCEDURE: XR HAND LT MIN 3V INDICATIONS: left hand injury TECHNIQUE: 3 views of the hand(s) acquired. COMPARISON: None. FINDINGS: Bones: No fractures or dislocations. Carpal bones are normally aligned. No suspicious bony lesions. Soft tissues: No suspicious soft tissue calcifications. IMPRESSION: Normal left hand Dictated by: Harvey Alexis M.D. on 07/06/2022 at 13:47 Approved by: Harvey Alexis M.D. on 07/06/2022 at 13:48
== END ==
PROVIDERS: Family Provider Family Medicine; PCP Family Medicine; Referring Provider Registered Nurse; Visit Provider Registered Nurse
DX: S69.92XA Unspecified injury of left wrist, hand and finger(s), initial encounter (principal); M79.632 Pain in left forearm
CPT/HCPCS: 73090; 73110; 73130

== ENCOUNTER → 2022-08-24 11:29 | Outpatient (CLI) | payer BC, SELFPAY ==
--- NOTE | 2022-08-24 11:31 | DI.US.S_ITS ---
PROCEDURE: US PERIPH VENOUS UP EXTREM RT INDICATIONS: Right arm swelling and bruising - please evaluate for dvt TECHNIQUE: Real-time imaging, as well as color and pulse Doppler interrogation, was performed of the right upper extremity deep veins from the inferior neck to the antecubital fossa. COMPARISON: None. FINDINGS: The internal jugular vein, visualized portions of the subclavian vein, axillary, and brachial veins are free of intraluminal thrombus. Where physically possible, the veins are normally compressible. Color and pulse Doppler demonstrate normal intraluminal flow, with expected phasicity and pulsatility. Additional scanning of the cephalic and basilic veins of the superficial system demonstrate normal compressibility, without thrombus. IMPRESSION: Negative for deep venous thrombosis. Dictated by: Bishnu Ashton M.D. on 08/24/2022 at 14:08 Approved by: Bishnu Ashton M.D. on 08/24/2022 at 14:08
== END ==
PROVIDERS: Family Provider Family Medicine; PCP Family Medicine; Referring Provider Registered Nurse; Visit Provider Registered Nurse
DX: M79.89 Other specified soft tissue disorders (principal)
CPT/HCPCS: 93971

== ENCOUNTER 2023-06-26 14:06 | Emergency (ER) | payer BC, SELFPAY ==
[2023-06-26] VITALS (10 sets, daily range): BP systolic 143–182; BP diastolic 80–106; PULSE 54–61; RESP 20; TEMP 36.5–36.7; O2SAT 98–100; BMI 30.9
[2023-06-26] MEDS: ONDANSETRON 4 MG/2 ML INJ IV (16:17)
[2023-06-26 16:29] LABS: Add Manual Diff / Slide Review NO; Basophils Absolute Auto 100 /uL (0-100); Eosinophils Absolute Auto 1300 /uL (0-450); Eosinophils Percent Auto 14.6 % (2-4); Hematocrit 39.2 % (36-46); Hemoglobin 12.8 g/dL (12.0-16.0); Lymphocytes Absolute Auto 3300 /uL (1100-4500); Lymphocytes Percent Auto 37.6 % (25-40); Mean Corpuscular HGB Conc 32.7 % (30-36); Mean Corpuscular Hemoglobin 27.7 PG (26-34); Mean Corpuscular Volume 84.6 fL (80-100); Monocytes Absolute Auto 600 /uL (0-900); Monocytes Percent Auto 6.8 % (3-14); Neutrophils Absolute Auto 3500 /uL (1500-7000); Platelet Count 306 X10^3/uL (150-400); Red Blood Cell Count 4.63 X10^6/uL (4.0-5.2); Red Cell Distribution Width 14.5 % (11.6-14.8); White Blood Cell Count 8.8 X10^3/uL (4.5-11.0)
[2023-06-26 16:37] LABS: Alanine Aminotransferase 23 IU/L (<35); Albumin 4.8 g/dL (3.5-5.0); Albumin Globulin Ratio 1.4 (1.0-2.8); Alkaline Phosphatase 48 U/L (38-126); Aspartate Aminotransferase 32 IU/L (14-36); BUN Creatinine Ratio 17.2 (6-22); Bilirubin Total 0.5 mg/dL (0.2-1.3); Blood Urea Nitrogen 10 mg/dL (7-17); Calcium 9.2 mg/dL (8.4-10.2); Carbon Dioxide 23 mmol/L (22-32); Chloride 107 mmol/L (98-107); Estimated Glomerular Filt Rate > 60 mL/min (>60); Globulin 3.5 g/dL (1.7-4.1); Glucose 84 mg/dL (70-100); Lipase 215 U/L (23-300); Potassium 3.9 mmol/L (3.4-5.1); Sodium 139 mmol/L (137-145); Total Protein 8.3 g/dL (6.3-8.2)
[2023-06-26 16:38] LABS: HEMOLYSIS 57 (0-50)
[2023-06-26 17:06] LABS: Adenovirus F 40/41 Not Detected (Not Detect); Astrovirus Not Detected (Not Detect); Campylobacter Not Detected (Not Detect); Clostridium difficile toxin AB Not Detected (Not Detect); Cryptosporidium Not Detected (Not Detect); Cyclospora cayetanensis Not Detected (Not Detect); Entamoeba histolytica Not Detected (Not Detect); Enteroaggregative E.coli Not Detected (Not Detect); Enteropathogenic E.coli Not Detected (Not Detect); Enterotoxigenic E.coli It/st Not Detected (Not Detect); Giardia lamblia Not Detected (Not Detect); Norovirus GI/GII Not Detected (Not Detect); Plesiomonsa shigelloides Not Detected (Not Detect); Rotavirus A Not Detected (Not Detect); Salmonella Not Detected (Not Detect); Sapovirus Not Detected (Not Detect); Shiga-like toxin-prod E.coli Not Detected (Not Detect); Shigella/Enteroinvasive E.coli Not Detected (Not Detect); Vibrio Not Detected (Not Detect); Vibrio cholerae Not Detected (Not Detect); Yersinia enterocolitica Not Detected (Not Detect)
--- NOTE | 2023-06-26 18:17 | ED_ITS ---
HPI - Nausea/Vomiting/Diarrhea General Chief complaint: Nausea/Vomiting/Diarrhea Stated complaint: dehydrated and dizzy Time Seen by Provider: 06/26/23 16:32 Source: patient Mode of arrival: Ambulatory History of Present Illness HPI Narrative: Patient is a 42-year-old female. States she has a diagnosis of IBS. She is not seen a GI doctor. She is not had a colonoscopy. This diagnosis was made by her primary doctor. She is here for evaluation of a proximally 1 week of diarrhea. No recent travel. No recent antibiotics. She is not having any vomiting. She is not having any abdominal pain. She states she feels dehydrated somewhat dizzy. She is not tried anything for her diarrhea except for altering her diet. No fevers. No rashes. Related Data Home Medications Medication Instructions Recorded Confirmed cetirizine 10 mg tablet (Zyrtec) 10 mg PO DAILY 04/07/19 06/20/23 fluticasone propionate 50 2 spray intranasal DAILY 04/07/19 06/20/23 mcg/actuation nasal spray,suspension (Flonase Allergy Relief) multivitamin 1 tab PO DAILY 05/20/19 06/20/23 Previous Rx's Medication Instructions Recorded sertraline 100 mg tablet 100 mg PO DAILY Anxiety, 06/20/23 depression #90 tabs trazodone 50 mg tablet 50 mg PO BEDTIME #90 tabs 06/20/23 Allergies Allergy/AdvReac Type Severity Reaction Status Date / Time Sulfa (Sulfonamide Allergy Severe Anaphylactic Verified 06/20/23 13:39 Antibiotics) shock Penicillins Allergy Intermediate Hives Verified 06/20/23 13:39 cefaclor [From Ceclor] Allergy Mild Hives Verified 06/20/23 13:39 Cefaclor Allergy Unknown Uncoded 06/20/23 13:39 Penicillin Allergy Unknown Uncoded 06/20/23 13:39 SULFA (sulfonamide) Allergy Unknown Uncoded 06/20/23 13:39 Review of Systems Review of Systems ROS Unobtainable: All systems reviewed & are unremarkable except as noted in HPI and below Patient History Medical History Asthma Basal cell carcinoma Cervical strain Fractures Ganglion cyst of dorsum of right wrist Insomnia Irritable bowel syndrome with diarrhea Kidney stones (~2013) Lumbar strain MCL sprain of right knee Pharyngeal lesion Preventative health care Seasonal allergies (~2015) Skin lesion Tinea pedis Well adult exam Surgical History H/O lithotripsy H/O: hysterectomy Family History Father Hyperlipidemia Hypertension Grandfather Cancer Grandmother Cancer Grandfather Dementia Grandmother Dementia Social History Smoking Status: Never smoker second hand exposure: No alcohol intake: never substance use type: does not use Smoking Status: Never smoker alcohol intake frequency: 0-2 drinks per day Substance Use Type: does not use Exam Initial Vital Signs Initial Vital Signs: Vital Signs Temperature 97.7 F 06/26/23 14:11 Pulse Rate 57 L 06/26/23 14:11 Respiratory Rate 20 06/26/23 14:11 Blood Pressure 182/96 H 06/26/23 14:11 Pulse Oximetry 99 06/26/23 14:11 Oxygen Delivery Method Room Air 06/26/23 14:11 Const General: cooperative, comfortable and No ill appearing Resp Effort & Inspection: normal respiratory effort Cardio Rate: regular rate GI Inspection: non-distended Neuro General: patient alert, patient awake and moves all extremities Extrem General: normal to inspection Course Orders Ordered: ED Orders 06/26/23 15:52 GI Panel (Film Array) Stat 06/26/23 16:15 Complete Blood Count AUTO DIFF Stat Comprehensive Metabolic Panel Stat Lipase Stat Discontinued Medications Sodium Chloride (Normal Saline 0.9%) 1,000 mls @ 1,000 mls/hr IV BOLUS ONE Stop: 06/26/23 19:15 Last Infusion: 06/26/23 19:36 Dose: 0 mls/hr Documented By: Admin: 06/26/23 18:30 Dose: 1,000 mls/hr Documented By: GWENDOLYN Loperamide HCl (Loperamide 2 Mg Capsule) 4 mg PO NOW ONE Stop: 06/26/23 18:17 Last Admin: 06/26/23 18:30 Dose: 4 mg Documented By: GWENDOLYN Ondansetron HCl (Ondansetron 4 Mg Odt) 4 mg PO NOW PRN PRN Reason: Nausea And Vomiting Ondansetron HCl (Ondansetron 4 Mg/2 Ml Inj) 4 mg IV NOW PRN PRN Reason: Nausea And Vomiting Last Admin: 06/26/23 16:17 Dose: 4 mg Documented By: CARTER Vital Signs Vital signs: Vital Signs - 8 hr 06/26/23 14:11 06/26/23 17:41 06/26/23 17:43 Temperature 97.7 F Pulse Rate 57 L 57 L 57 L Respiratory Rate 20 Blood Pressure 182/96 H Pulse Oximetry 99 99 99 Oxygen Delivery Method Room Air 06/26/23 17:43 06/26/23 18:00 06/26/23 18:28 Temperature Pulse Rate 56 L Respiratory Rate Blood Pressure 181/90 H 168/96 H Pulse Oximetry 98 Oxygen Delivery Method 06/26/23 18:28 06/26/23 18:30 06/26/23 18:30 Temperature Pulse Rate 60 61 Respiratory Rate Blood Pressure 166/97 H Pulse Oximetry 98 100 Oxygen Delivery Method 06/26/23 19:00 06/26/23 19:01 06/26/23 19:01 Temperature Pulse Rate 54 L 54 L Respiratory Rate Blood Pressure 156/106 H Pulse Oximetry 99 99 Oxygen Delivery Method 06/26/23 19:30 06/26/23 19:30 06/26/23 19:36 Temperature 98.0 F Pulse Rate 59 L Respiratory Rate Blood Pressure 143/80 H Pulse Oximetry 98 Oxygen Delivery Method MDM - Nausea/Vomiting/Diarrhea Lab Data 06/26/23 16:15 06/26/23 16:15 Labs: Lab Results 06/26/23 06/26/23 06/26/23 Range/Units 15:52 16:15 16:15 WBC 8.8 (4.5-11.0) X10^3/uL RBC 4.63 (4.0-5.2) X10^6/uL Hgb 12.8 (12.0-16.0) g/dL Hct 39.2 (36-46) % MCV 84.6 (80-100) fL MCH 27.7 (26-34) PG MCHC 32.7 (30-36) % RDW 14.5 (11.6-14.8) % Plt Count 306 (150-400) X10^3/uL Neut % (Auto) 40.0 L (50-75) % Lymph % (Auto) 37.6 (25-40) % Hitchcock % (Auto) 6.8 (3-14) % Eos % (Auto) 14.6 H (2-4) % Baso % (Auto) 1.0 (0-2) % Neut # (Auto) 3500 (5445-9000) /uL Lymph # (Auto) 3300 (2895-9299) /uL Hitchcock # (Auto) 600 (0-900) /uL Eos # (Auto) 1300 H (0-450) /uL Baso # (Auto) 100 (0-100) /uL Sodium 139 (137-145) mmol/L Potassium 3.9 (3.4-5.1) mmol/L Chloride 107 (98-107) mmol/L Carbon Dioxide 23 (22-32) mmol/L BUN 10 (7-17) mg/dL Creatinine 0.58 (0.52-1.04) mg/dL Estimated GFR > 60 (>60) mL/min BUN/Creatinine Ratio 17.2 (6-22) Glucose 84 (70-100) mg/dL Calcium 9.2 (8.4-10.2) mg/dL Total Bilirubin 0.5 (0.2-1.3) mg/dL AST 32 (14-36) IU/L ALT 23 (<35) IU/L Alkaline Phosphatase 48 (38-126) U/L Total Protein 8.3 H (6.3-8.2) g/dL Albumin 4.8 (3.5-5.0) g/dL Globulin 3.5 (1.7-4.1) g/dL Albumin/Globulin Ratio 1.4 (1.0-2.8) Lipase 215 (23-300) U/L Stl C. cayetanensis PCR Not detected (Not Detect) Stool Rotavirus (PCR) Not detected (Not Detect) Stool Adenovirus (PCR) Not detected (Not Detect) Stool Astrovirus (PCR) Not detected (Not Detect) Stool Cryptosporidium PCR Not detected (Not Detect) Stl E.coli Shiga Tox PCR Not detected (Not Detect) St Sh/Enteroin Ecoli PCR Not detected (Not Detect) Stool E coli O157 PCR Not detected (Not Detect) Stl Enterotoxigenic E PCR Not detected (Not Detect) Stool EPEC (PCR) Not detected (Not Detect) Stl E. histolytica PCR Not detected (Not Detect) Stool Giardia Lamblia PCR Not detected (Not Detect) Stool Sapovirus (PCR) Not detected (Not Detect) Stl P. shigelloides PCR Not detected (Not Detect) St Y.enterocolitica PCR Not detected (Not Detect) Stool Vibrio (PCR) Not detected (Not Detect) Stl Vibrio cholerae PCR Not detected (Not Detect) Stl Enteroaggr Ecoli PCR Not detected (Not Detect) Stl Norovirus GI/GII PCR Not detected (Not Detect) Campylobacter (PCR) Not detected (Not Detect) C. difficile Tox (PCR) Not detected (Not Detect) Salmonella (PCR) Not detected (Not Detect) Point of Care Testing Test Results Negative Urine Dip Bedside Urine Glucose Negative Bedside Urine Bilirubin - Negative Bedside Urine Ketone ++ 40 Urine Specific [place] 1.020 Bedside Urine Occult Blood - Negative Bedside Urine pH 6.0 Bedside Urine Protein - Negative Bedside Urine Urobilinogen - Negative Bedside Urine Nitrite - Negative Bedside Urine Leukocytes - Negative Esterase MDM Narrative Medical decision making narrative: Labs are unremarkable to include a negative GI panel. Her exam was benign. Vital signs are unremarkable. We did discuss her presentation today. There was no indication for radiologic studies. Advised that she start taking an antidiarrheal medicines such as Imodium. She was given a dose here in the ER. Was also given fluids. Advised that she follow-up with her primary doctor to discuss the indications for referral for a colonoscopy. We discussed using Imodium at home. She was given return precautions. She expressed understanding and agreement. Discharge Plan Departure Patient Disposition: Home Clinical Impression: Diarrhea Instructions: Diarrhea Activity Restrictions/Additional Instructions: I do recommend that you start taking Imodium/loperamide as directed. You can purchase this [id number]. Also recommend that you make an appointment with your primary doctor to discuss potential follow-up with gastroenterology/ge neral surgery to discuss the indications for a colonoscopy. Return to the emergency department for new symptoms. Prescriptions: No Action cetirizine [Zyrtec] 10 mg tablet 10 mg PO DAILY fluticasone propionate [Flonase Allergy Relief] 50 mcg/actuation spray,suspension 2 spray NASAL DAILY multivitamin tablet 1 tab PO DAILY sertraline 100 mg tablet 100 mg PO DAILY MDD 100mg Qty: 90 3RF Rx Instructions: Take one tablet by mouth daily trazodone 50 mg tablet 50 mg PO BEDTIME Qty: 90 3RF Referrals: Robert Ramirez, [Primary Care Provider] - Stand Alone Forms: Patient Portal/API
[2023-06-26] MEDS: LOPERAMIDE 2 MG CAPSULE 4 MG PO (18:30)
[2023-06-26] MEDS: SODIUM CHLORIDE 0.9% 1,000 ML 1000 ML IV (18:30)
== END 2023-06-26 19:38 | disposition home or self-care (01) ==
PROVIDERS: Emergency Medicine; Emergency Provider Emergency Medicine; Family Provider Family Medicine; PCP Family Medicine
DX: R19.7 Diarrhea, unspecified (principal)
CPT/HCPCS: 36415; 80053; 81003; 81025; 83690; 85025; 87507; 96374; 99284; J2405

== ENCOUNTER → 2023-09-10 07:58 | Outpatient (CLI) | payer BC, SELFPAY ==
[2023-09-11 23:37] LABS: Deamidated Gliadin Ab IgA 23 units (0-19); Deamidated Gliadin Ab IgG 16 units (0-19); Immunoglobulin A,Qn 210 mg/dL (87-352); t-Transglutaminase IgA 6 U/mL (0-3)
== END ==
PROVIDERS: Family Provider Family Medicine; PCP Family Medicine; Referring Provider Internal Medicine Gastroenterology; Visit Provider Internal Medicine Gastroenterology
DX: K90.0 Celiac disease (principal)
CPT/HCPCS: 36415; 82784; 83516

== ENCOUNTER → 2024-01-23 08:21 | Outpatient (CLI) | payer BC, SELFPAY | PROVIDERS: Family Provider Family Medicine; PCP Family Medicine; Visit Provider Physician Assistant Medical | DX: J02.9 Acute pharyngitis, unspecified (principal) | CPT/HCPCS: 87070; 87077; 87147 ==

== ENCOUNTER → 2024-04-17 08:20 | Outpatient (CLI) | payer BC, SELFPAY ==
--- NOTE | 2024-04-17 08:22 | DI.MG.S_ITS ---
BILATERAL DIGITAL SCREENING MAMMOGRAM 3D/2D WITH CAD: 04/17/2024 CLINICAL: Routine screening. Family history of breast cancer. Comparison is made to exam dated: 03/05/2018 mammogram - outside facility. Both breasts are heterogeneously dense, which may obscure small masses (category c / 51-75% glandular tissue). Current study was also evaluated with a Computer Aided Detection (CAD) system. There is possible architectural distortion in the right breast at 9 o'clock middle depth. No other significant masses, calcifications, or other findings are seen in either breast. IMPRESSION: INCOMPLETE: NEEDS ADDITIONAL IMAGING EVALUATION The possible architectural distortion in the right breast is indeterminate. Additional views with possible ultrasound are recommended. Based on Tyrer-Cuzick model (a risk assessment model), the patient's lifetime risk is 21.6% and her 10 year risk is 4.1%. If a patient has an elevated risk, a more comprehensive evaluation should be considered and/or a referral to a genetic counselor. The [place] [employer], [place] [employer], and NCCN Guidelines advise the consideration of Breast MRI as an adjunct to screening mammography in patients whose Lifetime risk to develop breast cancer is 20% or higher. This exam was interpreted at Station ID: [id number]. NOTE: For mammograms, a report in lay terms will be sent to the patient. Approximately 15% of breast malignancies will not be visualized mammographically. In the management of a palpable breast mass, a negative mammogram must not discourage biopsy of a clinically suspicious lesion. Electronically Signed By: Ned brooks/evert:04/17/2024 11:15:40 letter sent: Additional Imaging Needed ACR BI-RADS Category 0: Incomplete [id number]
[2024-04-17 10:14] LABS: Add Manual Diff / Slide Review NO; Basophils Absolute Auto 0 /uL (0-100); Basophils Percent Auto 0.5 % (0-2); Eosinophils Absolute Auto 100 /uL (0-450); Eosinophils Percent Auto 1.9 % (2-4); Hematocrit 39.8 % (36-46); Hemoglobin 13.1 g/dL (12.0-16.0); Lymphocytes Absolute Auto 3100 /uL (1100-4500); Lymphocytes Percent Auto 46.2 % (25-40); Mean Corpuscular Hemoglobin 27.9 PG (26-34); Mean Corpuscular Volume 84.8 fL (80-100); Monocytes Absolute Auto 500 /uL (0-900); Monocytes Percent Auto 7.3 % (3-14); Neutrophils Absolute Auto 3000 /uL (1500-7000); Neutrophils Percent Auto 44.1 % (50-75); Platelet Count 295 X10^3/uL (150-400); Red Blood Cell Count 4.69 X10^6/uL (4.0-5.2); Red Cell Distribution Width 14.4 % (11.6-14.8); White Blood Cell Count 6.8 X10^3/uL (4.5-11.0)
[2024-04-17 10:40] LABS: Alanine Aminotransferase 22 IU/L (<35); Albumin 4.4 g/dL (3.5-5.0); Albumin Globulin Ratio 1.5 (1.0-2.8); Alkaline Phosphatase 56 U/L (38-126); Aspartate Aminotransferase 25 IU/L (14-36); BUN Creatinine Ratio 21.9 (6-22); Bilirubin Total 0.5 mg/dL (0.2-1.3); Blood Urea Nitrogen 16 mg/dL (7-17); Calcium 9.3 mg/dL (8.4-10.2); Carbon Dioxide 26 mmol/L (22-32); Chloride 108 mmol/L (98-107); Cholesterol 169 mg/dL (140-199); Estimated Glomerular Filt Rate > 60 mL/min (>60); Globulin 2.9 g/dL (1.7-4.1); Glucose 89 mg/dL (70-100); HDL Cholesterol 70 mg/dL (40-60); HEMOLYSIS < 15 (0-50); LDL Cholesterol Calculated 86 mg/dL (<100); Potassium 4.2 mmol/L (3.4-5.1); Sodium 139 mmol/L (137-145); Total Protein 7.3 g/dL (6.3-8.2); Triglycerides 66 mg/dL (35-150)
[2024-04-17 10:52] LABS: Vitamin D 25 Hydroxy (D3) 17.9 ng/mL (30.0-100.0)
[2024-04-17 11:05] LABS: TSH w/ Reflex to FT4 2.95 uIU/mL (0.47-4.68)
== END ==
LOC: MAMMO 08:21
PROVIDERS: Family Provider Family Medicine; PCP Family Medicine; Referring Provider Family Medicine; Visit Provider Family Medicine
DX: Z12.31 Encounter for screening mammogram for malignant neoplasm of breast (principal); R92.333 Mammographic heterogeneous density, bilateral breasts; Z00.00 Encounter for general adult medical examination without abnormal findings; Z80.3 Family history of malignant neoplasm of breast
CPT/HCPCS: 36415; 77063; 77067; 80053; 80061; 82306; 84443; 85025

== ENCOUNTER → 2024-04-30 13:24 | Outpatient (CLI) | payer BC, SELFPAY ==
--- NOTE | 2024-04-30 | DI.MG.S_ITS ---
UNILATERAL RIGHT DIGITAL DIAGNOSTIC MAMMOGRAM 3D/2D WITH ADDITIONAL VIEWS: 04/30/2024 CLINICAL: Additional evaluation requested from prior study. Comparison is made to exams dated: 04/17/2024 mammogram - [facility] and 03/05/2018 mammogram - outside facility. The right breast is heterogeneously dense, which may obscure small masses (category c / 51-75% glandular tissue). There is possible architectural distortion in the right breast at 9 o'clock middle depth. This is not seen in additional views. No other significant masses or calcifications are seen in the breast. IMPRESSION: INCOMPLETE: NEEDS ADDITIONAL IMAGING EVALUATION The possible architectural distortion in the right breast is indeterminate. A targeted ultrasound is recommended and will immediately follow. Based on Tyrer-Cuzick model (a risk assessment model), the patient's lifetime risk is 21.6% and her 10 year risk is 4.1%. If a patient has an elevated risk, a more comprehensive evaluation should be considered and/or a referral to a genetic counselor. The [place] [employer], [place] [employer], and NCCN Guidelines advise the consideration of Breast MRI as an adjunct to screening mammography in patients whose Lifetime risk to develop breast cancer is 20% or higher. This exam was interpreted at Station ID: [id number]. NOTE: For mammograms, a report in lay terms will be sent to the patient. Approximately 15% of breast malignancies will not be visualized mammographically. In the management of a palpable breast mass, a negative mammogram must not discourage biopsy of a clinically suspicious lesion. Electronically Signed By: Ulises Craft M.D. slc/:04/30/2024 14:12:45 ACR BI-RADS Category 0: Incomplete [id number]
--- NOTE | 2024-04-30 13:25 | DI.US.S_ITS ---
LIMITED ULTRASOUND OF RIGHT BREAST: 04/30/2024 CLINICAL: Follow up from addtional views. Comparison is made to exams dated: 04/30/2024 mammogram, 04/17/2024 mammogram - [facility], 03/05/2018 mammogram, and 03/05/2018 ultrasound - outside facility. Color flow and real-time ultrasound of the right breast 10 o'clock region were performed. Hunter scale images of the real-time examination were reviewed. No mass in the region of possible distortion. Small benign appearing cyst with debris. No internal vascularity. IMPRESSION: BENIGN There is no sonographic evidence of malignancy. No mass or significant cyst. A 1 year screening mammogram is recommended. Exam findings were conveyed to the patient. This exam was interpreted at Station ID: [id number]. Electronically Signed By: Ulises Craft M.D. [facility] [place]/:04/30/2024 15:24:22 letter sent: Normal Exam Ultrasound BI-RADS: 2 Benign
== END ==
PROVIDERS: Family Provider Family Medicine; PCP Family Medicine; Referring Provider Family Medicine; Visit Provider Family Medicine
DX: R92.8 Other abnormal and inconclusive findings on diagnostic imaging of breast (principal); R92.331 Mammographic heterogeneous density, right breast
CPT/HCPCS: 76642; 77065; G0279

== ENCOUNTER → 2024-05-06 13:35 | Outpatient (CLI) | payer BC, SELFPAY ==
[2024-05-06 14:20] LABS: COVID-19 CEPHEID 4-PLEX PCR Negative (Negative); Influenza A - CEPHEID Flu A NEGATIVE (NEGATIVE); Influenza B - CEPHEID Flu B NEGATIVE (NEGATIVE); Respiratory Syncytial Virus Negative (Negative)
== END ==
PROVIDERS: Family Provider Family Medicine; PCP Family Medicine; Visit Provider Nurse Practitioner Family
DX: R05.1 Acute cough (principal)
CPT/HCPCS: 0241U

== ENCOUNTER → 2024-05-06 14:13 | Outpatient (CLI) | payer BC, SELFPAY ==
--- NOTE | 2024-05-06 14:14 | DI.RAD.S_ITS ---
PROCEDURE: XR CHEST 2V INDICATIONS: Cough TECHNIQUE: 2 views of the chest were acquired. COMPARISON: None. FINDINGS: Surgical changes and devices: None. Lungs and pleura: Lungs are clear. No pleural effusions or pneumothorax. Mediastinum: Mediastinal contours are normal. Heart size is normal. Bones and chest wall: No suspicious bony abnormalities. Soft tissues appear unremarkable. IMPRESSION: Normal two view chest x-ray Approved by: Mahesh Silva M.D. on 05/06/2024 at 18:19
== END ==
PROVIDERS: Family Provider Family Medicine; PCP Family Medicine; Referring Provider Nurse Practitioner Family; Visit Provider Nurse Practitioner Family
DX: R05.9 Cough, unspecified (principal)
CPT/HCPCS: 71046

== ENCOUNTER → 2024-09-30 07:31 | Outpatient (CLI) | payer BC, SELFPAY ==
[2024-09-30 08:32] LABS: Adenovirus Not Detected (Not Detect); B. parapertussis Not Detected (Not Detecte); Bordetella pertussis Not Detected (Not Detect); Chlamydophila pneumoniae Not Detected (Not Detect); Coronavirus 229E Not Detected (Not Detect); Coronavirus HKU1 Not Detected (Not Detect); Coronavirus NL 63 Not Detected (Not Detect); Coronavirus OC43 Not Detected (Not Detect); Human Metapneumovirus Not Detected (Not Detect); Human Rhinovirus/Enterovirus Not Detected (Not Detect); Influenza A H3 Detected (Not Detect); Influenza B Not Detected (Not Detect); Mycoplasma pneumoniae Not Detected (Not Detect); Parainfluenza Virus 1 Not Detected (Not Detect); Parainfluenza Virus 2 Not Detected (Not Detect); Parainfluenza Virus 3 Not Detected (Not Detect); Parainfluenza Virus 4 Not Detected (Not Detect); Respiratory Syncytial Virus Not Detected (Not Detect); SARS- CoV-2 Not Detected (Not Detecte)
== END ==
PROVIDERS: Family Provider Family Medicine; PCP Family Medicine; Visit Provider Physician Assistant Medical
DX: R05.9 Cough, unspecified (principal)
CPT/HCPCS: 87633

== ENCOUNTER → 2024-09-30 07:39 | Outpatient (CLI) | payer BC, SELFPAY ==
--- NOTE | 2024-09-30 07:40 | DI.RAD.S_ITS ---
PROCEDURE: XR CHEST 2V INDICATIONS: Cough and shortness of breath TECHNIQUE: 2 views of the chest were acquired. COMPARISON: [facility], CR, XR CHEST 2V, 05/06/2024, 13:22. FINDINGS: Surgical changes and devices: None. Lungs and pleura: Lungs are clear. No pleural effusions or pneumothorax. Mediastinum: Mediastinal contours are normal. Heart size is normal. Bones and chest wall: No suspicious bony abnormalities. Soft tissues appear unremarkable. IMPRESSION: No acute cardiopulmonary abnormality is seen. Dictated by: Mihai Hernandez M.D. on 09/30/2024 at 8:09 Approved by: Mihai Hernandez M.D. on 09/30/2024 at 8:10
== END ==
PROVIDERS: Family Provider Family Medicine; PCP Family Medicine; Referring Provider Physician Assistant Medical; Visit Provider Physician Assistant Medical
DX: R05.9 Cough, unspecified (principal)
CPT/HCPCS: 71046; 87633

== ENCOUNTER 2025-02-13 10:01 | Emergency (ER) | payer OTHER, SELFPAY ==
[2025-02-13] VITALS (22 sets, daily range): BP systolic 151–209; BP diastolic 87–112; PULSE 54–72; RESP 9–20; TEMP 36.8; O2SAT 97–99; BMI 33.0
--- NOTE | 2025-02-13 10:01 | DI.RAD.S_ITS ---
PROCEDURE: XR CHEST 1V INDICATIONS: chest pain TECHNIQUE: One view of the chest was acquired. COMPARISON: [facility], CR, XR CHEST 2V, 05/06/2024, 13:22. [facility], CR, XR CHEST 2V, 09/30/2024, 7:41. FINDINGS: Surgical changes and devices: None. Lungs and pleura: Lungs are clear. No pleural effusions or pneumothorax. Mediastinum: Mediastinal contours appear normal. Heart size is normal. Bones and chest wall: No suspicious bony lesions. Overlying soft tissues appear unremarkable. IMPRESSION: Unremarkable portable chest. Dictated by: Bishnu Ashton M.D. on 02/13/2025 at 9:33 Approved by: Bishnu Ashton M.D. on 02/13/2025 at 9:34
--- NOTE | 2025-02-13 10:10 | EKG_ITS ---
[facility] [address] [place] [address] Test Date: 2025-02-13 Pat Name: Tessa Lopez Department: [facility] Room: Gender: Female [employer]ist: : 1980 Requested By: Order Number: [id number] Reading MD: Indra Le Measurements Intervals [place] Rate: 58 P: 14 GA: 136 QRS: 31 QRSD: 96 T: 18 QT: 448 QTc: 439 Interpretive Statements Sinus bradycardia Electronically Signed On 02-16-2025 20:09:42 PDT by Indra Le
[2025-02-13 10:17] LABS: INR 1.1 (0.9-1.3); Prothrombin Time 11.9 SECONDS (9.4-12.5)
[2025-02-13 10:19] LABS: Add Manual Diff / Slide Review NO; Basophils Absolute Auto 0 /uL (0-100); Basophils Percent Auto 0.8 % (0-2); Eosinophils Absolute Auto 200 /uL (0-450); Eosinophils Percent Auto 2.6 % (2-4); Hematocrit 43.3 % (36-46); Hemoglobin 14.4 g/dL (12.0-16.0); Lymphocytes Absolute Auto 2400 /uL (1100-4500); Lymphocytes Percent Auto 40.3 % (25-40); Mean Corpuscular HGB Conc 33.3 % (30-36); Mean Corpuscular Hemoglobin 28.3 PG (26-34); Mean Corpuscular Volume 84.9 fL (80-100); Monocytes Absolute Auto 600 /uL (0-900); Monocytes Percent Auto 10.3 % (3-14); Neutrophils Absolute Auto 2700 /uL (1500-7000); Platelet Count 264 X10^3/uL (150-400); Red Cell Distribution Width 13.8 % (11.6-14.8); White Blood Cell Count 5.8 X10^3/uL (4.5-11.0)
[2025-02-13 10:20] LABS: PTT Partial Thromboplastin Tim 37 SECONDS (25.1-36.5)
--- NOTE | 2025-02-13 10:28 | PC.NURSE ---
Pt works at the [employer]. reports woke this morning with intense headache. started HCTZ 12.[address] Sim. gave her swim lesson today and when exiting pool started to feel LH'd and dizzy. had near syncopal episode. arrives via EMS. NSR 60's however states she is having the worst headache of her life. mild nausea but declining zofran at this time. FAST neg. BP 200's systolic. speaking in clear sentences. AAOx3. at bedside. Pt denies CP or SOB.
--- NOTE | 2025-02-13 10:30 | ED_ITS ---
HPI - Dizziness General Chief Complaint: Dizziness Stated Complaint: Dizzy Weak Time Seen by Provider: 02/13/25 10:28 Source: patient Mode of arrival: EMS History of Present Illness HPI Narrative: Patient is a 44-year-old female with known celiac disease asthma presenting to day with severe headache and lightheadedness. 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 No chest pain no numbness no tingling no weakness. She was started on hydrochlorothiazide this week and has taken 2 doses. Blood pressure is noted to be extremely elevated 199/111. at bedside reports that she typically does get headaches she reports this is the worst headache of her life. She has not passed out or lost consciousness. No significant nausea or vomiting. Headache definitely gets worse whenever she moves it is mostly on the left side. Headache started yesterday. Related Data Home Medications Medication Instructions Recorded Confirmed cetirizine 10 mg tablet (Zyrtec) 10 mg PO DAILY 04/07/19 02/11/25 multivitamin 1 tab PO DAILY 05/20/19 02/11/25 albuterol sulfate 90 mcg/actuation inhalation 10/31/23 02/11/25 aerosol inhaler montelukast 10 mg tablet 10 mg PO DAILY 10/31/23 02/11/25 fluticasone 500 mcg-salmeterol 50 inhalation 05/06/24 02/11/25 mcg/dose blistr powdr for inhalation (Wixela Inhub) beclomethasone dipropionate 40 1 inh inhalation BID 01/26/25 02/11/25 mcg/actuation HFA breath activated aerosol (Qvar RediHaler) Previous Rx's Medication Instructions Recorded sertraline 100 mg tablet 100 mg PO DAILY Anxiety, 07/07/24 depression #90 tabs dicyclomine 10 mg capsule 10 mg PO TID PRN abdominal pain 02/11/25 #30 caps hydrochlorothiazide 12.5 mg tablet 12.5 mg PO DAILY #30 tabs 02/11/25 Allergies Allergy/AdvReac Type Severity Reaction Status Date / Time Sulfa (Sulfonamide Allergy Severe Anaphylactic Verified 02/13/25 10:02 Antibiotics) shock Penicillins Allergy Intermediate Hives Verified 02/13/25 10:02 [facility] [facility] [place] Allergy Mild Hives Verified 02/13/25 10:02 Cefaclor Allergy Unknown Uncoded 02/11/25 07:53 Penicillin Allergy Unknown Uncoded 02/11/25 07:53 SULFA (sulfonamide) Allergy Unknown Uncoded 02/11/25 07:53 Patient History Medical History Celiac disease Insomnia Ganglion cyst of dorsum of right wrist Irritable bowel syndrome with diarrhea Pharyngeal lesion Well adult exam Basal cell carcinoma Preventative health care Skin lesion Tinea pedis MCL sprain of right knee Cervical strain Lumbar strain Asthma Seasonal allergies (~2015) Fractures Kidney stones (~2013) Surgical History H/O: hysterectomy H/O lithotripsy Family History Father Hyperlipidemia Hypertension Grandfather Cancer Grandmother Cancer Grandfather Dementia Grandmother Dementia Social History Smoking Status: Unknown if ever smoked second hand exposure: No alcohol intake: never substance use type: does not use Smoking Status: Unknown if ever smoked alcohol intake frequency: 0-2 drinks per day Exam Initial Vital Signs Initial Vital Signs: Vital Signs Temperature 98.3 F 02/13/25 10:00 Pulse Rate 72 02/13/25 10:00 Respiratory Rate 14 02/13/25 10:00 Blood Pressure 199/112 H 02/13/25 10:00 Pulse Oximetry 97 02/13/25 10:00 Oxygen Delivery Method Room Air 02/13/25 10:00 GENERAL: Alert 44-year-old female appears slightly anxious HEENT: Head atraumatic,EOMI, pupils reactive, face symmetric, moist mucous membranes Neck supple CARDIOVASCULAR: Regular rate and rhythm without murmurs, rubs or gallops. RESPIRATORY: Breath sounds equal bilaterally, no wheezes rales or rhonchi. ABDOMEN: Soft, nontender. Normoactive bowel sounds all 4 quadrants. No guarding or rebound. EXTREMITIES: Normal range of motion, no clubbing or edema. Neurovascularly intact NEUROLOGICAL: Alert and oriented x4.Normal gait and speech. Cranial nerves II through XII grossly intact. Good [id number]-[id number], good [id number], strength equal bilaterally, no dysarthria or aphasia, sensation in tact to soft touch bilaterally, no visual changes, no facial droop SKIN: Warm, dry, no laceration, no petechiae, no rashes or lesions. Scores NIH Stroke Scale Level of Conciousness: Alert, keenly responsive Ask month/age: Answers both questions correctly. Open/close eyes, close hand: Performs both tasks correctly Best gaze horizontal: Normal Visual matthews: No visual loss Facial palsy: Normal symetrical movement Left arm drift: No drift for full 10 sec Right arm drift: No drift for full 10 sec Left leg drift: No drift for full 5 sec Right leg drift: No drift for full 5 sec Limb ataxia: Absent Sensory on face/arms/legs: Normal, no sensory loss Best language: No aphasia, normal Dysarthria: Normal Extinction or inattention: No abnormality Total NIH Stroke scale score: 0 Course Orders Ordered: ED Orders 02/13/25 10:00 Complete Blood Count AUTO DIFF Stat Comprehensive Metabolic Panel Stat Lipase Stat Magnesium Stat NT-proBNP (BNP-Adult 18+) Stat PTT Partial Thromboplastin Pete Stat Prothrombin Time INR Stat Troponin & CK Cardiac Panel Stat 02/13/25 10:01 XR chest 1V Stat EKG-12 Lead Stat 02/13/25 10:29 CT head/brain wo con Stat Discontinued Medications Sodium Chloride (Normal Saline 0.9%) 1,000 mls @ 1,000 mls/hr IV BOLUS ONE Stop: 02/13/25 11:29 Last Infusion: 02/13/25 11:34 Dose: Infused Documented By: Admin: 02/13/25 10:40 Dose: 1,000 mls/hr Documented By: RICKI Acetaminophen (Ofirmev) 1,000 mg in 100 mls @ 400 mls/hr IV NOW ONE Stop: 02/13/25 10:44 Last Infusion: 02/13/25 11:09 Dose: Infused Documented By: Admin: 02/13/25 10:41 Dose: 400 mls/hr Documented By: RICKI Ketorolac Tromethamine (Ketorolac 30 Mg/Ml Vial) 15 mg IV NOW ONE Stop: 02/13/25 11:51 Last Admin: 02/13/25 12:01 Dose: 15 mg Documented By: SCOTTY Labetalol HCl (Labetalol 20 Mg/4 Ml Syringe) 5 mg IV NOW ONE Stop: 02/13/25 11:19 Last Admin: 02/13/25 11:24 Dose: 5 mg Documented By: SCOTTY Vital Signs Vital signs: Vital Signs - 8 hr 02/13/25 11:00 02/13/25 11:01 02/13/25 11:01 Pulse Rate 54 L 56 L Respiratory Rate 9 L 9 L Blood Pressure 195/92 H Pulse Oximetry 99 99 Oxygen Delivery Method 02/13/25 11:24 02/13/25 11:26 02/13/25 11:26 Pulse Rate 56 L 55 L Respiratory Rate 11 L Blood Pressure 191/96 H 191/96 H Pulse Oximetry 99 Oxygen Delivery Method 02/13/25 11:30 02/13/25 11:31 02/13/25 11:31 Pulse Rate 54 L 57 L Respiratory Rate 10 L 9 L Blood Pressure 172/101 H Pulse Oximetry 98 97 Oxygen Delivery Method 02/13/25 11:35 02/13/25 11:35 02/13/25 11:40 Pulse Rate 55 L 55 L Respiratory Rate 13 13 Blood Pressure 172/101 H Pulse Oximetry 99 97 Oxygen Delivery Method Room Air 02/13/25 11:40 02/13/25 11:45 02/13/25 11:45 Pulse Rate 57 L Respiratory Rate 11 L Blood Pressure 163/95 H 162/97 H Pulse Oximetry 98 Oxygen Delivery Method 02/13/25 11:50 02/13/25 11:50 02/13/25 11:50 Pulse Rate 57 L 56 L Respiratory Rate 13 Blood Pressure 163/96 H 163/96 H Pulse Oximetry 99 Oxygen Delivery Method 02/13/25 11:55 02/13/25 11:55 02/13/25 12:00 Pulse Rate 57 L 60 Respiratory Rate 10 L 17 Blood Pressure 163/92 H Pulse Oximetry 97 98 Oxygen Delivery Method 02/13/25 12:00 02/13/25 12:15 02/13/25 12:15 Pulse Rate 60 Respiratory Rate 13 Blood Pressure 160/91 H 156/87 H Pulse Oximetry 97 Oxygen Delivery Method 02/13/25 12:30 02/13/25 12:30 02/13/25 12:45 Pulse Rate 65 59 L Respiratory Rate 20 17 Blood Pressure 159/91 H Pulse Oximetry 98 99 Oxygen Delivery Method 02/13/25 12:45 02/13/25 13:00 02/13/25 13:00 Pulse Rate 59 L Respiratory Rate 15 Blood Pressure 151/90 H 155/92 H Pulse Oximetry 99 Oxygen Delivery Method Room Air 02/13/25 13:15 02/13/25 13:15 Pulse Rate 59 L Respiratory Rate 14 Blood Pressure 154/89 H Pulse Oximetry 98 Oxygen Delivery Method MDM - Dizziness Lab Data 02/13/25 10:00 02/13/25 10:00 Labs: Lab Results 02/13/25 Range/Units 10:00 WBC 5.8 (4.5-11.0) X10^3/uL RBC 5.10 (4.0-5.2) X10^6/uL Hgb 14.4 (12.0-16.0) g/dL Hct 43.3 (36-46) % MCV 84.9 (80-100) fL MCH 28.3 (26-34) PG MCHC 33.3 (30-36) % RDW 13.8 (11.6-14.8) % Plt Count 264 (150-400) X10^3/uL Neut % (Auto) 46.0 L (50-75) % Lymph % (Auto) 40.3 H (25-40) % Richardson % (Auto) 10.3 (3-14) % Eos % (Auto) 2.6 (2-4) % Baso % (Auto) 0.8 (0-2) % Neut # (Auto) 2700 (7051-9342) /uL Lymph # (Auto) 2400 (4599-3696) /uL Richardson # (Auto) 600 (0-900) /uL Eos # (Auto) 200 (0-450) /uL Baso # (Auto) 0 (0-100) /uL PT 11.9 (9.4-12.5) SECONDS INR 1.1 (0.9-1.3) APTT 37 H (25.1-36.5) SECONDS Sodium 139 (137-145) mmol/L Potassium 3.8 (3.4-5.1) mmol/L Chloride 103 (98-107) mmol/L Carbon Dioxide 22 (22-32) mmol/L BUN 16 (7-17) mg/dL Creatinine 0.64 (0.52-1.04) mg/dL Estimated GFR > 60 (>60) mL/min BUN/Creatinine Ratio 25.0 H (6-22) Glucose 104 H (70-100) mg/dL Calcium 10.2 (8.4-10.2) mg/dL Magnesium 1.9 (1.6-2.3) mg/dL Total Bilirubin 0.5 (0.2-1.3) mg/dL AST 44 H (14-36) IU/L ALT 34 (<35) IU/L Alkaline Phosphatase 57 (38-126) U/L Total Creatine Kinase 530 H (30-135) U/L Troponin I < 0.012 (0.01-0.034) ng/mL NT-Pro-B Natriuret Pep < 20 (<125) pg/mL Total Protein 8.3 H (6.3-8.2) g/dL Albumin 4.9 (3.5-5.0) g/dL Globulin 3.4 (1.7-4.1) g/dL Albumin/Globulin Ratio 1.4 (1.0-2.8) Lipase 193 (23-300) U/L Imaging Data CT scan - head: Radiologist's Impression: PROCEDURE: CT HEAD/BRAIN WO CON INDICATIONS: worst headache of life with HTN TECHNIQUE: Noncontrast 4.5 mm thick angled axial sections acquired from the foramen magnum to the vertex, with coronal and sagittal reformats. For radiation dose reduction, the following was used: automated exposure control, adjustment of mA and/or kV according to patient size. COMPARISON: [facility], XR CHEST 1V, 02/13/2025, 10:00. FINDINGS: Image quality: Diagnostic. CSF spaces: Basal cisterns are patent. No extra-axial fluid collections. Ventricles are normal in size and shape. Brain: No midline shift. No intracranial masses or hemorrhage. Hunter-white matter interface is normal. Skull and face: Calvarium and visualized facial bones are intact, without suspicious lesions. Sinuses: Visualized sinuses and mastoids are clear. IMPRESSION: No acute intracranial hemorrhage is seen. No acute intracranial pathology. To the limits of this noncontrast study, no findings of intracranial masses or mass effect can be seen. Dictated by: Bishnu Ashton M.D. on 02/13/2025 at 9:58 Chest x-ray: Radiologist's Impression: PROCEDURE: XR CHEST 1V INDICATIONS: chest pain TECHNIQUE: One view of the chest was acquired. COMPARISON: [facility], XR CHEST 2V, 05/06/2024, 13:22. [facility], CR, XR CHEST 2V, 09/30/2024, 7:41. FINDINGS: Surgical changes and devices: None. Lungs and pleura: Lungs are clear. No pleural effusions or pneumothorax. Mediastinum: Mediastinal contours appear normal. Heart size is normal. Bones and chest wall: No suspicious bony lesions. Overlying soft tissues appear unremarkable. IMPRESSION: Unremarkable portable chest. Dictated by: Bishnu Ashton M.D. on 02/13/2025 at 9:33 ECG Data Attestation: I personally reviewed and interpreted this ECG as follows: Prior ECG tracings: available for review Interpretation: Normal sinus rhythm rate 58 PA interval 136 QRS [address] changes no T- wave inversions MDM Narrative Medical decision making narrative: Patient 44-year-old female history of hypertension recently started on hydrochlorothiazide presenting today with headache and hypertension. Feeling very dizzy lightheaded did not pass out noted to be extremely hypertensive blood pressure is high as 200/110. With worse has headache of her life. She does get headaches but this is very atypical for her. CT was done and is negative Initially given IV Tylenol which did help some but still having pretty significant headache. She was then given labetalol 5 mg which did bring her blood pressure down quite a bit in his still having like a minor headache which he was given additional Toradol for. Ultimately headache is coming down and she was feeling much better. Blood work has been reviewed she has no leukocytosis no anemia no CHRIS normal electrolytes, troponin is negative CPK mildly elevated at 530. Overall patient is feeling much better possible reaction to medication. Blood pressure has remained down below 160 she was a blood pressure cuff. At this time recommend holding off taking hydrochlorothiazide and talking to her primary care provider. Discharge Plan Departure Patient Disposition: Home Clinical Impression: Hypertension, Headache, Medication reaction Instructions: Essential Hypertension Activity Restrictions/Additional Instructions: *You have been diagnosed with headache hypertension *What to do: At this time you may have had a medication reaction to hydrochlorothiazide. I would hold off taking this medication until you talk to your primary care provider. Please continue to check your blood pressure 1-2 times daily *Continue to take medications as directed *Follow up with your primary care provider in 2-3 days or call [phone] *Return to ER if you should have worsening headache persistent vomiting chest pain shortness of or any new, worsening or concerning symptoms Prescriptions: No Action albuterol sulfate 90 mcg/actuation HFA aerosol inhaler inhalation montelukast 10 mg tablet 10 mg PO DAILY fluticasone propion-salmeterol [Wixela Inhub] 500-50 mcg/dose blister with device inhalation Patient Comments: [NO ORIGINAL SIG] hydrochlorothiazide 12.5 mg tablet 12.5 mg PO DAILY Qty: 30 1RF dicyclomine 10 mg capsule 10 mg PO TID PRN (Reason: abdominal pain) Qty: 30 2RF Qvar RediHaler 40 mcg/actuation HFA aerosol breath activated 1 inh inhalation BID sertraline 100 mg tablet 100 mg PO DAILY MDD 100mg Qty: 90 3RF Rx Instructions: Take one tablet by mouth daily cetirizine [Zyrtec] 10 mg tablet 10 mg PO DAILY multivitamin tablet 1 tab PO DAILY Referrals: Makenzie Thompson MD [Primary Care Provider] - Stand Alone Forms: Patient Portal/API/Survey
[2025-02-13 10:32] LABS: Alanine Aminotransferase 34 IU/L (<35); Albumin 4.9 g/dL (3.5-5.0); Albumin Globulin Ratio 1.4 (1.0-2.8); Alkaline Phosphatase 57 U/L (38-126); Aspartate Aminotransferase 44 IU/L (14-36); Bilirubin Total 0.5 mg/dL (0.2-1.3); Blood Urea Nitrogen 16 mg/dL (7-17); Calcium 10.2 mg/dL (8.4-10.2); Carbon Dioxide 22 mmol/L (22-32); Chloride 103 mmol/L (98-107); Creatine Kinase 530 U/L (30-135); Estimated Glomerular Filt Rate > 60 mL/min (>60); Globulin 3.4 g/dL (1.7-4.1); Glucose 104 mg/dL (70-100); HEMOLYSIS 17 (0-50); Lipase 193 U/L (23-300); Magnesium 1.9 mg/dL (1.6-2.3); Potassium 3.8 mmol/L (3.4-5.1); Sodium 139 mmol/L (137-145); Total Protein 8.3 g/dL (6.3-8.2)
[2025-02-13] MEDS: SODIUM CHLORIDE 0.9% 1,000 ML 1000 ML IV (10:40)
[2025-02-13] MEDS: ACETAMINOPHEN IV 1,000 MG/100 ML VIAL 400 MG IV (10:41)
[2025-02-13 10:44] LABS: NT-proBNP (BNP-Adult 18+) < 20 pg/mL (<125); Troponin I < 0.012 ng/mL (0.01-0.034)
[2025-02-13] MEDS: LABETALOL 20 MG/4 ML SYRINGE 5 MG IV (11:24)
[2025-02-13] MEDS: KETOROLAC 30 MG/ML VIAL 15 MG IV (12:01)
== END 2025-02-13 13:30 | disposition home or self-care (01) ==
PROVIDERS: Emergency Provider Emergency Medicine; Family Provider Family Medicine; PCP Family Medicine
DX: I10 Essential (primary) hypertension (principal); R51.9 Headache, unspecified; R07.9 Chest pain, unspecified; R29.700 NIHSS score 0; T50.905A Adverse effect of unspecified drugs, medicaments and biological substances, initial encounter
CPT/HCPCS: 36415; 70450; 71045; 80053; 82550; 83690; 83735; 83880; 84484; 85025; 85610; 85730; 93005; 96365; 96375; 99284; J0131; J1885

== ENCOUNTER → 2025-02-17 08:04 | Outpatient (CLI) | payer OTHER, SELFPAY ==
[2025-02-17 08:39] LABS: Add Manual Diff / Slide Review NO; Basophils Absolute Auto 0 /uL (0-100); Basophils Percent Auto 0.5 % (0-2); Eosinophils Absolute Auto 200 /uL (0-450); Eosinophils Percent Auto 4.2 % (2-4); Hematocrit 42.4 % (36-46); Hemoglobin 14.1 g/dL (12.0-16.0); Lymphocytes Absolute Auto 2200 /uL (1100-4500); Lymphocytes Percent Auto 39.2 % (25-40); Mean Corpuscular HGB Conc 33.2 % (30-36); Mean Corpuscular Hemoglobin 27.9 PG (26-34); Monocytes Absolute Auto 500 /uL (0-900); Monocytes Percent Auto 9.4 % (3-14); Neutrophils Absolute Auto 2700 /uL (1500-7000); Neutrophils Percent Auto 46.7 % (50-75); Platelet Count 280 X10^3/uL (150-400); Red Blood Cell Count 5.05 X10^6/uL (4.0-5.2); Red Cell Distribution Width 14.1 % (11.6-14.8); White Blood Cell Count 5.7 X10^3/uL (4.5-11.0)
[2025-02-17 08:58] LABS: Alanine Aminotransferase 37 IU/L (<35); Albumin 4.9 g/dL (3.5-5.0); Albumin Globulin Ratio 1.6 (1.0-2.8); Alkaline Phosphatase 51 U/L (38-126); Aspartate Aminotransferase 39 IU/L (14-36); Bilirubin Total 0.5 mg/dL (0.2-1.3); Blood Urea Nitrogen 18 mg/dL (7-17); Calcium 9.7 mg/dL (8.4-10.2); Carbon Dioxide 25 mmol/L (22-32); Chloride 101 mmol/L (98-107); Cholesterol 169 mg/dL (140-199); Estimated Glomerular Filt Rate > 60 mL/min (>60); Glucose 99 mg/dL (70-100); HDL Cholesterol 41 mg/dL (40-60); HEMOLYSIS < 15 (0-50); LDL Cholesterol Calculated 112 mg/dL (<100); Potassium 3.8 mmol/L (3.4-5.1); Sodium 139 mmol/L (137-145); Total Protein 7.9 g/dL (6.3-8.2); Triglycerides 82 mg/dL (35-150)
[2025-02-17 08:59] LABS: HEMOLYSIS < 15 (0-50); Iron 102 ug/dL (37-170)
[2025-02-17 09:10] LABS: Percent Iron Saturation 28 % (15-50); Total Iron Binding Capacity 360 ug/dL (265-497); Transferrin 295 mg/dL (206-381)
[2025-02-17 09:15] LABS: Follicle Stimulating Hormone 2.55 mIU/mL; Luteinizing Hormone 1.66 mIU/mL; Vitamin D 25 Hydroxy (D3) 32.7 ng/mL (30.0-100.0)
[2025-02-17 09:29] LABS: TSH w/ Reflex to FT4 1.76 uIU/mL (0.47-4.68)
[2025-02-17 09:30] LABS: Cortisol AM (Before 10AM) 3.49 ug/dL (4.46-22.7)
[2025-02-17 09:33] LABS: Ferritin 88 ng/mL (6-137)
[2025-02-17 09:50] LABS: Vitamin B12 596 pg/mL (239-931)
[2025-02-17 10:19] LABS: Folate 11.3 ng/mL (2.76-20.0)
== END ==
PROVIDERS: Family Provider Family Medicine; PCP Family Medicine; Referring Provider Family Medicine; Visit Provider Family Medicine
DX: K90.0 Celiac disease (principal); R63.5 Abnormal weight gain; G47.00 Insomnia, unspecified; K58.0 Irritable bowel syndrome with diarrhea; F41.9 Anxiety disorder, unspecified; F32.9 Major depressive disorder, single episode, unspecified; I99.8 Other disorder of circulatory system; R51.9 Headache, unspecified; R00.2 Palpitations; Z86.79 Personal history of other diseases of the circulatory system; Z86.39 Personal history of other endocrine, nutritional and metabolic disease; I10 Essential (primary) hypertension
CPT/HCPCS: 36415; 80053; 80061; 82088; 82306; 82533; 82570; 82607; 82728; 82746; 83001; 83002; 83540; 83550; 83835; 84244; 84443; 85025

== ENCOUNTER → 2025-02-22 | Outpatient (CLI) | payer OTHER, SELFPAY ==
--- NOTE | 2025-02-22 07:33 | DI.US.S_ITS ---
PROCEDURE: US RENAL DOPPLER INDICATIONS: HTN TECHNIQUE: Real time scanning was performed of both kidneys, followed by Color and pulsed Doppler interrogation of the renal vessels. COMPARISON: None. FINDINGS: Aortic peak systolic velocity: 70.0 cm/s. Right side: Hunter-scale imaging: Kidney is 11.7 cm long. No hydronephrosis. No nephrolithiasis. Renal cortex is normal in echogenicity. No suspicious solid renal masses. Proximal renal artery peak systolic velocity: 161 cm/s. Mid renal artery peak systolic velocity: 108 cm/s. Distal renal artery peak systolic velocity: 103 cm/s. Renal vein: Patent, without thrombus. Peak renal/aortic ratio (RAR): 2.3 Left side: Hunter-scale imaging: Kidney is 13.6 cm long. No hydronephrosis. Incidental 0.8 cm nonobstructing calculus in the lower pole. Renal cortex is normal in echogenicity. No suspicious solid renal masses. Proximal renal artery peak systolic velocity: 71 cm/s. Mid-renal artery peak systolic velocity: 98 cm/s. Distal renal artery peak systolic velocity: 92 cm/s. Renal vein: Patent, without thrombus. Peak renal/aortic ratio (RAR): 1.4 IMPRESSION: No Doppler ultrasound evidence of renal artery stenosis Approved by: Mahesh Silva M.D. on 02/22/2025 at 16:53
== END ==
LOC: US 07:33
PROVIDERS: Family Provider Family Medicine; PCP Family Medicine; Referring Provider Family Medicine; Visit Provider Family Medicine
DX: I10 Essential (primary) hypertension (principal); I99.8 Other disorder of circulatory system; N20.0 Calculus of kidney; Z86.79 Personal history of other diseases of the circulatory system
CPT/HCPCS: 93975

== ENCOUNTER → 2025-02-25 07:45 | Outpatient (CLI) | payer OTHER, SELFPAY | PROVIDERS: Family Provider Family Medicine; PCP Family Medicine; Referring Provider Family Medicine; Visit Provider Family Medicine | DX: R00.2 Palpitations (principal) | CPT/HCPCS: 93246; 93248 ==

== ENCOUNTER → 2025-03-09 06:59 | Outpatient (CLI) | payer OTHER, SELFPAY ==
--- NOTE | 2025-03-09 07:00 | DI.ECHO.S_ITS ---
[facility] : : [id number] : [place] : : [id number] : : Phone: [phone] Echocardiogram Report + + :Name: RALPH BIRMINGHAM Study Date: 03/09/2025 Height: 66 in : :[facility] [employer] [facility] ReadingLocation: Weight: 195 lb : : Gender: Female BSA: 2.0 m2 : :: 1980 Age: 44 yrs BP: 149/105 mmHg: :Reason For Study: PALPITATIONS, HYPERTENSION : :Ordering Physician: HUGH, : :SONIDO Sanches Performed By: Julio Lopes : :Referring: SONIDO REESE : + + Interpretation Summary 1) Normal left ventricular thickness and size with low normal systolic function (EF 50-55%). 2) Normal right ventricular size and function. 3) No significant valvular abnormalities. 4) Significant hypertension present during the study (BP 149/105mmHg). 5) No prior Echo available for comparison. Procedure: A two-dimensional transthoracic echocardiogram with color flow and Doppler was performed. The study quality was technically good. There is no prior echocardiogram noted for this patient. The patient was in normal sinus rhythm during the exam. Left Ventricle: The left ventricle is normal in size. There is normal left ventricular wall thickness. There is no ventricular septal defect visualized. The ejection fraction is estimated to be 50-55%. There are no focal wall motion abnormalities. Diastolic parameters suggest probable normal left ventricular diastolic function and normal filling pressures. Right Ventricle: The right ventricle is normal in size and function. Atria: The left atrial size is normal. Right atrial size is normal. There is no Doppler evidence for an interatrial shunt. Mitral Valve: The mitral valve leaflets appear normal. There is no evidence of stenosis, fluttering, or prolapse. There is trace mitral regurgitation. Aortic Valve: The aortic valve is trileaflet. The aortic valve opens well. There is no aortic valve stenosis. No aortic regurgitation is present. Tricuspid Valve: The tricuspid valve leaflets are thin and pliable. There is mild tricuspid regurgitation. The right ventricular systolic pressure is estimated to be at least 28 mmHg based on an estimated right atrial pressure of 3 mm Hg. Pulmonic Valve: The pulmonic valve leaflets are thin and pliable; valve motion is normal. There is no pulmonic valvular regurgitation. Great Vessels: The aortic root is normal size. The dimensions of the ascending aorta are normal. The pulmonary artery is normal size. The IVC is of normal diameter and collapses greater than 50% with a sniff. This suggests a low right atrial pressure of 3 mm Hg. Pericardium/ Pleura There is no pericardial effusion. There is no pleural effusion. MMode/2D Measurements & Calculations LVIDd: 5.2 cm LVOT diam: 1.9 cm LVIDs: 3.2 cm Ao root diam: 3.3 cm FS: 37.6 % asc Aorta Diam: 3.6 cm EPSS: 0.36 cm Ao Arch Diam (Prox Trans): 1.9 cm IVSd: 0.80 cm LVPWd: 0.78 cm LV payne. diameter/BSA (cm/m^2): 2.6 LV sys. diameter/BSA (cm/m^2): 1.6 LA A2 area: 17.2 cm2 RA long axis: 5.4 cm LA A4 area: 22.3 cm2 RA area: 16.0 cm2 LA length (vol): 6.0 cm RA vol: 40.2 ml LA vol: 54.2 ml RA : 20.3 ml/m2 LA vol index: 27.4 ml/m2 IVC diam: 1.9 cm RVD1 (basal): 3.5 cm RVD2 (mid): 2.8 cm TAPSE: 2.2 cm Doppler Measurements & Calculations Ao V2 max: 164.4 cm/sec LVOT Max Zoran: 138.9 cm/sec Ao V2 mean: 109.6 cm/sec LV V1 max P.7 mmHg Ao max P.8 mmHg LV V1 VTI: 30.5 cm Ao mean P.5 mmHg ARELI(I,D): 2.4 cm2 Ao V2 VTI: 36.7 cm ARELI(V,D): 2.4 cm2 sev ratio: 0.83 ARELI indexed to BSA (cm^2/m^2): 1.2 MV E max zoran: 65.4 cm/sec TR max zoran: 252.4 cm/sec MV A max zoran: 57.3 cm/sec TR max P.5 mmHg MV E/A: 1.1 PA V2 max: 82.8 cm/sec Med Peak E' Zoran: 6.8 cm/sec PA V2 mean: 66.1 cm/sec E/E' med: 9.7 PA mean P.8 mmHg Lat Peak E' Zoran: 8.6 cm/sec PA pr(Accel): 41.3 mmHg E/E' lat: 7.6 E/e' average: 8.6 MV dec time: 0.20 sec SV(LVOT): 87.3 ml Reading Physician:12:55 PM
== END ==
LOC: ECHO 06:59
PROVIDERS: Family Provider Family Medicine; PCP Family Medicine; Referring Provider Family Medicine; Visit Provider Family Medicine
DX: I07.1 Rheumatic tricuspid insufficiency (principal); I99.8 Other disorder of circulatory system; R00.2 Palpitations; Z86.79 Personal history of other diseases of the circulatory system
CPT/HCPCS: 93306

== ENCOUNTER → 2025-03-16 08:24 | Outpatient (CLI) | payer OTHER, SELFPAY ==
--- NOTE | 2025-03-16 08:25 | DI.NM.S_ITS ---
PROCEDURE: NM EXERCISE TREADMILL NON NUC COMPARISON: None. INDICATIONS: Palpitations, HTN, BP instability FINDINGS: The patient exercised for 6 minutes and 52 seconds, reaching 88% of maximum predicted heart rate. Hypertension at rest (BP 128/100mmHg) and hypertensive response to exercise (202/116mmHg). Mildly reduced exercise tolerance (10.1METS, OSWALD +17%). No angina, no diagnostic ST changes, and no ectopy during exercise or recovery. IMPRESSION: Low risk, normal treadmill ECG only stress test with mildly reduced exercise tolerance (OSWALD +17%). Hypertension at rest (BP 128/100mmHg) and hypertensive response to exercise (202/116mmHg). No angina during the study. Dictated by: Lillian Bell MD on 03/17/2025 at 14:15 Approved by: Lillian Bell MD on 03/17/2025 at 14:17
== END ==
PROVIDERS: Family Provider Family Medicine; PCP Family Medicine; Referring Provider Family Medicine; Visit Provider Family Medicine
DX: R00.2 Palpitations (principal); I10 Essential (primary) hypertension; I99.8 Other disorder of circulatory system
CPT/HCPCS: 93017

== ENCOUNTER → 2025-05-03 14:11 | Outpatient (CLI) | payer OTHER, SELFPAY ==
--- NOTE | 2025-05-03 14:12 | DI.RAD.S_ITS ---
PROCEDURE: XR DEXA AXIAL SKELETON INDICATIONS: Celiac disease COMPARISON: None. FINDINGS: Lumbar Spine: Bone mineral density 0.989 g/cm2, T score -0.5. Left Femoral Neck: Bone mineral density 0.882 g/cm2, T score 0.3. Left Hip: Bone mineral density 0.951 g/cm2, T score 0.1. Fracture Risk Calculation (when applicable): 10-year fracture risk of a major osteoporotic fracture 2.5 percent and of a hip fracture <0.1 percent. (T score greater or equal to -1.0 to: NORMAL) (T score from -1.1 to -2.4: OSTEOPENIA) (T score less than or equal to -2.5: OSTEOPOROSIS) IMPRESSION: Normal--- recommend repeat DEXA as clinically indicated. Follow-up guidelines as follows: Osteoporosis: Consider a repeat DEXA and Vertebral Fracture Assessment (VFA) exam in 2 years or sooner if medically necessary, to reassess this patient's status. Osteopenia: Consider a repeat DEXA in 2-3 years to reassess this patient's status, or if there is a new clinical indication. Normal: Consider a repeat DEXA in 5 years or sooner, or if there is a new clinical indication. All treatment decisions require clinical judgment and consideration of individual patient factors, including patient preferences, comorbidities, previous drug use, risk factors not captured in the FRAX model (e.g., frailty, falls, vitamin D deficiency, increased bone turnover, interval significant decline in bone density ) and possible under- or over-estimation of fracture risk by FRAX. In addition, the NOF Guide recommends that FDA-approved medical therapies be considered in postmenopausal women and men age >= 50 years with a: * Hip or vertebral (clinical or morphometric) fracture * T-score of <=-2.5 at the spine or hip * Ten-year fracture probability by FRAX of >= 3% for hip fracture or >=20% for major osteoporotic fracture. Dictated by: Jesus Lo M.D. on 05/03/2025 at 20:11 Approved by: Jesus Lo M.D. on 05/03/2025 at 20:17
== END ==
PROVIDERS: PCP Family Medicine; Referring Provider Family Medicine; Visit Provider Family Medicine
DX: K90.0 Celiac disease (principal)
CPT/HCPCS: 77080

== ENCOUNTER → 2025-05-04 07:15 | Outpatient (CLI) | payer OTHER, SELFPAY ==
[2025-05-04 08:21] LABS: Alanine Aminotransferase 34 IU/L (<35); Albumin 4.6 g/dL (3.5-5.0); Albumin Globulin Ratio 1.5 (1.0-2.8); Alkaline Phosphatase 56 U/L (38-126); Blood Urea Nitrogen 20 mg/dL (7-17); Calcium 9.3 mg/dL (8.4-10.2); Carbon Dioxide 21 mmol/L (22-32); Chloride 106 mmol/L (98-107); Estimated Glomerular Filt Rate > 60 mL/min (>60); Globulin 3.0 g/dL (1.7-4.1); Glucose 107 mg/dL (70-99); HEMOLYSIS < 15 (0-50); Potassium 4.1 mmol/L (3.4-5.1); Sodium 138 mmol/L (137-145); Total Protein 7.6 g/dL (6.3-8.2)
[2025-05-04 08:51] LABS: Cortisol AM (Before 10AM) 10.8 ug/dL (4.46-22.7)
== END ==
PROVIDERS: PCP Family Medicine; Referring Provider Family Medicine; Visit Provider Family Medicine
DX: I99.8 Other disorder of circulatory system (principal); R00.2 Palpitations; R63.5 Abnormal weight gain
CPT/HCPCS: 36415; 80053; 82024; 82533

== ENCOUNTER → 2025-05-13 08:44 | Outpatient (CLI) | payer OTHER, SELFPAY ==
--- NOTE | 2025-05-13 08:45 | DI.US.S_ITS ---
MM diagnostic mammo BI, US breast RT limited: 05/13/2025 BI-RADS: 1 CLINICAL: 44-year old female for bilateral diagnostic mammogram and right diagnostic breast ultrasound. Tyrer-Cuzick lifetime risk of 10.3%. Current reported family history of breast cancer: mother. The patient reports a painful palpable abnormality (1 month) in the right breast. PRIOR EXAMS 04/30/2024, 04/17/2024, 03/05/2018. MAMMOGRAPHY TECHNIQUE: 2D and 3D (tomosynthesis) digital mammographic views obtained, with additional images as needed for full coverage. Current study was also evaluated with a Computer Aided Detection (CAD) system. ULTRASOUND TECHNIQUE TARGETED Right Breast Ultrasound: Real-time ultrasound exam was performed focused to area of clinical and/or imaging concern. DENSITY B. There are scattered areas of fibroglandular density. MAMMOGRAPHY FINDINGS Right: A skin marker was placed in the area of concern, and no mammographic abnormalities are identified or to account for concern by the patient of a palpable lump and pain/tenderness. No suspicious mass, asymmetry, microcalcification, or other abnormality seen. Left: No suspicious mass, asymmetry, microcalcification, or other abnormality seen. ULTRASOUND FINDINGS Right: Upper Outer at 10:00, 7 cm from nipple: Underlying the surface marker, there is no sonographic abnormality to account for concern by the patient of a palpable lump and pain/tenderness. IMPRESSION: * No evidence of malignancy. RECOMMENDATIONS Bilateral * Annual screening mammography. COMMENTS: Findings and recommendations were conveyed to the patient during today's evaluation. OVERALL ASSESSMENT CATEGORY BI-RADS-1: Negative. The [employer] recommends annual screening mammography beginning at age 40 for women with average risk of breast cancer. ELECTRONICALLY SIGNED: Fern Rascon M.D. on 05/13/2025 at 11:36:15 AM PT Interpreting Station ID: [id number]
== END ==
LOC: MAMMO 08:44
PROVIDERS: PCP Family Medicine; Referring Provider Family Medicine; Visit Provider Family Medicine
DX: N64.4 Mastodynia (principal); Z80.3 Family history of malignant neoplasm of breast
CPT/HCPCS: 76642; 77066; G0279